=== PATIENT | male | born 1935 | race African-American/Black ===

== ENCOUNTER → 2018-12-08 | Outpatient (CLI) | payer MEDICARE ==
--- NOTE | 2018-12-08 15:31 | RAD ---
AP standing knees, single view, 12/08/2018: HISTORY: Knee pain, swelling There is severe narrowing of the medial compartments of both knee joints with moderate marginal spurring. There is a mild associated varus deformity, more so on the right. A nonspecific sclerotic focus is noted in the proximal left tibia medially. No fracture is identified on this limited exam. Electronically signed by: Darshan Fox MD (12/08/2018 3:28 PM) [facility]
== END | disposition home or self-care (01) ==
LOC: RAD 12:30
PROVIDERS: ATTEND Physical Medicine & Rehabilitation
DX: M17.0 Bilateral primary osteoarthritis of knee (principal); M76.892 Other specified enthesopathies of left lower limb, excluding foot; M76.891 Other specified enthesopathies of right lower limb, excluding foot
CPT/HCPCS: 73565

== ENCOUNTER 2019-07-27 14:34 | Inpatient (IN) | payer MEDICARE ==
[~2019-07-27] VITALS: Ht 167.6 cm; Wt 51.5 kg
[2019-07-27 16:10] VITALS: BP 119/81
--- NOTE | 2019-07-27 16:10 | PDOC1 ---
History and Physical Date of Admission Date of Admission DATE: 07/27/19 TIME: 16:09 Identification/Chief Complaint Chief Complaint Shortness of breath Source Source: Patient History of Present Illness History of Present Illness Mr Dow is an 84yo M w/ PMHx OA, smoker with almost 60 pack year history, ex drinker (stopped 20 years ago) who has not seen a physician in years who presented to [facility] ED feeling short of breath for the past 10 months but particularly so the past 2 days. It is worsened by exertion. No recent sick contacts. In ED at [facility] he was found hypoxic to 86% despite 2L NCO2. He underwent CXR showing diffuse bilateral infiltrates and apical emphysematous changes. Labs significant for K of 5.1, Cr 1.1ALT 173, AST 217, platelets 176, MCV 101. D dimer was 586, troponin 0.11. EKG showed sinus tachycardia, RVH criteria, biatrial enlargement and ST elevations in julia-lateral leads. He was given 40mg IV lasix in the ED and duonebs with only mild improvement. Still required O2. He lives at home in his . 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 Past Medical History Cardiovascular: No pertinent hx Pulmonary: No pertinent hx GI: No pertinent hx Heme/Onc: No pertinent hx Hepatobiliary: No pertinent hx Psych: No pertinent hx Infectious disease: No pertinent hx ENT: No pertinent hx Renal/: No pertinent hx Endocrine: No pertinent hx Dermatology: No pertinent hx Past Surgical History Past Surgical History: No pertinent history Family History Family History: Coronary Artery Disease, High Cholestrol, Hypertension Social History Smoke: 1 pack per day ALCOHOL: none Drugs: None ROS General: YES: Fatigue, Malaise; No: Chills, Night Sweats, Appetite, Other PSYCHOLOGICAL ROS: YES: Anxiety; No: Behavioral Disorder, Concentration difficultie, Decreased libido, Depression, Disorientation, Hallucinations, Hostility, Irritablity, Memory difficulties, Mood Swings, Obsessive thoughts, Physical abuse, Sexual abuse, Sleep disturbances, Suicidal ideation, Other Eyes: No Blurry vision, No Decreased vision, No Double vision, No Dry eyes, No Excessive tearing, No Eye Pain, No Itchy Eyes, No Loss of vision, No Photophobia, No Scotomata, No Uses contacts, No Uses glasses, No Other HEENT: No: Heacaches, Visual Changes, Hearing change, Nasal congestion, Nasal discharge, Oral lesions, Sinus pain, Sore Throat, Epistaxis, Sneezing, Snoring, Tinnitus, Vertigo, Vocal changes, Other ALLERGY AND IMMUNOLOGY: No: Hives, Insect Bite Sensitivity, Itchy/Watery Eyes, Nasal Congestion, Post Nasal Drip, Seasonal Allergies, Other Hematological and Lymphatic: No: Bleeding Problems, Blood Clots, Blood Trans fusions, Brusing, Night Sweats, Pallor, Swollen Lymph Nodes, Other ENDOCRINE: No: Breast Changes, Galactorrhea, Hair Pattern Changes, Hot Flashes, Malaise/lethargy, Mood Swings, Palpitations, Polydipsia/polyuria, Skin Changes, Temperature Intolerance, Unexpected Weight Changes, Other Breast: No New/Changing Breast Lumps, No Nipple changes, No Nipple discharge, No Other Respiratory: YES: Cough, Shortness of breath, SOB with excertion, Tachypnea, Wheezing; No: Hemoptysis, Orthopnea, Pleuritic Pain, Sputum Changes, Stridor, Other Cardiovascular: No Chest Pain, No Palpitations, No Orthopnea, No Paroxysmal Noc. Dyspnea, No Edema, No Lt Headedness, No Other Gastrointestinal: No Nausea, No Vomiting, No Abdominal Pain, No Diarrhea, No Constipation, No Melena, No Hematochezia, No Other Genitourinary: No Dysuria, No Frequency, No Incontinence, No Hematuria, No Retention, No Discharge, No Urgency, No Pain, No Flank Pain, No Other, No , No , No , No , No , No , No Musculoskeletal: No Gait Disturbance, No Joint Pain, No Joint Stiffness, No Joint Swelling, No Muscle Pain, No Muscular Weakness, No Pain In:, No Swelling In:, No Other Neurological: No Behavorial Changes, No Bowel/Bladder ControlChng, No Confusion, No Dizziness, No Gait Disturbance, No Headaches, No Impaired Coord/balance, No Memory Loss, No Numbness/Tingling, No Seizures, No Speech Problems, No Tremors, No Visual Changes, No Weakness, No Other Skin: No Dry Skin, No Eczema, No Hair Changes, No Lumps, No Mole Changes, No Mottling, No Nail Changes, No Pruritus, No Rash, No Skin Lesion Changes, No Other, No Acne Physical Exam General: Alert, Oriented X3, Cooperative, No acute distress HEENT: Atraumatic, PERRLA, EOMI, Mucous membr. moist/pink, Other (Right ocular strabismus) Lungs: Other (Diffuse wheezes) Heart: S1S2, other (Tachycardia) Abdomen: Normal bowel sounds, Soft, No tenderness, No hepatosplenomegaly, No masses Rectal Exam: not examined Extremities: No clubbing, No cyanosis, No edema, Normal pulses, No tenderness/swelling Skin: No rashes, No breakdown, No significant lesion Neuro: Normal gait, Normal speech, Strength at 5/5 X4 ext, Normal tone, Sensation intact, Cranial nerves 3-12 NL, Reflexes 2+ Psych/Mental Status: Mental status NL, Mood NL Images Images CXR - diffuse bilateral infiltrates and apical emphysematous changes. VTE Prophylaxis Ordered VTE Prophylaxis Devices: No VTE Pharmacological Prophylaxi: Yes Assessment/Plan Assessment/Plan A/P: Acute hypoxic respiratory failure - no formal diagnosis of COPD but has emphysematous changes on CXR Emphysema - by CXR. Will consult pulm. This is an acute COPD exacerbation, will give nebs, pulm consultation Smoker - counseled on cessation. Has smoked almost Elevated troponin - denies CP, likely this is demand ischemia, will trend troponins. Advise cardiology of admit and admit to CVC Transaminitis - he stopped drinking 20 years ago, concerning for underlying liver disease. Will trend Pulmonary infiltrates - likely this is interstitial fluid, given lasix in ED Thrombocytopenia - will monitor, uncertain etiology Macrocytosis - no anemia, does not drink. Will check B12 level Tachycardia - concerning with his obvious smoking history and emphysema. D dimer was not negative. Will get CTPA to check for acute pulmonary embolism FEN - Cardiac diet PPX - lovenox FULL CODE Dispo - inpatient for new hypoxia NUHA AMANDA MD Jul 27, 2019 16:10
[2019-07-27] MEDS ORDERED: ONDANSETRON PF 4 MG/2 ML VIAL. IV PRN (16:30)
[2019-07-27] MEDS ORDERED: DOCUSATE SODIUM 100 MG CAPSULE. PO PRN (16:30)
[2019-07-27] MEDS ORDERED: busPIRone 5 MG TABLET. PO PRN (16:30)
[2019-07-27] MEDS ORDERED: ACETAMINOPHEN 325 MG TABLET. PO PRN (16:30)
[2019-07-27] MEDS ORDERED: traZODone 50 MG TABLET. PO PRN (16:30)
[2019-07-27] MEDS ORDERED: ALBUTEROL SULFATE 2.5 MG/3 ML NEBU. NEB PRN (16:30)
[2019-07-27] MEDS: IPRATRPIUM/ALBUTEROL 0.5/2.5MG 3 ML NEBU. NEB SCH ×3 (16:39→23:28)
[2019-07-27 18:55] LABS: CREATININE 1.1 mg/dL (0.7-1.3); GFR 77.5
[2019-07-27] MEDS ORDERED: IOHEXOL 350 MG/ML 100 ML VIAL. IV ONE (19:15)
[2019-07-27 19:17] VITALS: BP 117/72
[2019-07-27] MEDS ORDERED: CONTRAST GIVEN. MC PRN (19:30)
[2019-07-27] MEDS: BUDESONIDE 0.5 MG/2 ML NEBU. NEB SCH (20:35)
[2019-07-27] MEDS: methylPREDNISolone SOD SUCC PF 40 MG/ML VIAL. IV SCH (21:32)
[2019-07-27 22:59] VITALS: BP 90/56
--- NOTE | 2019-07-27 23:50 | RAD ---
EXAM: CT ANGIOGRAPHY OF THE CHEST WITH AND WITHOUT CONTRAST. HISTORY: Tachycardia, elevated d-dimer. TECHNIQUE: Computed tomographic angiography of the chest was performed before and after the intravenous administration of 100 mL Omnipaque 350. 3-D maximum intensity projections were also performed. COMPARISON: None. FINDINGS: Images of the upper abdomen reveal no acute abnormality. Bone windows reveal no suspicious lesions. There is some motion artifact in the bases, limiting sensitivity for small peripheral emboli. No pulmonary emboli are identified. There is no aortic dissection or aneurysm. Bilateral hilar lymph nodes are prominent. One inferiorly on the left measures 2.0 x 1.2 cm. Another inferiorly on the right measures 1.6 x 1.0 cm. There is no pleural or pericardial effusion. The right ventricle is enlarged. There is some flattening of the interventricular septum. The main pulmonary artery measures 3.0 cm. There is moderate to severe centrilobular emphysema. There are mild nodular branching infiltrates in both lower lobes and scattered mild bronchiectasis. IMPRESSION: 1. No pulmonary embolism. 2. Moderate to severe centrilobular emphysema. Mild nodular infiltrates in the bases suggest an atypical infectious process which may be chronic. 3. And bilateral hilar lymph nodes are likely reactive in this setting. Follow-up could be performed if there is persistent concern. 4. Right ventricular enlargement suggests pulmonary arterial hypertension. *One or more of the following individualized dose reduction techniques were utilized for this examination: 1. Automated exposure control. 2. Adjustment of the mA and/or kV according to patient size. 3. Use of iterative reconstruction technique. Electronically signed by: Tomas Workman MD (07/27/2019 11:47 PM) [facility]
[2019-07-28] MEDS: IPRATRPIUM/ALBUTEROL 0.5/2.5MG 3 ML NEBU. NEB SCH ×6 (01:33→23:20)
[2019-07-28 03:21] LABS: BASO % 0 % (0-3); EOS % 0 % (0-3); HEMATOCRIT 50.1 % (39.0-53.0); HEMOGLOBIN 16.2 g/dL (13.0-17.5); LYMPH # 0.3 x10^3/uL (1.0-4.8); LYMPH % 11 % (24-48); MEAN CORPUSCULAR HEMOGLOBIN 33 pg (25-35); MEAN CORPUSCULAR HGB CONC 32 g/dL (31-37); MEAN CORPUSCULAR VOLUME 101 fL (79-100); MONO # 0.2 x10^3/uL (0.0-1.1); MONO % 9 % (0-9); NEUT # 2.3 x10^3/uL (1.8-7.7); NEUT % 80 % (31-73); PLATELET COUNT 159 x10^3/uL (140-400); RED BLOOD COUNT 4.98 x10^6/uL (4.30-5.70); WHITE BLOOD COUNT 2.9 x10^3/uL (4.0-11.0)
[2019-07-28 03:32] VITALS: BP 106/68
[2019-07-28 03:40] LABS: ALBUMIN 2.9 g/dL (3.4-5.0); ALBUMIN/GLOBULIN RATIO 0.7 (1.0-1.7); CALCIUM 8.6 mg/dL (8.5-10.1); CREATININE 0.8 mg/dL (0.7-1.3); POTASSIUM 4.9 mmol/L (3.5-5.1); TOTAL BILIRUBIN 0.3 mg/dL (0.2-1.0); TOTAL PROTEIN 7.2 g/dL (6.4-8.2)
[2019-07-28] MEDS: methylPREDNISolone SOD SUCC PF 40 MG/ML VIAL. IV SCH ×3 (06:13→22:00)
[2019-07-28 07:00] VITALS: BP 99/54
[2019-07-28] MEDS: BUDESONIDE 0.5 MG/2 ML NEBU. NEB SCH ×2 (08:08→20:00)
[2019-07-28 08:10] LABS: CHOLESTEROL/HDL RATIO 3.8
--- NOTE | 2019-07-28 08:15 | EKG ---
[facility] [address] [place] [id number] Test Date: 2019-07-28 Test Time: 09:10:04 Pat Name: RONAL ROMERO Department: Room: 210 1 Gender: M Academic Adviser: SJ : [id number] Requested By: MICHELE RIVERA Order Number: [id number] Reading MD: Barron Smith MD Measurements Intervals [place] Rate: 99 P: 86 [place]: 128 QRS: -146 QRSD: 88 T: -8 QT: 334 QTc: 434 Interpretive Statements SINUS RHYTHM NON-SPECIFIC ST/T CHANGES Electronically Signed On 08-10-2019 9:37:32 SECURITY AND COMPLIANCE ANALYST by Barron Smith MD
--- NOTE | 2019-07-28 08:17 | PDOC ---
PROGRESS NOTES Chief Complaint Chief Complaint A/P: Acute hypoxic respiratory failure - no formal diagnosis of COPD but has emphysematous changes on CXR and CT Emphysema - by CXR. Will consult pulm. This is an acute COPD exacerbation, will give tong, pulm consultation Smoker - counseled on cessation. Has smoked almost Elevated troponin - denies CP, likely this is demand ischemia, will trend troponins. Advise cardiology of admit and admit to CVC Transaminitis - he stopped drinking 20 years ago, concerning for underlying liver disease. Will trend Pulmonary infiltrates - likely this is interstitial fluid, given lasix in ED Thrombocytopenia - will monitor, uncertain etiology Macrocytosis - no anemia, does not drink. Will check B12 level Leukopenia - WBC 2.9 Tachycardia - concerning with his obvious smoking history and emphysema. D dimer was not negative. Will get CTPA to check for acute pulmonary embolism FEN - Cardiac diet PPX - lovenox FULL CODE Dispo - inpatient for new hypoxia History of Present Illness History of Present Illness Mr Dow is an 84yo M w/ PMHx OA, smoker with almost 60 pack year history, ex drinker (stopped 20 years ago) who has not seen a physician in years who pre sented to [facility] ED feeling short of breath for the past 10 months but particularly so the past 2 days. It is worsened by exertion. No recent sick contacts. In ED at [facility] he was found hypoxic to 86% despite 2L NCO2. He underwent CXR showing diffuse bilateral infiltrates and apical emphysematous changes. Labs significant for K of 5.1, Cr 1.1ALT 173, AST 217, platelets 176, MCV 101. D dimer was 586, troponin 0.11. EKG showed sinus tachycardia, RVH criteria, biatrial enlargement and ST martin vations in julia-lateral leads. He was given 40mg IV lasix in the ED and duonebs with only mild improvement. Still required O2. He lives at home in his . 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 CTPA negative for PE. Definitive emphysema. notes that he has been having trouble with word finding difficulty for a few weeks prior to admit. He feels a bit better today. Vitals Vitals Vital Signs Date Time Temp Pulse Resp B/P (MAP) Pulse Ox O2 Delivery O2 Flow Rate FiO2 10/29/19 03:32 98.2 98 18 106/68 (81) 94 Nasal Cannula 3.0 98.2 Physical Exam General: Alert, Oriented X3, Cooperative, No acute distress Abdomen: Normal bowel sounds, Soft, No tenderness, No hepatosplenomegaly, No masses Extremities: No clubbing, No cyanosis, No edema, Normal pulses, No tenderness/swelling Skin: No rashes, No breakdown, No significant lesion Labs LABS Laboratory Tests Test 07/27/19 18:05 07/28/19 00:40 07/28/19 03:05 Blood Urea Nitrogen 28 mg/dL (8-26) 25 mg/dL (8-26) Creatinine 1.1 mg/dL (0.7-1.3) 0.8 mg/dL (0.7-1.3) Estimated GFR (Cockcroft-Gault) 77.5 112.0 Troponin I Quantitative 0.062 ng/mL (0.000-0.055) 0.039 ng/mL (0.000-0.055) 0.054 ng/mL (0.000-0.055) White Blood Count 2.9 x10^3/uL (4.0-11.0) Red Blood Count 4.98 x10^6/uL (4.30-5.70) Hemoglobin 16.2 g/dL (13.0-17.5) Hematocrit 50.1 % (39.0-53.0) Mean Corpuscular Volume 101 fL (79-100) Mean Corpuscular Hemoglobin 33 pg (25-35) Mean Corpuscular Hemoglobin Concent 32 g/dL (31-37) Red Cell Distribution Width 14.0 % (11.5-14.5) Platelet Count 159 x10^3/uL (140-400) Neutrophils (%) (Auto) 80 % (31-73) Lymphocytes (%) (Auto) 11 % (24-48) Monocytes (%) (Auto) 9 % (0-9) Eosinophils (%) (Auto) 0 % (0-3) Basophils (%) (Auto) 0 % (0-3) Neutrophils # (Auto) 2.3 x10^3/uL (1.8-7.7) Lymphocytes # (Auto) 0.3 x10^3/uL (1.0-4.8) Monocytes # (Auto) 0.2 x10^3/uL (0.0-1.1) Eosinophils # (Auto) 0.0 x10^3/uL (0.0-0.7) Basophils # (Auto) 0.0 x10^3/uL (0.0-0.2) Sodium Level 144 mmol/L (136-145) Potassium Level 4.9 mmol/L (3.5-5.1) Chloride Level 100 mmol/L (98-107) Carbon Dioxide Level 41 mmol/L (21-32) Anion Gap 3 (6-14) BUN/Creatinine Ratio 31 (6-20) Glucose Level 170 mg/dL (70-99) Calcium Level 8.6 mg/dL (8.5-10.1) Total Bilirubin 0.3 mg/dL (0.2-1.0) Aspartate Amino Transf (AST/SGOT) 128 U/L (15-37) Alanine Aminotransferase (ALT/SGPT) 177 U/L (16-63) Alkaline Phosphatase 117 U/L (46-116) GB-Vmp-B-Type Natriuretic Peptide 6693 pg/mL (0-449) Total Protein 7.2 g/dL (6.4-8.2) Albumin 2.9 g/dL (3.4-5.0) Albumin/Globulin Ratio 0.7 (1.0-1.7) Triglycerides Level 75 mg/dL (0-150) Cholesterol Level 165 mg/dL (0-200) LDL Cholesterol, Calculated 107 mg/dL (0-100) VLDL Cholesterol, Calculated 15 mg/dL (0-40) Non-HDL Cholesterol Calculated 122 mg/dL (0-129) HDL Cholesterol 43 mg/dL (40-60) Cholesterol/HDL Ratio 3.8 Vitamin B12 Level 1469 pg/mL (247-911) Comment Review of Relevant I have reviewed the following items paris (where applicable) has been applied. Labs Laboratory Tests Test 07/27/19 18:05 07/28/19 00:40 07/28/19 03:05 Blood Urea Nitrogen 28 mg/dL (8-26) 25 mg/dL (8-26) Creatinine 1.1 mg/dL (0.7-1.3) 0.8 mg/dL (0.7-1.3) Estimated GFR (Cockcroft-Gault) 77.5 112.0 Troponin I Quantitative 0.062 ng/mL (0.000-0.055) 0.039 ng/mL (0.000-0.055) 0.054 ng/mL (0.000-0.055) White Blood Count 2.9 x10^3/uL (4.0-11.0) Red Blood Count 4.98 x10^6/uL (4.30-5.70) Hemoglobin 16.2 g/dL (13.0-17.5) Hematocrit 50.1 % (39.0-53.0) Mean Corpuscular Volume 101 fL (79-100) Mean Corpuscular Hemoglobin 33 pg (25-35) Mean Corpuscular Hemoglobin Concent 32 g/dL (31-37) Red Cell Distribution Width 14.0 % (11.5-14.5) Platelet Count 159 x10^3/uL (140-400) Neutrophils (%) (Auto) 80 % (31-73) Lymphocytes (%) (Auto) 11 % (24-48) Monocytes (%) (Auto) 9 % (0-9) Eosinophils (%) (Auto) 0 % (0-3) Basophils (%) (Auto) 0 % (0-3) Neutrophils # (Auto) 2.3 x10^3/uL (1.8-7.7) Lymphocytes # (Auto) 0.3 x10^3/uL (1.0-4.8) Monocytes # (Auto) 0.2 x10^3/uL (0.0-1.1) Eosinophils # (Auto) 0.0 x10^3/uL (0.0-0.7) Basophils # (Auto) 0.0 x10^3/uL (0.0-0.2) Sodium Level 144 mmol/L (136-145) Potassium Level 4.9 mmol/L (3.5-5.1) Chloride Level 100 mmol/L (98-107) Carbon Dioxide Level 41 mmol/L (21-32) Anion Gap 3 (6-14) BUN/Creatinine Ratio 31 (6-20) Glucose Level 170 mg/dL (70-99) Calcium Level 8.6 mg/dL (8.5-10.1) Total Bilirubin 0.3 mg/dL (0.2-1.0) Aspartate Amino Transf (AST/SGOT) 128 U/L (15-37) Alanine Aminotransferase (ALT/SGPT) 177 U/L (16-63) Alkaline Phosphatase 117 U/L (46-116) LT-Abn-K-Type Natriuretic Peptide 6693 pg/mL (0-449) Total Protein 7.2 g/dL (6.4-8.2) Albumin 2.9 g/dL (3.4-5.0) Albumin/Globulin Ratio 0.7 (1.0-1.7) Triglycerides Level 75 mg/dL (0-150) Cholesterol Level 165 mg/dL (0-200) LDL Cholesterol, Calculated 107 mg/dL (0-100) VLDL Cholesterol, Calculated 15 mg/dL (0-40) Non-HDL Cholesterol Calculated 122 mg/dL (0-129) HDL Cholesterol 43 mg/dL (40-60) Cholesterol/HDL Ratio 3.8 Vitamin B12 Level 1469 pg/mL (247-911) Laboratory Tests Test 07/27/19 18:05 07/28/19 00:40 07/28/19 03:05 Blood Urea Nitrogen 28 mg/dL (8-26) 25 mg/dL (8-26) Creatinine 1.1 mg/dL (0.7-1.3) 0.8 mg/dL (0.7-1.3) Estimated GFR (Cockcroft-Gault) 77.5 112.0 Troponin I Quantitative 0.062 ng/mL (0.000-0.055) 0.039 ng/mL (0.000-0.055) 0.054 ng/mL (0.000-0.055) White Blood Count 2.9 x10^3/uL (4.0-11.0) Red Blood Count 4.98 x10^6/uL (4.30-5.70) Hemoglobin 16.2 g/dL (13.0-17.5) Hematocrit 50.1 % (39.0-53.0) Mean Corpuscular Volume 101 fL (79-100) Mean Corpuscular Hemoglobin 33 pg (25-35) Mean Corpuscular Hemoglobin Concent 32 g/dL (31-37) Red Cell Distribution Width 14.0 % (11.5-14.5) Platelet Count 159 x10^3/uL (140-400) Neutrophils (%) (Auto) 80 % (31-73) Lymphocytes (%) (Auto) 11 % (24-48) Monocytes (%) (Auto) 9 % (0-9) Eosinophils (%) (Auto) 0 % (0-3) Basophils (%) (Auto) 0 % (0-3) Neutrophils # (Auto) 2.3 x10^3/uL (1.8-7.7) Lymphocytes # (Auto) 0.3 x10^3/uL (1.0-4.8) Monocytes # (Auto) 0.2 x10^3/uL (0.0-1.1) Eosinophils # (Auto) 0.0 x10^3/uL (0.0-0.7) Basophils # (Auto) 0.0 x10^3/uL (0.0-0.2) Sodium Level 144 mmol/L (136-145) Potassium Level 4.9 mmol/L (3.5-5.1) Chloride Level 100 mmol/L (98-107) Carbon Dioxide Level 41 mmol/L (21-32) Anion Gap 3 (6-14) BUN/Creatinine Ratio 31 (6-20) Glucose Level 170 mg/dL (70-99) Calcium Level 8.6 mg/dL (8.5-10.1) Total Bilirubin 0.3 mg/dL (0.2-1.0) Aspartate Amino Transf (AST/SGOT) 128 U/L (15-37) Alanine Aminotransferase (ALT/SGPT) 177 U/L (16-63) Alkaline Phosphatase 117 U/L (46-116) DR-Etq-W-Type Natriuretic Peptide 6693 pg/mL (0-449) Total Protein 7.2 g/dL (6.4-8.2) Albumin 2.9 g/dL (3.4-5.0) Albumin/Globulin Ratio 0.7 (1.0-1.7) Triglycerides Level 75 mg/dL (0-150) Cholesterol Level 165 mg/dL (0-200) LDL Cholesterol, Calculated 107 mg/dL (0-100) VLDL Cholesterol, Calculated 15 mg/dL (0-40) Non-HDL Cholesterol Calculated 122 mg/dL (0-129) HDL Cholesterol 43 mg/dL (40-60) Cholesterol/HDL Ratio 3.8 Vitamin B12 Level 1469 pg/mL (247-911) Medications Current Medications Ondansetron HCl (Zofran) 4 mg PRN Q4HRS PRN IV NAUSEA/VOMITING; Start 07/27/19 at 16:30 Acetaminophen (Tylenol) 650 mg PRN Q4HRS PRN PO TEMP OVER 100.4F OR MILD PAIN; Start 07/27/19 at 16:30 Docusate Sodium (Colace) 100 mg PRN BID PRN PO CONSTIPATION; Start 07/27/19 at 16:30 Albuterol Sulfate (Ventolin Neb Soln) 2.5 mg PRN Q4HRS PRN NEB SHORTNESS OF BREATH; Start 07/27/19 at 16:30 Albuterol/ Ipratropium (Duoneb) 3 ml Q4H NEB Last administered on 07/28/19at 08:08; Start 07/27/19 at 16:30 Enoxaparin Sodium (Lovenox 40mg Syringe) 40 mg DAILY SQ ; Start 07/28/19 at 09:00 Methylprednisolone Sodium Succinate (SOLU-Medrol 40MG VIAL) 40 mg Q8HRS IV Last administered on 07/28/19at 06:13; Start 07/27/19 at 22:00 Buspirone HCl (Buspar) 5 mg PRN TID PRN PO anxiety; Start 07/27/19 at 16:30 Trazodone HCl (Desyrel) 50 mg PRN QHS PRN PO INSOMNIA; Start 07/27/19 at 16:30 Budesonide (Pulmicort) 0.5 mg RTBID NEB Last administered on 07/28/19at 08:08; Start 07/27/19 at 20:00 Iohexol (Omnipaque 350 Mg/ml) 100 ml 1X ONCE IV Last administered on 07/27/19at 20:50; Start 07/27/19 at 19:15; Stop 07/27/19 at 19:16; Status DC Info (CONTRAST GIVEN -- Rx MONITORING) 1 each PRN DAILY PRN MC SEE COMMENTS; Start 07/27/19 at 19:30; Stop 07/29/19 at 19:29 Furosemide (Lasix) 40 mg BID92 IVP ; Start 07/28/19 at 09:00 Vitals/I & O Vital Sign - Last 24 Hours 07/27/19 07/27/19 07/27/19 07/27/19 16:00 16:10 16:41 19:17 Temp 98.4 98.1 98.4 98.1 Pulse 119 99 Resp 24 18 B/P (MAP) 119/81 (94) 117/72 (87) Pulse Ox 96 93 96 O2 Delivery Nasal Cannula Nasal Cannula Nasal Cannula Nasal Cannula O2 Flow Rate 3.0 3.0 3.0 3.0 07/27/19 07/27/19 07/27/19 07/28/19 20:00 20:36 22:59 01:33 Temp 97.8 97.8 Pulse 102 Resp 18 B/P (MAP) 90/56 (67) Pulse Ox 95 94 96 O2 Delivery Nasal Cannula Nasal Cannula Nasal Cannula Nasal Cannula O2 Flow Rate 3.0 3.0 3.0 3.0 07/28/19 03:32 Temp 98.2 98.2 Pulse 98 Resp 18 B/P (MAP) 106/68 (81) Pulse Ox 94 O2 Delivery Nasal Cannula O2 Flow Rate 3.0 Intake and Output 07/27/19 07/27/19 07/28/19 15:00 23:00 07:00 Intake Total 0 ml 0 ml Output Total 500 ml 200 ml Balance -500 ml -200 ml Images CTPA - 1. No pulmonary embolism. 2. Moderate to severe centrilobular emphysema. Mild nodular infiltrates in the bases suggest an atypical infectious process which may be chronic. 3. And bilateral hilar lymph nodes are likely reactive in this setting. Follow- up could be performed if there is persistent concern. 4. Right ventricular enlargement suggests pulmonary arterial hypertension. NUHA AMANDA MD Jul 28, 2019 08:17
[2019-07-28 08:45] LABS: PROTHROMBIN TIME PATIENT 14.1 SEC (11.7-14.0)
[2019-07-28 09:08] LABS: % ATYL 2 % (0-0); % BANDS 17 % (0-9); % EOS 1 % (0-5); % LYMPHS 14 % (24-48); % MONOS 17 % (0-10); % SEGS 49 % (35-66); PLT ESTIMATE ADEQUATE (ADEQUATE)
[2019-07-28 09:09] LABS: TARGET CELLS PRESENT
--- NOTE | 2019-07-28 09:18 | PDOC2 ---
MICHELE RIVERA TRAFFIC DIVISION COMMANDING OFFICER 07/28/19 0918: CARDIAC CONSULT DATE OF CONSULT Date of Consult DATE: 07/28/19 TIME: 09:00 REASON FOR CONSULT Reason for Consult: SOB, elevated troponin REFERRING PHYSICIAN Referring Physician: Missael SOURCE Source: Chart review, Patient HISTORY OF PRESENT ILLNESS HISTORY OF PRESENT ILLNESS This is an 84 yo male admitted for complains of shortness of breath. Initially he was at [facility] urgent care and transferred here for further evaluation and treatment. He was noted with COPD symptoms. He is a poor historian but told me that he has not been to a doctor for many years and does not take any medications. He is slow to response to my questions and appears to be finding words and appears to be looking to the right many times as I was talking to him. 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 His SOA and currently not in pain. No fever or chills. Family is not available for further details. I asked him if he had surgery in the past and told me initially none then maybe one then I dont know while looking to the right side. No other obvious focal deficits noted. I tried to contact his but no answer. PAST SURGICAL HISTORY Past Surgical History: No pertinent history FAMILY HISTORY Family History: Family History Unknown SOCIAL HISTORY Smoke: <1 pack per day ALCOHOL: other (quit many years ago) Drugs: None Lives: with Family CURRENT MEDICATIONS CURRENT MEDICATIONS Current Medications Medications (Trade) Dose Ordered Sig/Delores Route PRN Reason Start Time Stop Time Status Last Admin Dose Admin Albuterol/ Ipratropium (Duoneb) 3 ml Q4H [facility] 07/27/19 16:30 07/28/19 08:08 Methylprednisolone Sodium Succinate (SOLU-Medrol 40MG VIAL) 40 mg Q8HRS IV 07/27/19 22:00 07/28/19 06:13 Budesonide (Pulmicort) 0.5 mg RTBID [facility] 07/27/19 20:00 07/28/19 08:08 Iohexol (Omnipaque 350 Mg/ml) 100 ml 1X ONCE IV 07/27/19 19:15 07/27/19 19:16 DC 07/27/19 20:50 ALLERGIES ALLERGIES: Coded Allergies: No Known Drug Allergies (Unverified , 07/27/19) ROS Review of System limited, poor historian PHYSICAL EXAM General: Alert, Oriented X3, Cooperative, No acute distress HEENT: Atraumatic, Mucous membr. moist/pink Lungs: Other (dimnished with diffuse wheeze) Heart: Regular rate (SR/ST), Other (distant heart sounds) Abdomen: Soft Extremities: No cyanosis, No edema Skin: No breakdown, No significant lesion Neuro: Sensation intact, Other (word finding; slow response) Psych/Mental Status: Other (flat affect) MUSCULOSKELETAL: Osteoarthritic changes both hands, Other (generalized weakness ) VITALS/I&O VITALS/I&O: Vital Signs Date Time Temp Pulse Resp B/P (MAP) Pulse Ox O2 Delivery O2 Flow Rate FiO2 07/28/19 08:08 95 Nasal Cannula 3.0 07/28/19 07:00 96.9 95 18 99/54 (69) 96.9 I & O 07/27/19 07/27/19 07/28/19 15:00 23:00 07:00 Intake Total 0 ml 0 ml Output Total 500 ml 200 ml Balance -500 ml -200 ml LABS Lab: Laboratory Tests Test 07/27/19 18:05 07/28/19 00:40 07/28/19 03:05 07/28/19 08:05 Blood Urea Nitrogen 28 mg/dL (8-26) H 25 mg/dL (8-26) Creatinine 1.1 mg/dL (0.7-1.3) 0.8 mg/dL (0.7-1.3) Estimated GFR (Cockcroft-Gault) 77.5 112.0 Troponin I Quantitative 0.062 ng/mL (0.000-0.055) 0.039 ng/mL (0.000-0.055) 0.054 ng/mL (0.000-0.055) White Blood Count 2.9 x10^3/uL (4.0-11.0) L Red Blood Count 4.98 x10^6/uL (4.30-5.70) Hemoglobin 16.2 g/dL (13.0-17.5) Hematocrit 50.1 % (39.0-53.0) Mean Corpuscular Volume 101 fL (79-100) H Mean Corpuscular Hemoglobin 33 pg (25-35) Mean Corpuscular Hemoglobin Concent 32 g/dL (31-37) Red Cell Distribution Width 14.0 % (11.5-14.5) Platelet Count 159 x10^3/uL (140-400) Neutrophils (%) (Auto) 80 % (31-73) H Lymphocytes (%) (Auto) 11 % (24-48) L Monocytes (%) (Auto) 9 % (0-9) Eosinophils (%) (Auto) 0 % (0-3) Basophils (%) (Auto) 0 % (0-3) Neutrophils # (Auto) 2.3 x10^3/uL (1.8-7.7) Lymphocytes # (Auto) 0.3 x10^3/uL (1.0-4.8) L Monocytes # (Auto) 0.2 x10^3/uL (0.0-1.1) Eosinophils # (Auto) 0.0 x10^3/uL (0.0-0.7) Basophils # (Auto) 0.0 x10^3/uL (0.0-0.2) Platelet Estimate Pending Sodium Level 144 mmol/L (136-145) Potassium Level 4.9 mmol/L (3.5-5.1) Chloride Level 100 mmol/L (98-107) Carbon Dioxide Level 41 mmol/L (21-32) H Anion Gap 3 (6-14) L BUN/Creatinine Ratio 31 (6-20) H Glucose Level 170 mg/dL (70-99) H Calcium Level 8.6 mg/dL (8.5-10.1) Total Bilirubin 0.3 mg/dL (0.2-1.0) Aspartate Amino Transferase (AST) 128 U/L (15-37) H Alanine Aminotransferase (ALT) 177 U/L (16-63) H Alkaline Phosphatase 117 U/L (46-116) H JQ-Cui-T-Type Natriuretic Peptide 6693 pg/mL (0-449) H Total Protein 7.2 g/dL (6.4-8.2) Albumin 2.9 g/dL (3.4-5.0) L Albumin/Globulin Ratio 0.7 (1.0-1.7) L Triglycerides Level 75 mg/dL (0-150) Cholesterol Level 165 mg/dL (0-200) LDL Cholesterol, Calculated 107 mg/dL (0-100) H VLDL Cholesterol, Calculated 15 mg/dL (0-40) Non-HDL Cholesterol Calculated 122 mg/dL (0-129) HDL Cholesterol 43 mg/dL (40-60) Cholesterol/HDL Ratio 3.8 Vitamin B12 Level 1469 pg/mL (247-911) H Thyroid Stimulating Hormone (TSH) 0.553 uIU/mL (0.358-3.74) Prothrombin Time 14.1 SEC (11.7-14.0) H Prothrombin Time INR 1.1 (0.8-1.1) Laboratory Tests 07/28/19 03:05 Laboratory Tests 07/27/19 18:05 07/28/19 03:05 ASSESSMENT/PLAN ASSESSMENT/PLAN 1, Encephalopathy vs CVA syndrome 2. AECOPD 3. Acute on chronic diastolic CHF 4. Suspect Cor pulmonale 5. Mild Elevated troponin: peaked at 0.06, demand mediated 6. Transaminitis: hepatic congestion vs liver disease 7. Tobaccoism 8. Hyperglycemia: possibly from steroids 9. Arrhythmia: PSVT/PAT Recommendation 1. Stat CT head no contrast..NH3 2. TTE, INR, A1C, lipids 3. Monitor rhythm. Further workup pending tests. 4. ASA. I tried to contact spouse but no answer. No known medications or PMHx so far. 5. Continue with lasix therapy. Check Mg. 6. Consult pulmonary. Steroids in place AGNES DE LA CURZ MD 07/28/19 1718: CARDIAC CONSULT ASSESSMENT/PLAN ASSESSMENT/PLAN Patient seen and examined. Agree with NURSES EDUCATOR's assessment and plan. Continue neurology workup for aphasia Acute respiratory failure is probably secondary to combination of acute COPD exacerbation and mild acute on chronic diastolic heart failure Continue gentle diuresis Continue treatment for COPD exacerbation per pulmonary team 2-D echo showed normal LV systolic function with moderate pulmonary hypertension Thank you for your consultation MICHELE RIVERA APRN Jul 28, 2019 09:18 AGNES DE LA CRUZ MD Jul 28, 2019 17:18
--- NOTE | 2019-07-28 09:46 | RAD ---
CT HEAD WO CONTRAST History: Weakness, word finding difficulty Comparison: None. Technique: Noncontrast CT imaging was performed of the head. Exposure: One or more of the following individualized dose reduction techniques were utilized for this examination: 1. Automated exposure control 2. Adjustment of the mA and/or kV according to patient size 3. Use of iterative reconstruction technique. Findings: There is some motion degradation. Mild hyperdensity of the basal ganglia greater on the left is likely due to mineralization, no convincing acute intracranial hemorrhage identified. There is scattered at least mild ill-defined low-density of the supratentorial parenchyma bilaterally. Focus of lower density of the right basal ganglia and cardona radiata is likely due to older lacunar infarct. There is no midline shift. Ventricular size is within normal limits. There is some deviation of the nasal septum to the right. There is left arjun bullosa. Mastoid air cells are aerated. Paranasal sinuses are overall aerated. Impression: 1. No convincing acute intracranial hemorrhage is identified, exam degraded by motion. 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 Other ill-defined low-density of the supratentorial parenchyma bilaterally is nonspecific, more commonly due to chronic microvascular ischemic disease. MRI would more accurately evaluate for acute infarct. Electronically signed by: David Polo MD (07/28/2019 9:43 AM) [id number]
[2019-07-28] MEDS: FUROSEMIDE 40 MG/4 ML VIAL. IVP SCH ×2 (10:30→15:06)
--- NOTE | 2019-07-28 10:38 | NUR ---
SS following for discharge planning. SS reviewed pt chart. Pt is from home with spouse and is currently requiring oxygen. PT/OT ordered. SS will continue to follow for discharge planning.
[2019-07-28 12:10] LABS: BILIRUBIN,URINE NEGATIVE (NEG); CLARITY,URINE CLOUDY; COLOR,URINE YELLOW; NITRITE,URINE NEGATIVE (NEG); PH,URINE 5.5; PROTEIN,URINE NEGATIVE (NEG-TRACE); UROBILINOGEN,URINE 0.2 mg/dL (0.2 mg/dL)
[2019-07-28 12:20] LABS: BACTERIA,URINE FEW /HPF (0-FEW); RBC,URINE OCC /HPF (0-2); SQUAMOUS EPITHELIAL CELL,UR FEW /LPF; WBC,URINE OCC /HPF (0-4)
[2019-07-28] MEDS: ENOXAPARIN 40 MG/0.4 ML SYRINGE. SQ SCH (13:13)
--- NOTE | 2019-07-28 13:58 | PDOC ---
PULMONARY PROGRESS NOTES Vitals Vital Signs Date Time Temp Pulse Resp B/P (MAP) Pulse Ox O2 Delivery O2 Flow Rate FiO2 07/28/19 08:08 95 Nasal Cannula 3.0 07/28/19 07:00 96.9 95 18 99/54 (69) 96.9 Labs Laboratory Tests Test 07/27/19 18:05 07/28/19 00:40 07/28/19 03:05 07/28/19 08:05 Blood Urea Nitrogen 28 mg/dL (8-26) 25 mg/dL (8-26) Creatinine 1.1 mg/dL (0.7-1.3) 0.8 mg/dL (0.7-1.3) Estimated GFR (Cockcroft-Gault) 77.5 112.0 Troponin I Quantitative 0.062 ng/mL (0.000-0.055) 0.039 ng/mL (0.000-0.055) 0.054 ng/mL (0.000-0.055) White Blood Count 2.9 x10^3/uL (4.0-11.0) Red Blood Count 4.98 x10^6/uL (4.30-5.70) Hemoglobin 16.2 g/dL (13.0-17.5) Hematocrit 50.1 % (39.0-53.0) Mean Corpuscular Volume 101 fL (79-100) Mean Corpuscular Hemoglobin 33 pg (25-35) Mean Corpuscular Hemoglobin Concent 32 g/dL (31-37) Red Cell Distribution Width 14.0 % (11.5-14.5) Platelet Count 159 x10^3/uL (140-400) Neutrophils (%) (Auto) 80 % (31-73) Lymphocytes (%) (Auto) 11 % (24-48) Monocytes (%) (Auto) 9 % (0-9) Eosinophils (%) (Auto) 0 % (0-3) Basophils (%) (Auto) 0 % (0-3) Neutrophils # (Auto) 2.3 x10^3/uL (1.8-7.7) Lymphocytes # (Auto) 0.3 x10^3/uL (1.0-4.8) Monocytes # (Auto) 0.2 x10^3/uL (0.0-1.1) Eosinophils # (Auto) 0.0 x10^3/uL (0.0-0.7) Basophils # (Auto) 0.0 x10^3/uL (0.0-0.2) Segmented Neutrophils % 49 % (35-66) Band Neutrophils % 17 % (0-9) Lymphocytes % 14 % (24-48) Atypical Lymphocytes % (Manual) 2 % (0-0) Monocytes % 17 % (0-10) Eosinophils % 1 % (0-5) Platelet Estimate Adequate (ADEQUATE) Large Platelets Few Giant Platelets Present Target Cells Present Sodium Level 144 mmol/L (136-145) Potassium Level 4.9 mmol/L (3.5-5.1) Chloride Level 100 mmol/L (98-107) Carbon Dioxide Level 41 mmol/L (21-32) Anion Gap 3 (6-14) BUN/Creatinine Ratio 31 (6-20) Glucose Level 170 mg/dL (70-99) Calcium Level 8.6 mg/dL (8.5-10.1) Magnesium Level 2.1 mg/dL (1.8-2.4) Total Bilirubin 0.3 mg/dL (0.2-1.0) Aspartate Amino Transf (AST/SGOT) 128 U/L (15-37) Alanine Aminotransferase (ALT/SGPT) 177 U/L (16-63) Alkaline Phosphatase 117 U/L (46-116) XM-Vmd-D-Type Natriuretic Peptide 6693 pg/mL (0-449) Total Protein 7.2 g/dL (6.4-8.2) Albumin 2.9 g/dL (3.4-5.0) Albumin/Globulin Ratio 0.7 (1.0-1.7) Triglycerides Level 75 mg/dL (0-150) Cholesterol Level 165 mg/dL (0-200) LDL Cholesterol, Calculated 107 mg/dL (0-100) VLDL Cholesterol, Calculated 15 mg/dL (0-40) Non-HDL Cholesterol Calculated 122 mg/dL (0-129) HDL Cholesterol 43 mg/dL (40-60) Cholesterol/HDL Ratio 3.8 Vitamin B12 Level 1469 pg/mL (247-911) Thyroid Stimulating Hormone (TSH) 0.553 uIU/mL (0.358-3.74) Prothrombin Time 14.1 SEC (11.7-14.0) Prothromb Time International Ratio 1.1 (0.8-1.1) Test 07/28/19 10:30 07/28/19 11:51 Ammonia < 10 mcmol/L (11-34) Procalcitonin 0.23 ng/mL (0.00-0.10) Urine Collection Type Unknown Urine Color Yellow Urine Clarity Cloudy Urine pH 5.5 Urine Specific [place] 1.010 Urine Protein Negative mg/dL (NEG-TRACE) Urine Glucose (UA) Negative mg/dL (NEG) Urine Ketones (Stick) Negative mg/dL (NEG) Urine Blood Small (NEG) Urine Nitrite Negative (NEG) Urine Bilirubin Negative (NEG) Urine Urobilinogen Dipstick 0.2 mg/dL (0.2 mg/dL) Urine Leukocyte Esterase Negative (NEG) Urine RBC Occ /HPF (0-2) Urine WBC Occ /HPF (0-4) Urine Squamous Epithelial Cells Few /LPF Urine Bacteria Few /HPF (0-FEW) Laboratory Tests Test 07/27/19 18:05 07/28/19 00:40 07/28/19 03:05 07/28/19 08:05 Blood Urea Nitrogen 28 mg/dL (8-26) 25 mg/dL (8-26) Creatinine 1.1 mg/dL (0.7-1.3) 0.8 mg/dL (0.7-1.3) Estimated GFR (Cockcroft-Gault) 77.5 112.0 Troponin I Quantitative 0.062 ng/mL (0.000-0.055) 0.039 ng/mL (0.000-0.055) 0.054 ng/mL (0.000-0.055) White Blood Count 2.9 x10^3/uL (4.0-11.0) Red Blood Count 4.98 x10^6/uL (4.30-5.70) Hemoglobin 16.2 g/dL (13.0-17.5) Hematocrit 50.1 % (39.0-53.0) Mean Corpuscular Volume 101 fL (79-100) Mean Corpuscular Hemoglobin 33 pg (25-35) Mean Corpuscular Hemoglobin Concent 32 g/dL (31-37) Red Cell Distribution Width 14.0 % (11.5-14.5) Platelet Count 159 x10^3/uL (140-400) Neutrophils (%) (Auto) 80 % (31-73) Lymphocytes (%) (Auto) 11 % (24-48) Monocytes (%) (Auto) 9 % (0-9) Eosinophils (%) (Auto) 0 % (0-3) Basophils (%) (Auto) 0 % (0-3) Neutrophils # (Auto) 2.3 x10^3/uL (1.8-7.7) Lymphocytes # (Auto) 0.3 x10^3/uL (1.0-4.8) Monocytes # (Auto) 0.2 x10^3/uL (0.0-1.1) Eosinophils # (Auto) 0.0 x10^3/uL (0.0-0.7) Basophils # (Auto) 0.0 x10^3/uL (0.0-0.2) Segmented Neutrophils % 49 % (35-66) Band Neutrophils % 17 % (0-9) Lymphocytes % 14 % (24-48) Atypical Lymphocytes % (Manual) 2 % (0-0) Monocytes % 17 % (0-10) Eosinophils % 1 % (0-5) Platelet Estimate Adequate (ADEQUATE) Large Platelets Few Giant Platelets Present Target Cells Present Sodium Level 144 mmol/L (136-145) Potassium Level 4.9 mmol/L (3.5-5.1) Chloride Level 100 mmol/L (98-107) Carbon Dioxide Level 41 mmol/L (21-32) Anion Gap 3 (6-14) BUN/Creatinine Ratio 31 (6-20) Glucose Level 170 mg/dL (70-99) Calcium Level 8.6 mg/dL (8.5-10.1) Magnesium Level 2.1 mg/dL (1.8-2.4) Total Bilirubin 0.3 mg/dL (0.2-1.0) Aspartate Amino Transf (AST/SGOT) 128 U/L (15-37) Alanine Aminotransferase (ALT/SGPT) 177 U/L (16-63) Alkaline Phosphatase 117 U/L (46-116) EA-Jig-E-Type Natriuretic Peptide 6693 pg/mL (0-449) Total Protein 7.2 g/dL (6.4-8.2) Albumin 2.9 g/dL (3.4-5.0) Albumin/Globulin Ratio 0.7 (1.0-1.7) Triglycerides Level 75 mg/dL (0-150) Cholesterol Level 165 mg/dL (0-200) LDL Cholesterol, Calculated 107 mg/dL (0-100) VLDL Cholesterol, Calculated 15 mg/dL (0-40) Non-HDL Cholesterol Calculated 122 mg/dL (0-129) HDL Cholesterol 43 mg/dL (40-60) Cholesterol/HDL Ratio 3.8 Vitamin B12 Level 1469 pg/mL (247-911) Thyroid Stimulating Hormone (TSH) 0.553 uIU/mL (0.358-3.74) Prothrombin Time 14.1 SEC (11.7-14.0) Prothromb Time International Ratio 1.1 (0.8-1.1) Test 07/28/19 10:30 07/28/19 11:51 Ammonia < 10 mcmol/L (11-34) Procalcitonin 0.23 ng/mL (0.00-0.10) Urine Collection Type Unknown Urine Color Yellow Urine Clarity Cloudy Urine pH 5.5 Urine Specific [place] 1.010 Urine Protein Negative mg/dL (NEG-TRACE) Urine Glucose (UA) Negative mg/dL (NEG) Urine Ketones (Stick) Negative mg/dL (NEG) Urine Blood Small (NEG) Urine Nitrite Negative (NEG) Urine Bilirubin Negative (NEG) Urine Urobilinogen Dipstick 0.2 mg/dL (0.2 mg/dL) Urine Leukocyte Esterase Negative (NEG) Urine RBC Occ /HPF (0-2) Urine WBC Occ /HPF (0-4) Urine Squamous Epithelial Cells Few /LPF Urine Bacteria Few /HPF (0-FEW) Impression . FULL NOTED DICTATED AECOPD POSSIBLE ATYPICAL INFECTION TOBACCO USE SEE ORDER 6 MIN WALK COLBY MOSELEY MD Jul 28, 2019 13:58
[2019-07-28 15:00] VITALS: BP 98/53
--- NOTE | 2019-07-28 15:31 | NUR ---
SS following up with discharge planning. PT/OT recommended usp unit. SS met with pt and family in room to discuss discharge planning and usp unit. Pt and pt's family requested to complete Healthcare POA. SS completed Healthcare POA with family. Pt and family agreeable to usp unit and asked SS for brochures and information regarding all usp units in [place], [place]. SS provided brochures and information for usp units. Pt and pt's family reported that they would contact SS with a decision. SS will continue to follow for discharge planning.
--- NOTE | 2019-07-28 15:43 | PDOC2 ---
NEUROLOGY CONSULT Date of Admission Date of Admission DATE: 07/28/19 TIME: 15:33 Reason for Consult Reason for Consult: Word finding problems Referring Physician Referring Physician: Dr. Canas Source Source: Chart review, Patient History of Present Illness History of Present Illness The patient is an 84-year-old right-handed male who presents with respiratory insufficiency and elevated troponins. I'm asked to see him regarding word finding problems. He has noticed this for several weeks. There is no history of stroke, seizure, or head injury. Baseline he gets around with a cane or holding on to things, and his does all the cooking, cleaning, and finances. He does drive and does not get lost. He has not seen a doctor in several years. Past Medical History Cardiovascular: No pertinent hx Pulmonary: No pertinent hx GI: No pertinent hx Hepatobiliary: No pertinent hx Musculoskeletal: Osteoarthritis Past Surgical History Past Surgical History: No pertinent history Family History Family History: CAD, Hypertension Social History Social History , smoked at least a pack of cigarettes a day until about 3 weeks ago, no alcohol, [employer] Current Medications Current Medications Current Medications Ondansetron HCl (Zofran) 4 mg PRN Q4HRS PRN IV NAUSEA/VOMITING; Start 07/27/19 at 16:30 Acetaminophen (Tylenol) 650 mg PRN Q4HRS PRN PO TEMP OVER 100.4F OR MILD PAIN; Start 07/27/19 at 16:30 Docusate Sodium (Colace) 100 mg PRN BID PRN PO CONSTIPATION; Start 07/27/19 at 16:30 Albuterol Sulfate (Ventolin Neb Soln) 2.5 mg PRN Q4HRS PRN NEB SHORTNESS OF B REATH; Start 07/27/19 at 16:30 Albuterol/ Ipratropium (Duoneb) 3 ml Q4H NEB Last administered on 07/28/19at 13:30; Start 07/27/19 at 16:30 Enoxaparin Sodium (Lovenox 40mg Syringe) 40 mg DAILY SQ Last administered on 07/28/19at 13:13; Start 07/28/19 at 09:00 Methylprednisolone Sodium Succinate (SOLU-Medrol 40MG VIAL) 40 mg Q8HRS IV Last administered on 07/28/19at 15:06; Start 07/27/19 at 22:00 Buspirone HCl (Buspar) 5 mg PRN TID PRN PO anxiety; Start 07/27/19 at 16:30 Trazodone HCl (Desyrel) 50 mg PRN QHS PRN PO INSOMNIA; Start 07/27/19 at 16:30 Budesonide (Pulmicort) 0.5 mg RTBID NEB Last administered on 07/28/19at 08:08; Start 07/27/19 at 20:00 Iohexol (Omnipaque 350 Mg/ml) 100 ml 1X ONCE IV Last administered on 07/27/19at 20:50; Start 07/27/19 at 19:15; Stop 07/27/19 at 19:16; Status DC Info (CONTRAST GIVEN -- Rx MONITORING) 1 each PRN DAILY PRN MC SEE COMMENTS; Start 07/27/19 at 19:30; Stop 07/29/19 at 19:29 Furosemide (Lasix) 40 mg BID92 IVP Last administered on 07/28/19at 15:06; St art 07/28/19 at 09:00 Allergies Allergies: Coded Allergies: No Known Drug Allergies (Unverified , 07/27/19) ROS Review of System Negative for fever, chills, weight loss, chest pain, indigestion, hematochezia, melena, and dysuria. Positive for dyspnea. Full 14-point review of systems is negative. Physical Exam Physical Examination General: Well-developed, well-nourished black male, in no acute distress, somewhat disheveled HEENT: Normocephalic andatraumatic.Temporal arteriespulsatile and nontender. Neck: Supple without bruit, no meningismus Musculoskeletal: Stability:see neurologic. Gait exam:see neurologic. Tone:see neurologic.Strength:see neurologic. Neurological: Mental Status:orientation, memory, attention span/concentration, language, fund of knowledge: He knows the name of the hospital and not the date, has some trouble with naming and complex oral commands, speech is fluent. Cranial N erves:Pupils equal and reactive to light, extraocular movements areintact, visual wylie are full to confrontation. Facial sensation is normal. There is no facial asymmetry. Vestibulo-ocular reflex is intact. Palate elevates and tongue protrudes in midline. All other cranial related problems are negative except as mentioned before.Reflexes:2+ and symmetric with flexor plantar responses. Motor:5/5 strength with normal tone and bulk. Coordination:Finger-nose finger and rxlt-um-jzsa testing are normal. Rapid alternating movements and fine finger movements are intact. Gait:Apraxic. Sensory:Normal pinprick, vibration, light touch, proprioception. Vitals VITALS Vital Signs Date Time Temp Pulse Resp B/P (MAP) Pulse Ox O2 Delivery O2 Flow Rate FiO2 07/28/19 13:30 93 Nasal Cannula 3.0 07/28/19 07:00 96.9 95 18 99/54 (69) 96.9 Labs Labs Laboratory Tests Test 07/27/19 18:05 07/28/19 00:40 07/28/19 03:05 07/28/19 08:05 Blood Urea Nitrogen 28 mg/dL (8-26) 25 mg/dL (8-26) Creatinine 1.1 mg/dL (0.7-1.3) 0.8 mg/dL (0.7-1.3) Estimated GFR (Cockcroft-Gault) 77.5 112.0 Troponin I Quantitative 0.062 ng/mL (0.000-0.055) 0.039 ng/mL (0.000-0.055) 0.054 ng/mL (0.000-0.055) White Blood Count 2.9 x10^3/uL (4.0-11.0) Red Blood Count 4.98 x10^6/uL (4.30-5.70) Hemoglobin 16.2 g/dL (13.0-17.5) Hematocrit 50.1 % (39.0-53.0) Mean Corpuscular Volume 101 fL (79-100) Mean Corpuscular Hemoglobin 33 pg (25-35) Mean Corpuscular Hemoglobin Concent 32 g/dL (31-37) Red Cell Distribution Width 14.0 % (11.5-14.5) Platelet Count 159 x10^3/uL (140-400) Neutrophils (%) (Auto) 80 % (31-73) Lymphocytes (%) (Auto) 11 % (24-48) Monocytes (%) (Auto) 9 % (0-9) Eosinophils (%) (Auto) 0 % (0-3) Basophils (%) (Auto) 0 % (0-3) Neutrophils # (Auto) 2.3 x10^3/uL (1.8-7.7) Lymphocytes # (Auto) 0.3 x10^3/uL (1.0-4.8) Monocytes # (Auto) 0.2 x10^3/uL (0.0-1.1) Eosinophils # (Auto) 0.0 x10^3/uL (0.0-0.7) Basophils # (Auto) 0.0 x10^3/uL (0.0-0.2) Segmented Neutrophils % 49 % (35-66) Band Neutrophils % 17 % (0-9) Lymphocytes % 14 % (24-48) Atypical Lymphocytes % (Manual) 2 % (0-0) Monocytes % 17 % (0-10) Eosinophils % 1 % (0-5) Platelet Estimate Adequate (ADEQUATE) Large Platelets Few Giant Platelets Present Target Cells Present Sodium Level 144 mmol/L (136-145) Potassium Level 4.9 mmol/L (3.5-5.1) Chloride Level 100 mmol/L (98-107) Carbon Dioxide Level 41 mmol/L (21-32) Anion Gap 3 (6-14) BUN/Creatinine Ratio 31 (6-20) Glucose Level 170 mg/dL (70-99) Calcium Level 8.6 mg/dL (8.5-10.1) Magnesium Level 2.1 mg/dL (1.8-2.4) Total Bilirubin 0.3 mg/dL (0.2-1.0) Aspartate Amino Transf (AST/SGOT) 128 U/L (15-37) Alanine Aminotransferase (ALT/SGPT) 177 U/L (16-63) Alkaline Phosphatase 117 U/L (46-116) YZ-Fcu-V-Type Natriuretic Peptide 6693 pg/mL (0-449) Total Protein 7.2 g/dL (6.4-8.2) Albumin 2.9 g/dL (3.4-5.0) Albumin/Globulin Ratio 0.7 (1.0-1.7) Triglycerides Level 75 mg/dL (0-150) Cholesterol Level 165 mg/dL (0-200) LDL Cholesterol, Calculated 107 mg/dL (0-100) VLDL Cholesterol, Calculated 15 mg/dL (0-40) Non-HDL Cholesterol Calculated 122 mg/dL (0-129) HDL Cholesterol 43 mg/dL (40-60) Cholesterol/HDL Ratio 3.8 Vitamin B12 Level 1469 pg/mL (247-911) Thyroid Stimulating Hormone (TSH) 0.553 uIU/mL (0.358-3.74) Prothrombin Time 14.1 SEC (11.7-14.0) Prothromb Time International Ratio 1.1 (0.8-1.1) Test 07/28/19 10:30 07/28/19 11:51 Ammonia < 10 mcmol/L (11-34) Procalcitonin 0.23 ng/mL (0.00-0.10) Urine Collection Type Unknown Urine Color Yellow Urine Clarity Cloudy Urine pH 5.5 Urine Specific [place] 1.010 Urine Protein Negative mg/dL (NEG-TRACE) Urine Glucose (UA) Negative mg/dL (NEG) Urine Ketones (Stick) Negative mg/dL (NEG) Urine Blood Small (NEG) Urine Nitrite Negative (NEG) Urine Bilirubin Negative (NEG) Urine Urobilinogen Dipstick 0.2 mg/dL (0.2 mg/dL) Urine Leukocyte Esterase Negative (NEG) Urine RBC Occ /HPF (0-2) Urine WBC Occ /HPF (0-4) Urine Squamous Epithelial Cells Few /LPF Urine Bacteria Few /HPF (0-FEW) Laboratory Tests Test 07/27/19 18:05 07/28/19 00:40 07/28/19 03:05 07/28/19 08:05 Blood Urea Nitrogen 28 mg/dL (8-26) 25 mg/dL (8-26) Creatinine 1.1 mg/dL (0.7-1.3) 0.8 mg/dL (0.7-1.3) Estimated GFR (Cockcroft-Gault) 77.5 112.0 Troponin I Quantitative 0.062 ng/mL (0.000-0.055) 0.039 ng/mL (0.000-0.055) 0.054 ng/mL (0.000-0.055) White Blood Count 2.9 x10^3/uL (4.0-11.0) Red Blood Count 4.98 x10^6/uL (4.30-5.70) Hemoglobin 16.2 g/dL (13.0-17.5) Hematocrit 50.1 % (39.0-53.0) Mean Corpuscular Volume 101 fL (79-100) Mean Corpuscular Hemoglobin 33 pg (25-35) Mean Corpuscular Hemoglobin Concent 32 g/dL (31-37) Red Cell Distribution Width 14.0 % (11.5-14.5) Platelet Count 159 x10^3/uL (140-400) Neutrophils (%) (Auto) 80 % (31-73) Lymphocytes (%) (Auto) 11 % (24-48) Monocytes (%) (Auto) 9 % (0-9) Eosinophils (%) (Auto) 0 % (0-3) Basophils (%) (Auto) 0 % (0-3) Neutrophils # (Auto) 2.3 x10^3/uL (1.8-7.7) Lymphocytes # (Auto) 0.3 x10^3/uL (1.0-4.8) Monocytes # (Auto) 0.2 x10^3/uL (0.0-1.1) Eosinophils # (Auto) 0.0 x10^3/uL (0.0-0.7) Basophils # (Auto) 0.0 x10^3/uL (0.0-0.2) Segmented Neutrophils % 49 % (35-66) Band Neutrophils % 17 % (0-9) Lymphocytes % 14 % (24-48) Atypical Lymphocytes % (Manual) 2 % (0-0) Monocytes % 17 % (0-10) Eosinophils % 1 % (0-5) Platelet Estimate Adequate (ADEQUATE) Large Platelets Few Giant Platelets Present Target Cells Present Sodium Level 144 mmol/L (136-145) Potassium Level 4.9 mmol/L (3.5-5.1) Chloride Level 100 mmol/L (98-107) Carbon Dioxide Level 41 mmol/L (21-32) Anion Gap 3 (6-14) BUN/Creatinine Ratio 31 (6-20) Glucose Level 170 mg/dL (70-99) Calcium Level 8.6 mg/dL (8.5-10.1) Magnesium Level 2.1 mg/dL (1.8-2.4) Total Bilirubin 0.3 mg/dL (0.2-1.0) Aspartate Amino Transf (AST/SGOT) 128 U/L (15-37) Alanine Aminotransferase (ALT/SGPT) 177 U/L (16-63) Alkaline Phosphatase 117 U/L (46-116) AB-Hjs-K-Type Natriuretic Peptide 6693 pg/mL (0-449) Total Protein 7.2 g/dL (6.4-8.2) Albumin 2.9 g/dL (3.4-5.0) Albumin/Globulin Ratio 0.7 (1.0-1.7) Triglycerides Level 75 mg/dL (0-150) Cholesterol Level 165 mg/dL (0-200) LDL Cholesterol, Calculated 107 mg/dL (0-100) VLDL Cholesterol, Calculated 15 mg/dL (0-40) Non-HDL Cholesterol Calculated 122 mg/dL (0-129) HDL Cholesterol 43 mg/dL (40-60) Cholesterol/HDL Ratio 3.8 Vitamin B12 Level 1469 pg/mL (247-911) Thyroid Stimulating Hormone (TSH) 0.553 uIU/mL (0.358-3.74) Prothrombin Time 14.1 SEC (11.7-14.0) Prothromb Time International Ratio 1.1 (0.8-1.1) Test 07/28/19 10:30 07/28/19 11:51 Ammonia < 10 mcmol/L (11-34) Procalcitonin 0.23 ng/mL (0.00-0.10) Urine Collection Type Unknown Urine Color Yellow Urine Clarity Cloudy Urine pH 5.5 Urine Specific [place] 1.010 Urine Protein Negative mg/dL (NEG-TRACE) Urine Glucose (UA) Negative mg/dL (NEG) Urine Ketones (Stick) Negative mg/dL (NEG) Urine Blood Small (NEG) Urine Nitrite Negative (NEG) Urine Bilirubin Negative (NEG) Urine Urobilinogen Dipstick 0.2 mg/dL (0.2 mg/dL) Urine Leukocyte Esterase Negative (NEG) Urine RBC Occ /HPF (0-2) Urine WBC Occ /HPF (0-4) Urine Squamous Epithelial Cells Few /LPF Urine Bacteria Few /HPF (0-FEW) Images Images CT HEAD WO CONTRAST History: Weakness, word finding difficulty Comparison: None. Technique: Noncontrast CT imaging was performed of the head. Exposure: One or more of the following individualized dose reduction techniques were utilized for this examination: 1. Automated exposure control 2. Adjustment of the mA and/or kV according to patient size 3. Use of iterative reconstruction technique. Findings: There is some motion degradation. Mild hyperdensity of the basal ganglia greater on the left is likely due to mineralization, no convincing acute intracranial hemorrhage identified. There is scattered at least mild ill-defined low-density of the supratentorial parenchyma bilaterally. Focus of lower density of the right basal ganglia and cardona radiata is likely due to older lacunar infarct. There is no midline shift. Ventricular size is within normal limits. There is some deviation of the nasal septum to the right. There is left arjun bullosa. Mastoid air cells are aerated. Paranasal sinuses are overall aerated. Impression: 1. No convincing acute intracranial hemorrhage is identified, exam degraded by motion. 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 Other ill-defined low-density of the supratentorial parenchyma bilaterally is nonspecific, more commonly due to chronic microvascular ischemic disease. MRI would more accurately evaluate for acute infarct. Assessment/Plan Assessment/Plan Impression: I agree, he does have some aphasia. CT of the head was negative and examination is nonfocal. I wonder about frontal temporal dementia, semantic type, or a v ariation of Alzheimer's disease. Of course this could all be due to metabolic issues including his respiratory insufficiency. Recommendations: Brain MRI Speech therapy consult Physical and occupational therapy, already consulted [facility] had usual laboratory studies for reversible causes of dementia, I will add on a sedimentation rate. I will consider a trial of donepezil, and, later, memantine. Thank you for letting me help with the patient's care. BARBIE ELISE MD Jul 28, 2019 15:42
--- NOTE | 2019-07-28 15:59 | CARD ---
MR#: [id number] Date of Study: 07/28/2019 Ordering Physician: MICHELE RIVERA, Referring Physician: MICHELE RIVERA, Tech: Madisyn Stephenson APPROVED REPORT EXAM: Two-dimensional and M-mode echocardiogram with Doppler and color Doppler. Other Information Quality : AverageHR: 102bpm Technically limited study due to Patient coughing INDICATION Congestive Heart Failure 2D DIMENSIONS RVDd4.0 (2.9-3.5cm)Left Atrium(2D)2.7 (1.6-4.0cm) IVSd0.9 (0.7-1.1cm)Aortic Root(2D)3.7 (2.0-3.7cm) LVDd3.4 (3.9-5.9cm)LVOT Diameter1.9 (1.8-2.4cm) PWd0.8 (0.7-1.1cm)LVDs2.0 (2.5-4.0cm) FS (%) 40.4 %SV34.9 ml LVEF(%)72.3 (>50%) Aortic Valve AoV Peak Davonte.108.2cm/sAoV VTI19.1cm AO Peak GR.4.7mmHgLVOT Peak Davonte.75.3cm/s LVOT VTI 15.22cmAO Mean GR.3mmHg OWEN (VMAX)1.35al9BKL (VTI)2.33cm2 Mitral Valve MV E Lmdgrspb10.7cm/sMV E Peak Gr.45mmHg MV DECEL [id number] A Qwrouobf65.2cm/s MV E Mean Gr.2mmHgMV [id number] E/A Ratio0.7MVA (PHT)3.95cm2 TDI E/Lateral E'6.8E/Medial E'9.6 Pulmonary Valve PV Peak Ciyqcqls80.1cm/sPV Peak Grad.1mmHg Tricuspid Valve TR P. [id number]/sRAP [id number] TR Peak Gr.88doTrCXZO31ypDj Pulmonary Vein S1 Emhwgzkq34.0cm/sD2 Ixdpbipx58.5cm/s PVa [id number] LEFT VENTRICLE The left ventricle is normal size. There is normal left ventricular wall thickness. The left ventricu lar systolic function is normal and the ejection fraction is within normal range. The Ejection Fracti on is 55-60%. There is normal LV segmental wall motion. Transmitral Doppler flow pattern is Grade I-a bnormal relaxation pattern. RIGHT VENTRICLE The right ventricle is moderately to severely dilated. There is normal right ventricular wall thickne ss. RV Systolic function is mildly to moderately reduced. ATRIA The left atrium size is normal. The right atrium is mildly to moderately dilated. The interatrial sep isaac is intact with no evidence for an atrial septal defect or patent foramen ovale as noted on 2-D or Doppler imaging. AORTIC VALVE The aortic valve is normal in structure and function. Doppler and Color Flow revealed no significant aortic regurgitation. There is no significant aortic valvular stenosis. MITRAL VALVE The mitral valve is thickened but opens well. There is no evidence of mitral valve prolapse. There is no mitral valve stenosis. Doppler and Color-flow revealed trace mitral regurgitation. TRICUSPID VALVE The tricuspid valve is normal in structure and function. Doppler and Color Flow revealed trace tricus pid regurgitation with an estimated PAP orf 57 mmHg. There is moderate pulmonary hypertension. There is no tricuspid valve prolapse or vegetation. There is no tricuspid valve stenosis. PULMONIC VALVE The pulmonic valve is not well visualized. Doppler and Color Flow revealed trace pulmonic valvular re gurgitation. There is no pulmonic valvular stenosis. GREAT VESSELS The aortic root is normal in size. The IVC is normal in size and collapses >50% with inspiration. PERICARDIAL EFFUSION There is no evidence of significant pericardial effusion. Critical Notification Critical Value: No <Conclusion> The left ventricular systolic function is normal and the ejection fraction is within normal range. Th e Ejection Fraction is 55-60%. There is normal LV segmental wall motion. The right ventricle is moderately to severely dilated. RV Systolic function is mildly to moderately reduced. Doppler and Color Flow revealed trace tricuspid regurgitation with an estimated PAP orf 57 mmHg. Ther e is moderate pulmonary hypertension. Signed by : Barron Smith, Electronically Approved : 07/28/2019 15:59:00
--- NOTE | 2019-07-28 17:36 | CONS ---
DATE OF CONSULTATION: 07/28/2019 ATTENDING PHYSICIAN: Brenden Canas MD REASON FOR CONSULTATION: The patient seen in pulmonary consultation at the request of Dr. Canas for increasing shortness of air. HISTORY OF PRESENT ILLNESS: The patient is an 84-year-old that does not have a primary care doctor, has not been seen by a physician for a very long time. 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 increasing shortness of air for the past 2 months, worsening over the last 2 days. The patient was found to be hypoxic at 86% despite 3 liters of oxygen supplementation. He underwent a chest x-ray revealing bilateral pulmonary infiltrates and some apical emphysematous changes. The patient was transferred to our hospital for further evaluation and management. He underwent a CT angiogram, which I personally reviewed. There was no evidence of pulmonary emboli. There was severe centrilobular emphysema with mild nodular infiltrate in the bases suggestive of possibility of an atypical infection versus chronic changes. He also had bilateral hilar lymphadenopathy and right ventricular enlargement, suggestive of pulmonary hypertension. He had a head CT, which revealed no acute intracranial hemorrhage. PAST MEDICAL HISTORY: Otherwise unremarkable. The patient was taking no medications at home. He continues to smoke. PAST SURGICAL HISTORY: No recent surgeries. ALLERGIES: No known drug allergies. REVIEW OF SYSTEMS: CONSTITUTIONAL: No fever or chills. EYES: No change in visual acuity. HEENT: No nasal congestion or sore throat. PULMONARY: As indicated above. CARDIOVASCULAR: No chest pain. No pressure. GASTROINTESTINAL: No nausea, vomiting, diarrhea. GENITOURINARY: No dysuria or frequency. MUSCULOSKELETAL: No localized muscle aches or joint pains. SKIN: No new skin rashes. NEUROLOGIC: No headaches, diplopia or blurred vision. CURRENT MEDICATIONS: List was reviewed. PHYSICAL EXAMINATION: GENERAL: An 84-year-old appearing individual in no respiratory distress. HEENT: Eyes, the sclerae were nonicteric. NECK: Jugular venous distention was not elevated. No lymphadenopathy. CHEST: Full expansion. LUNGS: Crackles in the bases. No wheezes. CARDIOVASCULAR: Regular rate and rhythm with S1, S2, no S3. ABDOMEN: Soft, nontender, nondistended. EXTREMITIES: No clubbing, cyanosis or edema. NEUROLOGICAL: The patient was awake, alert, following commands. A detailed neuro exam was not performed. LABORATORY DATA: White count was 2.9, hemoglobin and hematocrit were noted. Electrolytes were noted. BUN and creatinine were normal. Liver chemistries were elevated. BNP was elevated. Albumin was low. CT chest as indicated above. IMPRESSION: 1. Progressive dyspnea secondary to acute exacerbation of chronic obstructive pulmonary disease. 2. Abnormal CT chest revealing centrilobular emphysema and mild nodular infiltrates in the bases. 3. Secondary pulmonary hypertension. 4. Tobacco dependent. 5. Bilateral hilar adenopathy, suspect reactive. PLAN: 1. We will continue support with steroids. 2. Add doxycycline for atypical infection. 3. Repeat CT chest in 8 weeks. 4. The patient instructed on the importance of discontinuing tobacco use. 5. A 6-minute walk prior to discharge. 6. Outpatient pulmonary function testing. 7. Continue bronchodilators. I do appreciate the privilege in sharing in the patient's care. COLBY MOSELEY MD DR: KIM/kelton JOB#: [id number] / [id number]
[2019-07-28 19:58] VITALS: BP 104/60
[2019-07-28 23:22] VITALS: BP 109/63
[2019-07-29 00:08] LABS: HEMOGLOBIN A1C 6.4 % (4.8-5.6)
[2019-07-29 03:42] VITALS: BP 113/65
[2019-07-29] MEDS: IPRATRPIUM/ALBUTEROL 0.5/2.5MG 3 ML NEBU. NEB SCH ×6 (04:05→23:30)
[2019-07-29] MEDS: methylPREDNISolone SOD SUCC PF 40 MG/ML VIAL. IV SCH ×3 (06:28→22:03)
[2019-07-29 07:00] VITALS: BP 115/64
[2019-07-29] MEDS: BUDESONIDE 0.5 MG/2 ML NEBU. NEB SCH ×2 (07:30→19:48)
[2019-07-29 08:13] LABS: HEMATOCRIT 48.4 % (39.0-53.0); HEMOGLOBIN 15.6 g/dL (13.0-17.5); RED BLOOD COUNT 4.75 x10^6/uL (4.30-5.70); RED CELL DISTRIBUTION WIDTH 13.7 % (11.5-14.5); WHITE BLOOD COUNT 3.1 x10^3/uL (4.0-11.0)
[2019-07-29 08:21] LABS: ALBUMIN 2.9 g/dL (3.4-5.0); ALBUMIN/GLOBULIN RATIO 0.6 (1.0-1.7); ALK PHOS 103 U/L (46-116); ALT (SGPT) 169 U/L (16-63); AST (SGOT) 86 U/L (15-37); BLOOD UREA NITROGEN 34 mg/dL (8-26); BUN/CREATININE RATIO 38 (6-20); CALCIUM 8.9 mg/dL (8.5-10.1); CARBON DIOXIDE > 45 mmol/L (21-32); CHLORIDE 98 mmol/L (98-107); CREATININE 0.9 mg/dL (0.7-1.3); GFR 97.8; GLUCOSE 146 mg/dL (70-99); POTASSIUM 4.9 mmol/L (3.5-5.1); SODIUM 142 mmol/L (136-145); TOTAL BILIRUBIN 0.3 mg/dL (0.2-1.0); TOTAL PROTEIN 7.7 g/dL (6.4-8.2)
[2019-07-29] MEDS ORDERED: FUROSEMIDE 40 MG/4 ML VIAL. IVP SCH (09:00)
--- NOTE | 2019-07-29 09:15 | PDOC ---
PULMONARY PROGRESS NOTES Subjective PT FEELS BETTER LESS SOA AND COUGH Vitals Vital Signs Date Time Temp Pulse Resp B/P (MAP) Pulse Ox O2 Delivery O2 Flow Rate FiO2 07/29/19 07:30 94 Nasal Cannula 3.0 07/29/19 07:00 97.6 105 20 115/64 (81) 97.6 ROS: No Nausea, No Chest Pain, No Abdominal Pain, No Increase Cough General: Alert Lungs: Wheezing, Crackles Cardiovascular: S1, S2 Abdomen: Soft Neuro Exam: Alert Extremities: No Edema Skin: Warm Labs Laboratory Tests Test 07/27/19 18:05 07/28/19 00:40 07/28/19 03:05 07/28/19 08:05 Blood Urea Nitrogen 28 mg/dL (8-26) 25 mg/dL (8-26) Creatinine 1.1 mg/dL (0.7-1.3) 0.8 mg/dL (0.7-1.3) Estimated GFR (Cockcroft-Gault) 77.5 112.0 Troponin I Quantitative 0.062 ng/mL (0.000-0.055) 0.039 ng/mL (0.000-0.055) 0.054 ng/mL (0.000-0.055) White Blood Count 2.9 x10^3/uL (4.0-11.0) Red Blood Count 4.98 x10^6/uL (4.30-5.70) Hemoglobin 16.2 g/dL (13.0-17.5) Hematocrit 50.1 % (39.0-53.0) Mean Corpuscular Volume 101 fL (79-100) Mean Corpuscular Hemoglobin 33 pg (25-35) Mean Corpuscular Hemoglobin Concent 32 g/dL (31-37) Red Cell Distribution Width 14.0 % (11.5-14.5) Platelet Count 159 x10^3/uL (140-400) Neutrophils (%) (Auto) 80 % (31-73) Lymphocytes (%) (Auto) 11 % (24-48) Monocytes (%) (Auto) 9 % (0-9) Eosinophils (%) (Auto) 0 % (0-3) Basophils (%) (Auto) 0 % (0-3) Neutrophils # (Auto) 2.3 x10^3/uL (1.8-7.7) Lymphocytes # (Auto) 0.3 x10^3/uL (1.0-4.8) Monocytes # (Auto) 0.2 x10^3/uL (0.0-1.1) Eosinophils # (Auto) 0.0 x10^3/uL (0.0-0.7) Basophils # (Auto) 0.0 x10^3/uL (0.0-0.2) Segmented Neutrophils % 49 % (35-66) Band Neutrophils % 17 % (0-9) Lymphocytes % 14 % (24-48) Atypical Lymphocytes % (Manual) 2 % (0-0) Monocytes % 17 % (0-10) Eosinophils % 1 % (0-5) Platelet Estimate Adequate (ADEQUATE) Large Platelets Few Giant Platelets Present Target Cells Present Sodium Level 144 mmol/L (136-145) Potassium Level 4.9 mmol/L (3.5-5.1) Chloride Level 100 mmol/L (98-107) Carbon Dioxide Level 41 mmol/L (21-32) Anion Gap 3 (6-14) BUN/Creatinine Ratio 31 (6-20) Glucose Level 170 mg/dL (70-99) Hemoglobin A1c 6.4 % (4.8-5.6) Calcium Level 8.6 mg/dL (8.5-10.1) Magnesium Level 2.1 mg/dL (1.8-2.4) Total Bilirubin 0.3 mg/dL (0.2-1.0) Aspartate Amino Transf (AST/SGOT) 128 U/L (15-37) Alanine Aminotransferase (ALT/SGPT) 177 U/L (16-63) Alkaline Phosphatase 117 U/L (46-116) RH-Uyz-H-Type Natriuretic Peptide 6693 pg/mL (0-449) Total Protein 7.2 g/dL (6.4-8.2) Albumin 2.9 g/dL (3.4-5.0) Albumin/Globulin Ratio 0.7 (1.0-1.7) Triglycerides Level 75 mg/dL (0-150) Cholesterol Level 165 mg/dL (0-200) LDL Cholesterol, Calculated 107 mg/dL (0-100) VLDL Cholesterol, Calculated 15 mg/dL (0-40) Non-HDL Cholesterol Calculated 122 mg/dL (0-129) HDL Cholesterol 43 mg/dL (40-60) Cholesterol/HDL Ratio 3.8 Vitamin B12 Level 1469 pg/mL (247-911) Thyroid Stimulating Hormone (TSH) 0.553 uIU/mL (0.358-3.74) Prothrombin Time 14.1 SEC (11.7-14.0) Prothromb Time International Ratio 1.1 (0.8-1.1) Test 07/28/19 10:30 07/28/19 11:51 07/29/19 03:40 Ammonia < 10 mcmol/L (11-34) Procalcitonin 0.23 ng/mL (0.00-0.10) Urine Collection Type Unknown Urine Color Yellow Urine Clarity Cloudy Urine pH 5.5 Urine Specific [place] 1.010 Urine Protein Negative mg/dL (NEG-TRACE) Urine Glucose (UA) Negative mg/dL (NEG) Urine Ketones (Stick) Negative mg/dL (NEG) Urine Blood Small (NEG) Urine Nitrite Negative (NEG) Urine Bilirubin Negative (NEG) Urine Urobilinogen Dipstick 0.2 mg/dL (0.2 mg/dL) Urine Leukocyte Esterase Negative (NEG) Urine RBC Occ /HPF (0-2) Urine WBC Occ /HPF (0-4) Urine Squamous Epithelial Cells Few /LPF Urine Bacteria Few /HPF (0-FEW) White Blood Count 3.1 x10^3/uL (4.0-11.0) Red Blood Count 4.75 x10^6/uL (4.30-5.70) Hemoglobin 15.6 g/dL (13.0-17.5) Hematocrit 48.4 % (39.0-53.0) Mean Corpuscular Volume 102 fL (79-100) Mean Corpuscular Hemoglobin 33 pg (25-35) Mean Corpuscular Hemoglobin Concent 32 g/dL (31-37) Red Cell Distribution Width 13.7 % (11.5-14.5) Platelet Count 164 x10^3/uL (140-400) Erythrocyte Sedimentation Rate 20 (0-15) Sodium Level 142 mmol/L (136-145) Potassium Level 4.9 mmol/L (3.5-5.1) Chloride Level 98 mmol/L (98-107) Carbon Dioxide Level > 45 mmol/L (21-32) Anion Gap (6-14) Blood Urea Nitrogen 34 mg/dL (8-26) Creatinine 0.9 mg/dL (0.7-1.3) Estimated GFR (Cockcroft-Gault) 97.8 BUN/Creatinine Ratio 38 (6-20) Glucose Level 146 mg/dL (70-99) Calcium Level 8.9 mg/dL (8.5-10.1) Total Bilirubin 0.3 mg/dL (0.2-1.0) Aspartate Amino Transf (AST/SGOT) 86 U/L (15-37) Alanine Aminotransferase (ALT/SGPT) 169 U/L (16-63) Alkaline Phosphatase 103 U/L (46-116) Total Protein 7.7 g/dL (6.4-8.2) Albumin 2.9 g/dL (3.4-5.0) Albumin/Globulin Ratio 0.6 (1.0-1.7) Laboratory Tests Test 07/28/19 10:30 07/28/19 11:51 07/29/19 03:40 Ammonia < 10 mcmol/L (11-34) Procalcitonin 0.23 ng/mL (0.00-0.10) Urine Collection Type Unknown Urine Color Yellow Urine Clarity Cloudy Urine pH 5.5 Urine Specific [place] 1.010 Urine Protein Negative mg/dL (NEG-TRACE) Urine Glucose (UA) Negative mg/dL (NEG) Urine Ketones (Stick) Negative mg/dL (NEG) Urine Blood Small (NEG) Urine Nitrite Negative (NEG) Urine Bilirubin Negative (NEG) Urine Urobilinogen Dipstick 0.2 mg/dL (0.2 mg/dL) Urine Leukocyte Esterase Negative (NEG) Urine RBC Occ /HPF (0-2) Urine WBC Occ /HPF (0-4) Urine Squamous Epithelial Cells Few /LPF Urine Bacteria Few /HPF (0-FEW) White Blood Count 3.1 x10^3/uL (4.0-11.0) Red Blood Count 4.75 x10^6/uL (4.30-5.70) Hemoglobin 15.6 g/dL (13.0-17.5) Hematocrit 48.4 % (39.0-53.0) Mean Corpuscular Volume 102 fL (79-100) Mean Corpuscular Hemoglobin 33 pg (25-35) Mean Corpuscular Hemoglobin Concent 32 g/dL (31-37) Red Cell Distribution Width 13.7 % (11.5-14.5) Platelet Count 164 x10^3/uL (140-400) Erythrocyte Sedimentation Rate 20 (0-15) Sodium Level 142 mmol/L (136-145) Potassium Level 4.9 mmol/L (3.5-5.1) Chloride Level 98 mmol/L (98-107) Carbon Dioxide Level > 45 mmol/L (21-32) Anion Gap (6-14) Blood Urea Nitrogen 34 mg/dL (8-26) Creatinine 0.9 mg/dL (0.7-1.3) Estimated GFR (Cockcroft-Gault) 97.8 BUN/Creatinine Ratio 38 (6-20) Glucose Level 146 mg/dL (70-99) Calcium Level 8.9 mg/dL (8.5-10.1) Total Bilirubin 0.3 mg/dL (0.2-1.0) Aspartate Amino Transf (AST/SGOT) 86 U/L (15-37) Alanine Aminotransferase (ALT/SGPT) 169 U/L (16-63) Alkaline Phosphatase 103 U/L (46-116) Total Protein 7.7 g/dL (6.4-8.2) Albumin 2.9 g/dL (3.4-5.0) Albumin/Globulin Ratio 0.6 (1.0-1.7) Impression . IMPRESSION: 1. Progressive dyspnea secondary to acute exacerbation of chronic obstructive pulmonary disease. 2. Abnormal CT chest revealing centrilobular emphysema and mild nodular infiltrates in the bases. 3. Secondary pulmonary hypertension. 4. Tobacco dependent. 5. Bilateral hilar adenopathy, suspect reactive. Plan . SPOKE WITH WILL CONTINUE SUPPORT SEE BELOW 1. We will continue support with steroids. 2. Add doxycycline for atypical infection. 3. Repeat CT chest in 8 weeks. 4. The patient instructed on the importance of discontinuing tobacco use. 5. A 6-minute walk prior to discharge. 6. Outpatient pulmonary function testing. 7. Continue bronchodilators. COLBY MOSELEY MD Jul 29, 2019 09:15
[2019-07-29] MEDS: ENOXAPARIN 40 MG/0.4 ML SYRINGE. SQ SCH (09:37)
--- NOTE | 2019-07-29 10:50 | PDOC ---
PROGRESS NOTES Assessment Possible dementia, he is better today, this may all be metabolic. Consider frontal temporal dementia, semantic type, or a variation of Alzheimer's disease. Slightly elevated sedimentation rate, not clinically relevant Plan Await brain MRI Speech therapy consult Physical and occupational therapy, already consulted Follow-up in my office in 6-8 weeks, I will consider a trial of donepezil, and, later, memantine. I discussed with patient's . Subjective no complaints Objective Vital Signs Date Time Temp Pulse Resp B/P (MAP) Pulse Ox O2 Delivery O2 Flow Rate FiO2 07/29/19 08:00 Nasal Cannula 3.0 07/29/19 07:30 94 07/29/19 07:00 97.6 105 20 115/64 (81) 97.6 Intake and Output 07/29/19 07:00 Intake Total 450 ml Output Total 975 ml Balance -525 ml Intake Oral 450 ml Output Urine Total 975 ml # Voids 2 PHYSICAL EXAM Alert. Oriented to place and person, one day off on the date, less word finding problems today. PERRL. EOMI. CN: no focal findings. Muscle tone: normal. Muscle strength: 5/5 DTR: 2+ Plantar reflex: flexor Gait: not examined in bed. Sensory exam: no abnormal findings. No cerebellar signs elicited. Review of Relevant I have reviewed the following items paris (where applicable) has been applied. Labs Laboratory Tests Test 07/27/19 18:05 07/28/19 00:40 07/28/19 03:05 07/28/19 08:05 Blood Urea Nitrogen 28 mg/dL (8-26) 25 mg/dL (8-26) Creatinine 1.1 mg/dL (0.7-1.3) 0.8 mg/dL (0.7-1.3) Estimated GFR (Cockcroft-Gault) 77.5 112.0 Troponin I Quantitative 0.062 ng/mL (0.000-0.055) 0.039 ng/mL (0.000-0.055) 0.054 ng/mL (0.000-0.055) White Blood Count 2.9 x10^3/uL (4.0-11.0) Red Blood Count 4.98 x10^6/uL (4.30-5.70) Hemoglobin 16.2 g/dL (13.0-17.5) Hematocrit 50.1 % (39.0-53.0) Mean Corpuscular Volume 101 fL (79-100) Mean Corpuscular Hemoglobin 33 pg (25-35) Mean Corpuscular Hemoglobin Concent 32 g/dL (31-37) Red Cell Distribution Width 14.0 % (11.5-14.5) Platelet Count 159 x10^3/uL (140-400) Neutrophils (%) (Auto) 80 % (31-73) Lymphocytes (%) (Auto) 11 % (24-48) Monocytes (%) (Auto) 9 % (0-9) Eosinophils (%) (Auto) 0 % (0-3) Basophils (%) (Auto) 0 % (0-3) Neutrophils # (Auto) 2.3 x10^3/uL (1.8-7.7) Lymphocytes # (Auto) 0.3 x10^3/uL (1.0-4.8) Monocytes # (Auto) 0.2 x10^3/uL (0.0-1.1) Eosinophils # (Auto) 0.0 x10^3/uL (0.0-0.7) Basophils # (Auto) 0.0 x10^3/uL (0.0-0.2) Segmented Neutrophils % 49 % (35-66) Band Neutrophils % 17 % (0-9) Lymphocytes % 14 % (24-48) Atypical Lymphocytes % (Manual) 2 % (0-0) Monocytes % 17 % (0-10) Eosinophils % 1 % (0-5) Platelet Estimate Adequate (ADEQUATE) Large Platelets Few Giant Platelets Present Target Cells Present Sodium Level 144 mmol/L (136-145) Potassium Level 4.9 mmol/L (3.5-5.1) Chloride Level 100 mmol/L (98-107) Carbon Dioxide Level 41 mmol/L (21-32) Anion Gap 3 (6-14) BUN/Creatinine Ratio 31 (6-20) Glucose Level 170 mg/dL (70-99) Hemoglobin A1c 6.4 % (4.8-5.6) Calcium Level 8.6 mg/dL (8.5-10.1) Magnesium Level 2.1 mg/dL (1.8-2.4) Total Bilirubin 0.3 mg/dL (0.2-1.0) Aspartate Amino Transf (AST/SGOT) 128 U/L (15-37) Alanine Aminotransferase (ALT/SGPT) 177 U/L (16-63) Alkaline Phosphatase 117 U/L (46-116) HO-Qga-X-Type Natriuretic Peptide 6693 pg/mL (0-449) Total Protein 7.2 g/dL (6.4-8.2) Albumin 2.9 g/dL (3.4-5.0) Albumin/Globulin Ratio 0.7 (1.0-1.7) Triglycerides Level 75 mg/dL (0-150) Cholesterol Level 165 mg/dL (0-200) LDL Cholesterol, Calculated 107 mg/dL (0-100) VLDL Cholesterol, Calculated 15 mg/dL (0-40) Non-HDL Cholesterol Calculated 122 mg/dL (0-129) HDL Cholesterol 43 mg/dL (40-60) Cholesterol/HDL Ratio 3.8 Vitamin B12 Level 1469 pg/mL (247-911) Thyroid Stimulating Hormone (TSH) 0.553 uIU/mL (0.358-3.74) Prothrombin Time 14.1 SEC (11.7-14.0) Prothromb Time International Ratio 1.1 (0.8-1.1) Test 07/28/19 10:30 07/28/19 11:51 07/29/19 03:40 Ammonia < 10 mcmol/L (11-34) Procalcitonin 0.23 ng/mL (0.00-0.10) Urine Collection Type Unknown Urine Color Yellow Urine Clarity Cloudy Urine pH 5.5 Urine Specific [place] 1.010 Urine Protein Negative mg/dL (NEG-TRACE) Urine Glucose (UA) Negative mg/dL (NEG) Urine Ketones (Stick) Negative mg/dL (NEG) Urine Blood Small (NEG) Urine Nitrite Negative (NEG) Urine Bilirubin Negative (NEG) Urine Urobilinogen Dipstick 0.2 mg/dL (0.2 mg/dL) Urine Leukocyte Esterase Negative (NEG) Urine RBC Occ /HPF (0-2) Urine WBC Occ /HPF (0-4) Urine Squamous Epithelial Cells Few /LPF Urine Bacteria Few /HPF (0-FEW) White Blood Count 3.1 x10^3/uL (4.0-11.0) Red Blood Count 4.75 x10^6/uL (4.30-5.70) Hemoglobin 15.6 g/dL (13.0-17.5) Hematocrit 48.4 % (39.0-53.0) Mean Corpuscular Volume 102 fL (79-100) Mean Corpuscular Hemoglobin 33 pg (25-35) Mean Corpuscular Hemoglobin Concent 32 g/dL (31-37) Red Cell Distribution Width 13.7 % (11.5-14.5) Platelet Count 164 x10^3/uL (140-400) Erythrocyte Sedimentation Rate 20 (0-15) Sodium Level 142 mmol/L (136-145) Potassium Level 4.9 mmol/L (3.5-5.1) Chloride Level 98 mmol/L (98-107) Carbon Dioxide Level > 45 mmol/L (21-32) Anion Gap (6-14) Blood Urea Nitrogen 34 mg/dL (8-26) Creatinine 0.9 mg/dL (0.7-1.3) Estimated GFR (Cockcroft-Gault) 97.8 BUN/Creatinine Ratio 38 (6-20) Glucose Level 146 mg/dL (70-99) Calcium Level 8.9 mg/dL (8.5-10.1) Total Bilirubin 0.3 mg/dL (0.2-1.0) Aspartate Amino Transf (AST/SGOT) 86 U/L (15-37) Alanine Aminotransferase (ALT/SGPT) 169 U/L (16-63) Alkaline Phosphatase 103 U/L (46-116) Total Protein 7.7 g/dL (6.4-8.2) Albumin 2.9 g/dL (3.4-5.0) Albumin/Globulin Ratio 0.6 (1.0-1.7) Laboratory Tests Test 07/28/19 11:51 07/29/19 03:40 Urine Collection Type Unknown Urine Color Yellow Urine Clarity Cloudy Urine pH 5.5 Urine Specific [place] 1.010 Urine Protein Negative mg/dL (NEG-TRACE) Urine Glucose (UA) Negative mg/dL (NEG) Urine Ketones (Stick) Negative mg/dL (NEG) Urine Blood Small (NEG) Urine Nitrite Negative (NEG) Urine Bilirubin Negative (NEG) Urine Urobilinogen Dipstick 0.2 mg/dL (0.2 mg/dL) Urine Leukocyte Esterase Negative (NEG) Urine RBC Occ /HPF (0-2) Urine WBC Occ /HPF (0-4) Urine Squamous Epithelial Cells Few /LPF Urine Bacteria Few /HPF (0-FEW) White Blood Count 3.1 x10^3/uL (4.0-11.0) Red Blood Count 4.75 x10^6/uL (4.30-5.70) Hemoglobin 15.6 g/dL (13.0-17.5) Hematocrit 48.4 % (39.0-53.0) Mean Corpuscular Volume 102 fL (79-100) Mean Corpuscular Hemoglobin 33 pg (25-35) Mean Corpuscular Hemoglobin Concent 32 g/dL (31-37) Red Cell Distribution Width 13.7 % (11.5-14.5) Platelet Count 164 x10^3/uL (140-400) Erythrocyte Sedimentation Rate 20 (0-15) Sodium Level 142 mmol/L (136-145) Potassium Level 4.9 mmol/L (3.5-5.1) Chloride Level 98 mmol/L (98-107) Carbon Dioxide Level > 45 mmol/L (21-32) Anion Gap (6-14) Blood Urea Nitrogen 34 mg/dL (8-26) Creatinine 0.9 mg/dL (0.7-1.3) Estimated GFR (Cockcroft-Gault) 97.8 BUN/Creatinine Ratio 38 (6-20) Glucose Level 146 mg/dL (70-99) Calcium Level 8.9 mg/dL (8.5-10.1) Total Bilirubin 0.3 mg/dL (0.2-1.0) Aspartate Amino Transf (AST/SGOT) 86 U/L (15-37) Alanine Aminotransferase (ALT/SGPT) 169 U/L (16-63) Alkaline Phosphatase 103 U/L (46-116) Total Protein 7.7 g/dL (6.4-8.2) Albumin 2.9 g/dL (3.4-5.0) Albumin/Globulin Ratio 0.6 (1.0-1.7) Medications Current Medications Ondansetron HCl (Zofran) 4 mg PRN Q4HRS PRN IV NAUSEA/VOMITING; Start 07/27/19 at 16:30 Acetaminophen (Tylenol) 650 mg PRN Q4HRS PRN PO TEMP OVER 100.4F OR MILD PAIN; Start 07/27/19 at 16:30 Docusate Sodium (Colace) 100 mg PRN BID PRN PO CONSTIPATION; Start 07/27/19 at 16:30 Albuterol Sulfate (Ventolin Neb Soln) 2.5 mg PRN Q4HRS PRN NEB SHORTNESS OF BREATH; Start 07/27/19 at 16:30 Albuterol/ Ipratropium (Duoneb) 3 ml Q4H NEB Last administered on 07/29/19at 07:30; Start 07/27/19 at 16:30 Enoxaparin Sodium (Lovenox 40mg Syringe) 40 mg DAILY SQ Last administered on 07/29/19at 09:37; Start 07/28/19 at 09:00 Methylprednisolone Sodium Succinate (SOLU-Medrol 40MG VIAL) 40 mg Q8HRS IV Last administered on 07/29/19at 06:28; Start 07/27/19 at 22:00 Buspirone HCl (Buspar) 5 mg PRN TID PRN PO anxiety; Start 07/27/19 at 16:30 Trazodone HCl (Desyrel) 50 mg PRN QHS PRN PO INSOMNIA; Start 07/27/19 at 16:30 Budesonide (Pulmicort) 0.5 mg RTBID NEB Last administered on 07/29/19at 07:30; Start 07/27/19 at 20:00 Iohexol (Omnipaque 350 Mg/ml) 100 ml 1X ONCE IV Last administered on 9at 20:50; Start 07/27/19 at 19:15; Stop 07/27/19 at 19:16; Status DC Info (CONTRAST GIVEN -- Rx MONITORING) 1 each PRN DAILY PRN MC SEE COMMENTS; Start 07/27/19 at 19:30; Stop 07/29/19 at 19:29 Furosemide (Lasix) 40 mg BID92 IVP Last administered on 07/28/19at 15:06; Start 07/28/19 at 09:00; Stop 07/28/19 at 16:16; Status DC Furosemide (Lasix) 40 mg DAILY IVP Last administered on 07/29/19at 09:37; Start 07/29/19 at 09:00 Vitals/I & O Vital Sign - Last 24 Hours 10/07/28/19 07/28/19 07/28/19 13:30 15:00 16:30 19:58 Temp 98.1 98.4 98.1 98.4 Pulse 108 111 Resp 18 24 B/P (MAP) 98/53 (68) 104/60 (75) Pulse Ox 93 94 93 O2 Delivery Nasal Cannula Nasal Cannula Nasal Cannula Nasal Cannula O2 Flow Rate 3.0 3.0 3.0 3.5 07/28/19 07/28/19 07/28/19 07/28/19 20:00 20:00 23:20 23:22 Temp 98.3 98.3 Pulse 111 Resp 24 B/P (MAP) 109/63 (78) Pulse Ox 94 92 94 O2 Delivery Nasal Cannula Nasal Cannula Nasal Cannula RT Treatment O2 Flow Rate 3.0 3.0 3.0 3.0 07/29/19 07/29/19 07/29/19 07/29/19 03:42 04:05 07:00 07:30 Temp 97.5 97.6 97.5 97.6 Pulse 96 105 Resp 16 20 B/P (MAP) 113/65 (81) 115/64 (81) Pulse Ox 97 92 94 O2 Delivery Nasal Cannula Nasal Cannula Nasal Cannula Nasal Cannula O2 Flow Rate 4.0 3.0 3.5 3.0 07/29/19 08:00 O2 Delivery Nasal Cannula O2 Flow Rate 3.0 Intake and Output 07/28/19 07/28/19 07/29/19 15:00 23:00 07:00 Intake Total 200 ml 200 ml 50 ml Output Total 400 ml 475 ml 100 ml Balance -200 ml -275 ml -50 ml BARBIE ELISE MD Jul 29, 2019 10:50
[2019-07-29 11:00] VITALS: BP 111/69
--- NOTE | 2019-07-29 11:22 | NUR ---
SS following up with discharge planning. Pt and pt's family requesting referral be phoned and faxed to [facility], ; fax [phone]. SS phoned and faxed referral. SS will await acceptance decision and insurance determination and will proceed accordingly with discharge planning.
--- NOTE | 2019-07-29 11:58 | PDOC ---
MICHELE RIVERA SHOWCASE TRIMMER 07/29/19 1158: CARDIO Progress Notes Date and Time Date of Service 07/29/2019 Time of Evaluation 1130 Subjective Subjective: No Chest Pain, No shortness of breath, No Palpitations Vitals Vitals Vital Signs Date Time Temp Pulse Resp B/P (MAP) Pulse Ox O2 Delivery O2 Flow Rate FiO2 07/29/19 08:00 Nasal Cannula 3.0 07/29/19 07:30 94 07/29/19 07:00 97.6 105 20 115/64 (81) 97.6 Weight Weight [ ] Input and Output Intake and Output Intake and Output 07/29/19 07:00 Intake Total 450 ml Output Total 975 ml Balance -525 ml Intake Oral 450 ml Output Urine Total 975 ml # Voids 2 Laboratory Labs Laboratory Tests Test 07/28/19 11:51 07/29/19 03:40 Urine Collection Type Unknown Urine Color Yellow Urine Clarity Cloudy Urine pH 5.5 Urine Specific [place] 1.010 Urine Protein Negative mg/dL (NEG-TRACE) Urine Glucose (UA) Negative mg/dL (NEG) Urine Ketones (Stick) Negative mg/dL (NEG) Urine Blood Small (NEG) Urine Nitrite Negative (NEG) Urine Bilirubin Negative (NEG) Urine Urobilinogen Dipstick 0.2 mg/dL (0.2 mg/dL) Urine Leukocyte Esterase Negative (NEG) Urine RBC Occ /HPF (0-2) Urine WBC Occ /HPF (0-4) Urine Squamous Epithelial Cells Few /LPF Urine Bacteria Few /HPF (0-FEW) White Blood Count 3.1 x10^3/uL (4.0-11.0) Red Blood Count 4.75 x10^6/uL (4.30-5.70) Hemoglobin 15.6 g/dL (13.0-17.5) Hematocrit 48.4 % (39.0-53.0) Mean Corpuscular Volume 102 fL (79-100) Mean Corpuscular Hemoglobin 33 pg (25-35) Mean Corpuscular Hemoglobin Concent 32 g/dL (31-37) Red Cell Distribution Width 13.7 % (11.5-14.5) Platelet Count 164 x10^3/uL (140-400) Erythrocyte Sedimentation Rate 20 (0-15) Sodium Level 142 mmol/L (136-145) Potassium Level 4.9 mmol/L (3.5-5.1) Chloride Level 98 mmol/L (98-107) Carbon Dioxide Level > 45 mmol/L (21-32) Anion Gap (6-14) Blood Urea Nitrogen 34 mg/dL (8-26) Creatinine 0.9 mg/dL (0.7-1.3) Estimated GFR (Cockcroft-Gault) 97.8 BUN/Creatinine Ratio 38 (6-20) Glucose Level 146 mg/dL (70-99) Calcium Level 8.9 mg/dL (8.5-10.1) Total Bilirubin 0.3 mg/dL (0.2-1.0) Aspartate Amino Transf (AST/SGOT) 86 U/L (15-37) Alanine Aminotransferase (ALT/SGPT) 169 U/L (16-63) Alkaline Phosphatase 103 U/L (46-116) Total Protein 7.7 g/dL (6.4-8.2) Albumin 2.9 g/dL (3.4-5.0) Albumin/Globulin Ratio 0.6 (1.0-1.7) Physical Exam HEENT: Neck Supple W Full Motion Chest: Symmetric LUNGS: Clear to Auscultation Heart: S1S2, RRR (SR) Abdomen: Soft N/T Extremities: No Calf Tenderness Neurology: alert, oriented, follow commands Assessment Assessment 1, Encephalopathy vs CVA syndrome: Neuro following. MRI pending 2. AECOPD 3. 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 Cor Pulmonale 5. Mild Elevated troponin: peaked at 0.06, demand mediated 6. Transaminitis: suspect from hepatic congestion 7. Tobaccoism 8. Metabolic syndrome: A1C 6.4 9. DLP 10. Arrhythmia: PSVT/PAT. occasional WAP Recommendation 1. BP currently controlled. Will need low dose BB once wheezing is better 2. Start on ASA and low dose statin. Change to PO lasix. 3. Follow up in office, will consider for outpt stress test given his significant cardiac risk factors. 4. smoking cessation 5. Follow up with Dr. De La Cruz, SatSep 16 at 1:30 PM AGNES DE LA CRUZ MD 07/29/19 1630: CARDIO Progress Notes Assessment Assessment Patient seen and examined. Agree with [employer]'s assessment and plan. Acute on chronic diastolic heart failure better compensated Slight troponin elevation probably demand ischemia 2-D echo showed normal LV function Continue current treatment for acute COPD exacerbation Follow-up in 1 month MICHELE RIVERA APRN Jul 29, 2019 11:58 AGNES DE LA CRUZ MD Jul 29, 2019 16:30
--- NOTE | 2019-07-29 13:48 | PDOC ---
PROGRESS NOTES Chief Complaint Chief Complaint A/P: Acute hypoxic respiratory failure - no formal diagnosis of COPD but has emphysematous changes on CXR and CT Emphysema - by CXR. Will consult pulm. This is an acute COPD exacerbation, will give tong pulm consultation Smoker - counseled on cessation. Has smoked almost Elevated troponin - denies CP, likely this is demand ischemia, will trend troponins. Advise cardiology of admit and admit to [facility]VC Transaminitis - he stopped drinking 20 years ago, concerning for underlying liver disease. Will trend Pulmonary infiltrates - likely this is interstitial fluid, given lasix in ED Thrombocytopenia - will monitor, uncertain etiology Macrocytosis - no anemia, does not drink. Will check B12 level Leukopenia - WBC 2.9 Tachycardia - concerning with his obvious smoking history and emphysema. D dimer was not negative. Will get CTPA to check for acute pulmonary embolism FEN - Cardiac diet PPX - lovenox FULL CODE Dispo - inpatient for new hypoxia History of Present Illness History of Present Illness Mr Dow is an 84yo M w/ PMHx OA, smoker with almost 60 pack year history, ex drinker (stopped 20 years ago) who has not seen a physician in years who pre sented to [facility] ED feeling short of breath for the past 10 months but particularly so the past 2 days. It is worsened by exertion. No recent sick contacts. In ED at [facility] he was found hypoxic to 86% despite 2L NCO2. He underwent CXR showing diffuse bilateral infiltrates and apical emphysematous changes. Labs significant for K of 5.1, Cr 1.1ALT 173, AST 217, platelets 176, MCV 101. D dimer was 586, troponin 0.11. EKG showed sinus tachycardia, RVH criteria, biatrial enlargement and ST martin vations in julia-lateral leads. He was given 40mg IV lasix in the ED and duonebs with only mild improvement. Still required O2. He lives at home in his . 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 He is retired [employer]. 07/28: CTPA negative for PE. Definitive emphysema. notes that he has been having trouble with word finding difficulty for a few weeks prior to admit. He feels a bit better today. Seen by Neurology, Cardiology, and Pulmonology Word finding improved. Seen by ARCHITECTURAL MODELER today. PT/OT due to weakness, recommending SNF. Diuresed, changed to PO lasix now. Awaiting MRI per neurology as CT shows concern for prior infarcts. Vitals Vitals Vital Signs Date Time Temp Pulse Resp B/P (MAP) Pulse Ox O2 Delivery O2 Flow Rate FiO2 07/29/19 12:48 93 Nasal Cannula 3.0 07/29/19 11:00 97.2 102 20 111/69 (83) 97.2 Physical Exam General: Alert, Oriented X3, Cooperative, No acute distress Heart: Regular rate (SR/ST), Other (distant heart sounds) Abdomen: Soft Extremities: No cyanosis, No edema Skin: No breakdown, No significant lesion Labs LABS Laboratory Tests Test 07/29/19 03:40 White Blood Count 3.1 x10^3/uL (4.0-11.0) Red Blood Count 4.75 x10^6/uL (4.30-5.70) Hemoglobin 15.6 g/dL (13.0-17.5) Hematocrit 48.4 % (39.0-53.0) Mean Corpuscular Volume 102 fL (79-100) Mean Corpuscular Hemoglobin 33 pg (25-35) Mean Corpuscular Hemoglobin Concent 32 g/dL (31-37) Red Cell Distribution Width 13.7 % (11.5-14.5) Platelet Count 164 x10^3/uL (140-400) Erythrocyte Sedimentation Rate 20 (0-15) Sodium Level 142 mmol/L (136-145) Potassium Level 4.9 mmol/L (3.5-5.1) Chloride Level 98 mmol/L (98-107) Carbon Dioxide Level > 45 mmol/L (21-32) Anion Gap (6-14) Blood Urea Nitrogen 34 mg/dL (8-26) Creatinine 0.9 mg/dL (0.7-1.3) Estimated GFR (Cockcroft-Gault) 97.8 BUN/Creatinine Ratio 38 (6-20) Glucose Level 146 mg/dL (70-99) Calcium Level 8.9 mg/dL (8.5-10.1) Total Bilirubin 0.3 mg/dL (0.2-1.0) Aspartate Amino Transf (AST/SGOT) 86 U/L (15-37) Alanine Aminotransferase (ALT/SGPT) 169 U/L (16-63) Alkaline Phosphatase 103 U/L (46-116) Total Protein 7.7 g/dL (6.4-8.2) Albumin 2.9 g/dL (3.4-5.0) Albumin/Globulin Ratio 0.6 (1.0-1.7) Comment Review of Relevant I have reviewed the following items paris (where applicable) has been applied. Labs Laboratory Tests Test 07/27/19 18:05 07/28/19 00:40 07/28/19 03:05 07/28/19 08:05 Blood Urea Nitrogen 28 mg/dL (8-26) 25 mg/dL (8-26) Creatinine 1.1 mg/dL (0.7-1.3) 0.8 mg/dL (0.7-1.3) Estimated GFR (Cockcroft-Gault) 77.5 112.0 Troponin I Quantitative 0.062 ng/mL (0.000-0.055) 0.039 ng/mL (0.000-0.055) 0.054 ng/mL (0.000-0.055) White Blood Count 2.9 x10^3/uL (4.0-11.0) Red Blood Count 4.98 x10^6/uL (4.30-5.70) Hemoglobin 16.2 g/dL (13.0-17.5) Hematocrit 50.1 % (39.0-53.0) Mean Corpuscular Volume 101 fL (79-100) Mean Corpuscular Hemoglobin 33 pg (25-35) Mean Corpuscular Hemoglobin Concent 32 g/dL (31-37) Red Cell Distribution Width 14.0 % (11.5-14.5) Platelet Count 159 x10^3/uL (140-400) Neutrophils (%) (Auto) 80 % (31-73) Lymphocytes (%) (Auto) 11 % (24-48) Monocytes (%) (Auto) 9 % (0-9) Eosinophils (%) (Auto) 0 % (0-3) Basophils (%) (Auto) 0 % (0-3) Neutrophils # (Auto) 2.3 x10^3/uL (1.8-7.7) Lymphocytes # (Auto) 0.3 x10^3/uL (1.0-4.8) Monocytes # (Auto) 0.2 x10^3/uL (0.0-1.1) Eosinophils # (Auto) 0.0 x10^3/uL (0.0-0.7) Basophils # (Auto) 0.0 x10^3/uL (0.0-0.2) Segmented Neutrophils % 49 % (35-66) Band Neutrophils % 17 % (0-9) Lymphocytes % 14 % (24-48) Atypical Lymphocytes % (Manual) 2 % (0-0) Monocytes % 17 % (0-10) Eosinophils % 1 % (0-5) Platelet Estimate Adequate (ADEQUATE) Large Platelets Few Giant Platelets Present Target Cells Present Sodium Level 144 mmol/L (136-145) Potassium Level 4.9 mmol/L (3.5-5.1) Chloride Level 100 mmol/L (98-107) Carbon Dioxide Level 41 mmol/L (21-32) Anion Gap 3 (6-14) BUN/Creatinine Ratio 31 (6-20) Glucose Level 170 mg/dL (70-99) Hemoglobin A1c 6.4 % (4.8-5.6) Calcium Level 8.6 mg/dL (8.5-10.1) Magnesium Level 2.1 mg/dL (1.8-2.4) Total Bilirubin 0.3 mg/dL (0.2-1.0) Aspartate Amino Transf (AST/SGOT) 128 U/L (15-37) Alanine Aminotransferase (ALT/SGPT) 177 U/L (16-63) Alkaline Phosphatase 117 U/L (46-116) QB-Agy-W-Type Natriuretic Peptide 6693 pg/mL (0-449) Total Protein 7.2 g/dL (6.4-8.2) Albumin 2.9 g/dL (3.4-5.0) Albumin/Globulin Ratio 0.7 (1.0-1.7) Triglycerides Level 75 mg/dL (0-150) Cholesterol Level 165 mg/dL (0-200) LDL Cholesterol, Calculated 107 mg/dL (0-100) VLDL Cholesterol, Calculated 15 mg/dL (0-40) Non-HDL Cholesterol Calculated 122 mg/dL (0-129) HDL Cholesterol 43 mg/dL (40-60) Cholesterol/HDL Ratio 3.8 Vitamin B12 Level 1469 pg/mL (247-911) Thyroid Stimulating Hormone (TSH) 0.553 uIU/mL (0.358-3.74) Prothrombin Time 14.1 SEC (11.7-14.0) Prothromb Time International Ratio 1.1 (0.8-1.1) Test 07/28/19 10:30 07/28/19 11:51 07/29/19 03:40 Ammonia < 10 mcmol/L (11-34) Procalcitonin 0.23 ng/mL (0.00-0.10) Urine Collection Type Unknown Urine Color Yellow Urine Clarity Cloudy Urine pH 5.5 Urine Specific [place] 1.010 Urine Protein Negative mg/dL (NEG-TRACE) Urine Glucose (UA) Negative mg/dL (NEG) Urine Ketones (Stick) Negative mg/dL (NEG) Urine Blood Small (NEG) Urine Nitrite Negative (NEG) Urine Bilirubin Negative (NEG) Urine Urobilinogen Dipstick 0.2 mg/dL (0.2 mg/dL) Urine Leukocyte Esterase Negative (NEG) Urine RBC Occ /HPF (0-2) Urine WBC Occ /HPF (0-4) Urine Squamous Epithelial Cells Few /LPF Urine Bacteria Few /HPF (0-FEW) White Blood Count 3.1 x10^3/uL (4.0-11.0) Red Blood Count 4.75 x10^6/uL (4.30-5.70) Hemoglobin 15.6 g/dL (13.0-17.5) Hematocrit 48.4 % (39.0-53.0) Mean Corpuscular Volume 102 fL (79-100) Mean Corpuscular Hemoglobin 33 pg (25-35) Mean Corpuscular Hemoglobin Concent 32 g/dL (31-37) Red Cell Distribution Width 13.7 % (11.5-14.5) Platelet Count 164 x10^3/uL (140-400) Erythrocyte Sedimentation Rate 20 (0-15) Sodium Level 142 mmol/L (136-145) Potassium Level 4.9 mmol/L (3.5-5.1) Chloride Level 98 mmol/L (98-107) Carbon Dioxide Level > 45 mmol/L (21-32) Anion Gap (6-14) Blood Urea Nitrogen 34 mg/dL (8-26) Creatinine 0.9 mg/dL (0.7-1.3) Estimated GFR (Cockcroft-Gault) 97.8 BUN/Creatinine Ratio 38 (6-20) Glucose Level 146 mg/dL (70-99) Calcium Level 8.9 mg/dL (8.5-10.1) Total Bilirubin 0.3 mg/dL (0.2-1.0) Aspartate Amino Transf (AST/SGOT) 86 U/L (15-37) Alanine Aminotransferase (ALT/SGPT) 169 U/L (16-63) Alkaline Phosphatase 103 U/L (46-116) Total Protein 7.7 g/dL (6.4-8.2) Albumin 2.9 g/dL (3.4-5.0) Albumin/Globulin Ratio 0.6 (1.0-1.7) Laboratory Tests Test 07/29/19 03:40 White Blood Count 3.1 x10^3/uL (4.0-11.0) Red Blood Count 4.75 x10^6/uL (4.30-5.70) Hemoglobin 15.6 g/dL (13.0-17.5) Hematocrit 48.4 % (39.0-53.0) Mean Corpuscular Volume 102 fL (79-100) Mean Corpuscular Hemoglobin 33 pg (25-35) Mean Corpuscular Hemoglobin Concent 32 g/dL (31-37) Red Cell Distribution Width 13.7 % (11.5-14.5) Platelet Count 164 x10^3/uL (140-400) Erythrocyte Sedimentation Rate 20 (0-15) Sodium Level 142 mmol/L (136-145) Potassium Level 4.9 mmol/L (3.5-5.1) Chloride Level 98 mmol/L (98-107) Carbon Dioxide Level > 45 mmol/L (21-32) Anion Gap (6-14) Blood Urea Nitrogen 34 mg/dL (8-26) Creatinine 0.9 mg/dL (0.7-1.3) Estimated GFR (Cockcroft-Gault) 97.8 BUN/Creatinine Ratio 38 (6-20) Glucose Level 146 mg/dL (70-99) Calcium Level 8.9 mg/dL (8.5-10.1) Total Bilirubin 0.3 mg/dL (0.2-1.0) Aspartate Amino Transf (AST/SGOT) 86 U/L (15-37) Alanine Aminotransferase (ALT/SGPT) 169 U/L (16-63) Alkaline Phosphatase 103 U/L (46-116) Total Protein 7.7 g/dL (6.4-8.2) Albumin 2.9 g/dL (3.4-5.0) Albumin/Globulin Ratio 0.6 (1.0-1.7) Medications Current Medications Ondansetron HCl (Zofran) 4 mg PRN Q4HRS PRN IV NAUSEA/VOMITING; Start 07/27/19 at 16:30 Acetaminophen (Tylenol) 650 mg PRN Q4HRS PRN PO TEMP OVER 100.4F OR MILD PAIN; Start 07/27/19 at 16:30 Docusate Sodium (Colace) 100 mg PRN BID PRN PO CONSTIPATION; Start 07/27/19 at 16:30 Albuterol Sulfate (Ventolin Neb Soln) 2.5 mg PRN Q4HRS PRN NEB SHORTNESS OF BREATH; Start 07/27/19 at 16:30 Albuterol/ Ipratropium (Duoneb) 3 ml Q4H NEB Last administered on 07/29/19at 12:48; Start 07/27/19 at 16:30 Enoxaparin Sodium (Lovenox 40mg Syringe) 40 mg DAILY SQ Last administered on 07/29/19at 09:37; Start 07/28/19 at 09:00 Methylprednisolone Sodium Succinate (SOLU-Medrol 40MG VIAL) 40 mg Q8HRS IV Last administered on 07/29/19at 06:28; Start 07/27/19 at 22:00 Buspirone HCl (Buspar) 5 mg PRN TID PRN PO anxiety; Start 07/27/19 at 16:30 Trazodone HCl (Desyrel) 50 mg PRN QHS PRN PO INSOMNIA; Start 07/27/19 at 16:30 Budesonide (Pulmicort) 0.5 mg RTBID NEB Last administered on 07/29/19at 07:30; Start 07/27/19 at 20:00 Iohexol (Omnipaque 350 Mg/ml) 100 ml 1X ONCE IV Last administered on 07/27/19at 20:50; Start 07/27/19 at 19:15; Stop 07/27/19 at 19:16; Status DC Info (CONTRAST GIVEN -- Rx MONITORING) 1 each PRN DAILY PRN MC SEE COMMENTS; Start 07/27/19 at 19:30; Stop 07/29/19 at 19:29 Furosemide (Lasix) 40 mg [id number] IVP Last administered on 07/28/19at 15:06; Start 07/28/19 at 09:00; Stop 07/28/19 at 16:16; Status DC Furosemide (Lasix) 40 mg DAILY IVP Last administered on 07/29/19at 09:37; Star t 07/29/19 at 09:00; Stop 07/29/19 at 11:58; Status DC Furosemide (Lasix) 20 mg DAILY PO ; Start 07/30/19 at 09:00 Atorvastatin Calcium (Lipitor) 10 mg QHS PO ; Start 07/29/19 at 21:00 Aspirin (Ecotrin) 81 mg [id number] PO ; Start 07/30/19 at 08:00 Vitals/I & O Vital Sign - Last 24 Hours 07/28/19 07/28/19 07/28/19 07/28/19 15:00 16:30 19:58 20:00 Temp 98.1 98.4 98.1 98.4 Pulse 108 111 Resp 18 24 B/P (MAP) 98/53 (68) 104/60 (75) Pulse Ox 94 93 O2 Delivery Nasal Cannula Nasal Cannula Nasal Cannula Nasal Cannula O2 Flow Rate 3.0 3.0 3.5 3.0 07/28/19 07/28/19 07/28/19 07/29/19 20:00 23:20 23:22 03:42 Temp 98.3 97.5 98.3 97.5 Pulse 111 96 Resp 24 16 B/P (MAP) 109/63 (78) 113/65 (81) Pulse Ox 94 92 94 97 O2 Delivery Nasal Cannula Nasal Cannula RT Treatment Nasal Cannula O2 Flow Rate 3.0 3.0 3.0 4.0 07/29/19 07/29/19 07/29/19 07/29/19 04:05 07:00 07:30 08:00 Temp 97.6 97.6 Pulse 105 Resp 20 B/P (MAP) 115/64 (81) Pulse Ox 92 94 O2 Delivery Nasal Cannula Nasal Cannula Nasal Cannula Nasal Cannula O2 Flow Rate 3.0 3.5 3.0 3.0 07/29/19 07/29/19 11:00 12:48 Temp 97.2 97.2 Pulse 102 Resp 20 B/P (MAP) 111/69 (83) Pulse Ox 92 93 O2 Delivery Nasal Cannula Nasal Cannula O2 Flow Rate 3.5 3.0 Intake and Output 07/28/19 07/28/19 07/29/19 15:00 23:00 07:00 Intake Total 200 ml 200 ml 50 ml Output Total 400 ml 475 ml 100 ml Balance -200 ml -275 ml -50 ml Nutrition Consultation Dietary Evaluation: Recommendations by RD: Increase Calorie Intake, Protein supplementation Comments: Continue w/regular diet as ordered, honor food preferences, and provide snacks as requested REC Ensure pudding (vanilla) w/dinner Expected Outcomes/Goals: PO intake to meet >75% est needs Malnutrition Findings: Food and Nutrition Intake (Mod: <75% est energy req 7days Body Fat Depletion (Non Severe: Mild Depletion Weight Status: Appropriate NUHA AMANDA MD Jul 29, 2019 13:48
[2019-07-29 15:00] VITALS: BP 96/52
[2019-07-29] MEDS ORDERED: DOXYCYCLINE HYCLATE 100 MG in IV DEXTROSE 5% 100ML 100 ML IV ONE (15:00)
--- NOTE | 2019-07-29 15:47 | RAD ---
MRI Brain without contrast History: New onset aphasia Technique: Multiplanar, multisequential noncontrast MR imaging was performed of the brain. Comparison: 07/28/[address] exam Findings: There is motion degradation. There is no evidence of recent infarct or cytotoxic edema. The ventricles, sulci, and cisterns are within normal limits in size and configuration. There is no significant midline shift, intraaxial mass effect, or focal abnormal extra-axial fluid collection. There is multifocal scattered mild/moderate T2 and FLAIR hyperintense signal of the supratentorial parenchyma bilaterally. There is old lacunar infarct right basal ganglia also likely small old lacunar infarct along the left external capsule. Gradient echo sequence is not diagnostic due to motion. Right intradural vertebral artery flow-void is not well-visualized, may be aplastic. There is deviation medially of fat from the left orbit likely due to sequela of previous lamina papyracea fracture. The mastoid air cells are aerated. The cerebellar tonsils are normal in location. There is no significant abnormality of the pineal gland or pituitary gland. Paranasal sinuses are overall aerated. There is preserved marrow signal of the clivus. Impression: 1. There is no evidence of recent infarct. Exam is degraded by motion. Scattered T2 and FLAIR hyperintense signal of the supratentorial parenchyma is nonspecific although probably due to chronic microvascular ischemic disease in a patient this age, also old lacunar infarcts of the bilateral basal ganglia. Electronically signed by: David Polo MD (07/29/2019 3:44 PM) [email or web address]
[2019-07-29 19:22] VITALS: BP 127/72
[2019-07-29 20:47] LABS: BASE EXCESS ABG 20 mmol/L (-3-3); HCO3 ABG 56 mmol/L (21-28); PO2 ABG 81 mmHg (65-108); SAT O2 ABG 93 % (92-99)
[2019-07-29 20:52] LABS: FIO2 ABG 36; PCO2 ABG 142 mmHg (35-46)
[2019-07-29] MEDS: ATORVASTATIN CALCIUM 10 MG TABLET. PO SCH (21:00)
[2019-07-29] MEDS ORDERED: DOXYCYCLINE HYCLATE 100 MG TABLET PO SCH (21:00)
[2019-07-29] MEDS: DOXYCYCLINE HYCLATE 100 MG in IV DEXTROSE 5% 100ML 100 ML IV SCH (22:01)
[2019-07-29 22:31] VITALS: BP 111/71
[2019-07-29 23:00] LABS: BASE EXCESS ABG 19 mmol/L (-3-3); HCO3 ABG 53 mmol/L (21-28); PO2 ABG 68 mmHg (65-108); SAT O2 ABG 92 % (92-99)
[2019-07-29 23:04] LABS: FIO2 ABG 40; PCO2 ABG 105 mmHg (35-46)
[2019-07-30 02:43] VITALS: BP 107/68
[2019-07-30] MEDS: IPRATRPIUM/ALBUTEROL 0.5/2.5MG 3 ML NEBU. NEB SCH ×5 (03:05→20:27)
[2019-07-30] MEDS: methylPREDNISolone SOD SUCC PF 40 MG/ML VIAL. IV SCH ×3 (06:04→21:18)
[2019-07-30 07:00] VITALS: BP 119/75
--- NOTE | 2019-07-30 08:21 | PDOC ---
PROGRESS NOTES Chief Complaint Chief Complaint A/P: Acute hypoxic respiratory failure - no formal diagnosis of COPD but has emphysematous changes on CXR and CT Emphysema - by CXR. Will consult pulm. This is an acute COPD exacerbation, will give tong, pulm consultation Smoker - counseled on cessation. Has smoked almost Elevated troponin - denies CP, likely this is demand ischemia, will trend troponins. Advise cardiology of admit and admit to CVC Transaminitis - he stopped drinking 20 years ago, concerning for underlying liver disease. Will trend Pulmonary infiltrates - likely this is interstitial fluid, given lasix in ED Thrombocytopenia - will monitor, uncertain etiology Macrocytosis - no anemia, does not drink. Will check B12 level SEPSIS - present on admission, secondary to acute COPD exacerbation, has Leukopenia - WBC 2.9, tachycardia, tachypnea Tachycardia - concerning with his obvious smoking history and emphysema. D dimer was elevated, had CTPA to check for acute pulmonary embolism, negative FEN - Cardiac diet PPX - lovenox FULL CODE Dispo - inpatient for new hypoxia, likely to SNF in next day History of Present Illness History of Present Illness Mr Dow is an 84yo M w/ PMHx OA, smoker with almost 60 pack year history, ex drinker (stopped 20 years ago) who has not seen a physician in years who presen natanael to [facility] at [facility] ED feeling short of breath for the past 10 months but particularly so the past 2 days. It is worsened by exertion. No recent sick contacts. In ED at [facility] he was found hypoxic to 86% despite 2L NCO2. He underwent CXR showing diffuse bilateral infiltrates and apical emphysematous changes. Labs significant for K of 5.1, Cr 1.1ALT 173, AST 217, platelets 176, MCV 101. D dimer was 586, troponin 0.11. EKG showed sinus tachycardia, RVH criteria, biatrial enlargement and ST elevat ions in julia-lateral leads. He was given 40mg IV lasix in the ED and duonebs with only mild improvement. Still required O2. He lives at home in his . 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 He is retired [employer]. 07/28: CTPA negative for PE. Definitive emphysema. notes that he has been having trouble with word finding difficulty for a few weeks prior to admit. He feels a bit better today. Seen by Neurology, Cardiology, and Pulmonology 07/29: Word finding improved. Seen by MAP EDITOR today. PT/OT due to weakness, recommending SNF. Diuresed, changed to PO lasix now. MRI per neurology as CT shows concern for prior infarcts - confirmed old lacunar infarcts, no new infarcts. Last night was confused, ABG 7.22/142/81 --> 7.32/105/68 with BIPAP, then overnight improved to remove it, but he was removing his NCO2, so was placed on venti-mask. He is in good spirits, voice is more clear. He is still clearly somewhat confused. Accepted for placement but his respiratory status is still too tenuous, likely can d/c tomorrow. Will monitor ABG, likely he chronically retains a significant amount of CO2 Vitals Vitals Vital Signs Date Time Temp Pulse Resp B/P (MAP) Pulse Ox O2 Delivery O2 Flow Rate FiO2 07/30/19 05:25 94 BiPAP/CPAP 07/30/19 02:43 97.8 95 26 107/68 (81) 97.8 07/29/19 20:00 5.0 Physical Exam General: Alert, Oriented X3, Cooperative, No acute distress Heart: Regular rate (SR/ST), Other (distant heart sounds) Lungs: Wheezing, Crackles Abdomen: Soft Extremities: No cyanosis, No edema Skin: No breakdown, No significant lesion Labs LABS Laboratory Tests Test 07/29/19 20:30 07/29/19 22:36 O2 Saturation 93 % (92-99) 92 % (92-99) Arterial Blood pH 7.22 (7.35-7.45) 7.32 (7.35-7.45) Arterial Blood pCO2 at Patient Temp 142 mmHg (35-46) 105 mmHg (35-46) Arterial Blood pO2 at Patient Temp 81 mmHg (65-108) 68 mmHg (65-108) Arterial Blood HCO3 56 mmol/L (21-28) 53 mmol/L (21-28) Arterial Blood Base Excess 20 mmol/L (-3-3) 19 mmol/L (-3-3) FiO2 36 40 Comment Review of Relevant I have reviewed the following items paris (where applicable) has been applied. Labs Laboratory Tests Test 07/28/19 10:30 07/28/19 11:51 07/29/19 03:40 07/29/19 20:30 Ammonia < 10 mcmol/L (11-34) Procalcitonin 0.23 ng/mL (0.00-0.10) Urine Collection Type Unknown Urine Color Yellow Urine Clarity Cloudy Urine pH 5.5 Urine Specific [place] 1.010 Urine Protein Negative mg/dL (NEG-TRACE) Urine Glucose (UA) Negative mg/dL (NEG) Urine Ketones (Stick) Negative mg/dL (NEG) Urine Blood Small (NEG) Urine Nitrite Negative (NEG) Urine Bilirubin Negative (NEG) Urine Urobilinogen Dipstick 0.2 mg/dL (0.2 mg/dL) Urine Leukocyte Esterase Negative (NEG) Urine RBC Occ /HPF (0-2) Urine WBC Occ /HPF (0-4) Urine Squamous Epithelial Cells Few /LPF Urine Bacteria Few /HPF (0-FEW) White Blood Count 3.1 x10^3/uL (4.0-11.0) Red Blood Count 4.75 x10^6/uL (4.30-5.70) Hemoglobin 15.6 g/dL (13.0-17.5) Hematocrit 48.4 % (39.0-53.0) Mean Corpuscular Volume 102 fL (79-100) Mean Corpuscular Hemoglobin 33 pg (25-35) Mean Corpuscular Hemoglobin Concent 32 g/dL (31-37) Red Cell Distribution Width 13.7 % (11.5-14.5) Platelet Count 164 x10^3/uL (140-400) Erythrocyte Sedimentation Rate 20 (0-15) Sodium Level 142 mmol/L (136-145) Potassium Level 4.9 mmol/L (3.5-5.1) Chloride Level 98 mmol/L (98-107) Carbon Dioxide Level > 45 mmol/L (21-32) Anion Gap (6-14) Blood Urea Nitrogen 34 mg/dL (8-26) Creatinine 0.9 mg/dL (0.7-1.3) Estimated GFR (Cockcroft-Gault) 97.8 BUN/Creatinine Ratio 38 (6-20) Glucose Level 146 mg/dL (70-99) Calcium Level 8.9 mg/dL (8.5-10.1) Total Bilirubin 0.3 mg/dL (0.2-1.0) Aspartate Amino Transf (AST/SGOT) 86 U/L (15-37) Alanine Aminotransferase (ALT/SGPT) 169 U/L (16-63) Alkaline Phosphatase 103 U/L (46-116) Total Protein 7.7 g/dL (6.4-8.2) Albumin 2.9 g/dL (3.4-5.0) Albumin/Globulin Ratio 0.6 (1.0-1.7) O2 Saturation 93 % (92-99) Arterial Blood pH 7.22 (7.35-7.45) Arterial Blood pCO2 at Patient Temp 142 mmHg (35-46) Arterial Blood pO2 at Patient Temp 81 mmHg (65-108) Arterial Blood HCO3 56 mmol/L (21-28) Arterial Blood Base Excess 20 mmol/L (-3-3) FiO2 36 Test 07/29/19 22:36 O2 Saturation 92 % (92-99) Arterial Blood pH 7.32 (7.35-7.45) Arterial Blood pCO2 at Patient Temp 105 mmHg (35-46) Arterial Blood pO2 at Patient Temp 68 mmHg (65-108) Arterial Blood HCO3 53 mmol/L (21-28) Arterial Blood Base Excess 19 mmol/L (-3-3) FiO2 40 Laboratory Tests Test 07/29/19 20:30 07/29/19 22:36 O2 Saturation 93 % (92-99) 92 % (92-99) Arterial Blood pH 7.22 (7.35-7.45) 7.32 (7.35-7.45) Arterial Blood pCO2 at Patient Temp 142 mmHg (35-46) 105 mmHg (35-46) Arterial Blood pO2 at Patient Temp 81 mmHg (65-108) 68 mmHg (65-108) Arterial Blood HCO3 56 mmol/L (21-28) 53 mmol/L (21-28) Arterial Blood Base Excess 20 mmol/L (-3-3) 19 mmol/L (-3-3) FiO2 36 40 Medications Current Medications Ondansetron HCl (Zofran) 4 mg PRN Q4HRS PRN IV NAUSEA/VOMITING; Start 07/27/19 at 16:30 Acetaminophen (Tylenol) 650 mg PRN Q4HRS PRN PO TEMP OVER 100.4F OR MILD PAIN; Start 07/27/19 at 16:30 Docusate Sodium (Colace) 100 mg PRN BID PRN PO CONSTIPATION; Start 07/27/19 at 16:30 Albuterol Sulfate (Ventolin Neb Soln) 2.5 mg PRN Q4HRS PRN NEB SHORTNESS OF BREATH; Start 07/27/19 at 16:30 Albuterol/ Ipratropium (Duoneb) 3 ml Q4H NEB Last administered on 07/30/19at 03:05; Start 07/27/19 at 16:30 Enoxaparin Sodium (Lovenox 40mg Syringe) 40 mg DAILY SQ Last administered on 07/29/19at 09:37; Start 07/28/19 at 09:00 Methylprednisolone Sodium Succinate (SOLU-Medrol 40MG VIAL) 40 mg Q8HRS IV Last administered on 07/30/19at 06:04; Start 07/27/19 at 22:00 Buspirone HCl (Buspar) 5 mg PRN TID PRN PO anxiety; Start 07/27/19 at 16:30 Trazodone HCl (Desyrel) 50 mg PRN QHS PRN PO INSOMNIA; Start 07/27/19 at 16:30 Budesonide (Pulmicort) 0.5 mg RTBID NEB Last administered on 07/29/19at 19:48; Start 07/27/19 at 20:00 Iohexol (Omnipaque 350 Mg/ml) 100 ml 1X ONCE IV Last administered on 07/27/19at 20:50; Start 07/27/19 at 19:15; Stop 07/27/19 at 19:16; Status DC Info (CONTRAST GIVEN -- Rx MONITORING) 1 each PRN DAILY PRN MC SEE COMMENTS; Start 07/27/19 at 19:30; Stop 07/29/19 at 19:29; Status DC Furosemide (Lasix) 40 mg BID92 IVP Last administered on 07/28/19at 15:06; Start 07/28/19 at 09:00; Stop 07/28/19 at 16:16; Status DC Furosemide (Lasix) 40 mg DAILY IVP Last administered on 07/29/19at 09:37; Start 07/29/19 at 09:00; Stop 07/29/19 at 11:58; Status DC Furosemide (Lasix) 20 mg DAILY PO ; Start 07/30/19 at 09:00 Atorvastatin Calcium (Lipitor) 10 mg QHS PO ; Start 07/29/19 at 21:00 Aspirin (Ecotrin) 81 mg DAILYWBKFT PO ; Start 07/30/19 at 08:00 Doxycycline Hyclate 100 mg/ Dextrose 100 ml @ 50 mls/hr 1X ONCE IV Last administered on 07/29/19at 15:18; Start 07/29/19 at 15:00; Stop 07/29/19 at 16:59; Status DC Doxycycline Hyclate (Vibra-Tab) 100 mg BID PO ; Start 07/29/19 at 21:00; Stop 07/29/19 at 21:48; Status DC Lorazepam (Ativan Inj) 0.25 mg PRN Q6HRS PRN IVP ANXIETY / AGITATION Last administered on 07/29/19at 20:16; Start 07/29/19 at 20:15 Lorazepam (Ativan Inj) 0.5 mg PRN Q6HRS PRN IVP ANXIETY / AGITATION; Start 07/29/19 at 20:15 Doxycycline Hyclate 100 mg/ Dextrose 100 ml @ 50 mls/hr Q12HR IV Last administered on 07/29/19at 22:01; Start 07/29/19 at 22:00 Vitals/I & O Vital Sign - Last 24 Hours 07/29/19 07/29/19 07/29/19 07/29/19 11:00 12:48 15:00 15:55 Temp 97.2 98.5 97.2 98.5 Pulse 102 92 Resp 20 20 B/P (MAP) 111/69 (83) 96/52 (67) Pulse Ox 92 93 90 94 O2 Delivery Nasal Cannula Nasal Cannula Nasal Cannula Nasal Cannula O2 Flow Rate 3.5 3.0 3.5 3.0 07/29/19 07/29/19 07/29/19 07/29/19 19:22 19:54 19:55 20:00 Temp 99.2 99.2 Pulse 108 Resp 28 B/P (MAP) 127/72 (90) Pulse Ox 100 90 90 O2 Delivery Nasal Cannula Nasal Cannula Nasal Cannula Nasal Cannula O2 Flow Rate 4.0 3.0 3.0 5.0 07/29/19 07/29/19 07/29/19 07/29/19 20:45 21:36 22:31 23:30 Temp 97.9 97.9 Pulse 91 Resp 26 B/P (MAP) 111/71 (84) Pulse Ox 94 92 96 97 O2 Delivery BiPAP/CPAP BiPAP/CPAP BiPAP/CPAP BiPAP/CPAP 07/30/19 07/30/19 07/30/19 07/30/19 00:51 02:43 03:05 05:25 Temp 97.8 97.8 Pulse 95 Resp 26 B/P (MAP) 107/68 (81) Pulse Ox 92 94 94 94 O2 Delivery BiPAP/CPAP BiPAP/CPAP BiPAP/CPAP BiPAP/CPAP Intake and Output 0 07/29/19 07/29/19 07/30/19 15:00 23:00 07:00 Intake Total 400 ml 350 ml Output Total 400 ml 300 ml 200 ml Balance 0 ml -300 ml 150 ml Nutrition Consultation Dietary Evaluation: Recommendations by RD: Increase Calorie Intake, Protein supplementation Comments: Continue w/regular diet as ordered, honor food preferences, and provide snacks as requested REC Ensure pudding (vanilla) w/dinner Expected Outcomes/Goals: PO intake to meet >75% est needs Malnutrition Findings: Food and Nutrition Intake (Mod: <75% est energy req 7days Body Fat Depletion (Non Severe: Mild Depletion Weight Status: Appropriate NUHA AMANDA MD Jul 30, 2019 08:21
[2019-07-30] MEDS: BUDESONIDE 0.5 MG/2 ML NEBU. NEB SCH ×2 (08:44→20:26)
[2019-07-30] MEDS: DOXYCYCLINE HYCLATE 100 MG in IV DEXTROSE 5% 100ML 100 ML IV SCH ×2 (08:45→21:19)
[2019-07-30] MEDS: ENOXAPARIN 40 MG/0.4 ML SYRINGE. SQ SCH (08:46)
[2019-07-30] MEDS: FUROSEMIDE 20 MG TABLET PO SCH (08:46)
[2019-07-30] MEDS: ASPIRIN ENTERIC COATED 81 MG TABLET.DR. PO SCH (08:46)
[2019-07-30 09:01] LABS: BASE EXCESS ABG 19 mmol/L (-3-3); HCO3 ABG 48 mmol/L (21-28); PO2 ABG 66 mmHg (65-108); SAT O2 ABG 92 % (92-99)
[2019-07-30 09:05] LABS: PCO2 ABG 73 mmHg (35-46)
[2019-07-30 09:06] LABS: FIO2 ABG 35%
--- NOTE | 2019-07-30 10:01 | NUR ---
Patient triggered positive sepsis, sent Dr. Canas a message through you call , notified Farida garcia RN in ICU.
--- NOTE | 2019-07-30 10:26 | PDOC ---
PROGRESS NOTES Assessment Possible dementia, but he keeps improving, this may all be metabolic. Consider frontal temporal dementia, semantic type, or a variation of Alzheimer's disease. Slightly elevated sedimentation rate, not clinically relevant Plan Speech therapy consult appreciated Physical and occupational therapy Follow-up in my office in 6-8 weeks Subjective Does not like the BiPAP mask Objective Vital Signs Date Time Temp Pulse Resp B/P (MAP) Pulse Ox O2 Delivery O2 Flow Rate FiO2 07/30/19 08:47 94 Nasal Cannula 3.0 07/30/19 07:00 98.0 63 22 119/75 (90) 98.0 Intake and Output 07/30/19 07:00 Intake Total 750 ml Output Total 900 ml Balance -150 ml Intake Oral 750 ml Output Urine Total 900 ml # Voids 1 PHYSICAL EXAM Alert. Oriented to place and person, one day off on the date, word finding problems improving PERRL. EOMI. CN: no focal findings. Muscle tone: normal. Muscle strength: 5/5 DTR: 2+ Plantar reflex: flexor Gait: not examined in bed. Sensory exam: no abnormal findings. No cerebellar signs elicited. Review of Relevant I have reviewed the following items paris (where applicable) has been applied. Labs Laboratory Tests Test 07/28/19 10:30 07/28/19 11:51 07/29/19 03:40 07/29/19 20:30 Ammonia < 10 mcmol/L (11-34) Procalcitonin 0.23 ng/mL (0.00-0.10) Urine Collection Type Unknown Urine Color Yellow Urine Clarity Cloudy Urine pH 5.5 Urine Specific [place] 1.010 Urine Protein Negative mg/dL (NEG-TRACE) Urine Glucose (UA) Negative mg/dL (NEG) Urine Ketones (Stick) Negative mg/dL (NEG) Urine Blood Small (NEG) Urine Nitrite Negative (NEG) Urine Bilirubin Negative (NEG) Urine Urobilinogen Dipstick 0.2 mg/dL (0.2 mg/dL) Urine Leukocyte Esterase Negative (NEG) Urine RBC Occ /HPF (0-2) Urine WBC Occ /HPF (0-4) Urine Squamous Epithelial Cells Few /LPF Urine Bacteria Few /HPF (0-FEW) White Blood Count 3.1 x10^3/uL (4.0-11.0) Red Blood Count 4.75 x10^6/uL (4.30-5.70) Hemoglobin 15.6 g/dL (13.0-17.5) Hematocrit 48.4 % (39.0-53.0) Mean Corpuscular Volume 102 fL (79-100) Mean Corpuscular Hemoglobin 33 pg (25-35) Mean Corpuscular Hemoglobin Concent 32 g/dL (31-37) Red Cell Distribution Width 13.7 % (11.5-14.5) Platelet Count 164 x10^3/uL (140-400) Erythrocyte Sedimentation Rate 20 (0-15) Sodium Level 142 mmol/L (136-145) Potassium Level 4.9 mmol/L (3.5-5.1) Chloride Level 98 mmol/L (98-107) Carbon Dioxide Level > 45 mmol/L (21-32) Anion Gap (6-14) Blood Urea Nitrogen 34 mg/dL (8-26) Creatinine 0.9 mg/dL (0.7-1.3) Estimated GFR (Cockcroft-Gault) 97.8 BUN/Creatinine Ratio 38 (6-20) Glucose Level 146 mg/dL (70-99) Calcium Level 8.9 mg/dL (8.5-10.1) Total Bilirubin 0.3 mg/dL (0.2-1.0) Aspartate Amino Transf (AST/SGOT) 86 U/L (15-37) Alanine Aminotransferase (ALT/SGPT) 169 U/L (16-63) Alkaline Phosphatase 103 U/L (46-116) Total Protein 7.7 g/dL (6.4-8.2) Albumin 2.9 g/dL (3.4-5.0) Albumin/Globulin Ratio 0.6 (1.0-1.7) O2 Saturation 93 % (92-99) Arterial Blood pH 7.22 (7.35-7.45) Arterial Blood pCO2 at Patient Temp 142 mmHg (35-46) Arterial Blood pO2 at Patient Temp 81 mmHg (65-108) Arterial Blood HCO3 56 mmol/L (21-28) Arterial Blood Base Excess 20 mmol/L (-3-3) FiO2 36 Test 07/29/19 22:36 07/30/19 09:00 O2 Saturation 92 % (92-99) 92 % (92-99) Arterial Blood pH 7.32 (7.35-7.45) 7.44 (7.35-7.45) Arterial Blood pCO2 at Patient Temp 105 mmHg (35-46) 73 mmHg (35-46) Arterial Blood pO2 at Patient Temp 68 mmHg (65-108) 66 mmHg (65-108) Arterial Blood HCO3 53 mmol/L (21-28) 48 mmol/L (21-28) Arterial Blood Base Excess 19 mmol/L (-3-3) 19 mmol/L (-3-3) FiO2 40 35% Laboratory Tests Test 07/29/19 20:30 07/29/19 22:36 07/30/19 09:00 O2 Saturation 93 % (92-99) 92 % (92-99) 92 % (92-99) Arterial Blood pH 7.22 (7.35-7.45) 7.32 (7.35-7.45) 7.44 (7.35-7.45) Arterial Blood pCO2 at Patient Temp 142 mmHg (35-46) 105 mmHg (35-46) 73 mmHg (35-46) Arterial Blood pO2 at Patient Temp 81 mmHg (65-108) 68 mmHg (65-108) 66 mmHg (65-108) Arterial Blood HCO3 56 mmol/L (21-28) 53 mmol/L (21-28) 48 mmol/L (21-28) Arterial Blood Base Excess 20 mmol/L (-3-3) 19 mmol/L (-3-3) 19 mmol/L (-3-3) FiO2 36 40 35% Medications Current Medications Ondansetron HCl (Zofran) 4 mg PRN Q4HRS PRN IV NAUSEA/VOMITING; Start 07/27/19 at 16:30 Acetaminophen (Tylenol) 650 mg PRN Q4HRS PRN PO TEMP OVER 100.4F OR MILD PAIN; Start 07/27/19 at 16:30 Docusate Sodium (Colace) 100 mg PRN BID PRN PO CONSTIPATION; Start 07/27/19 at 16:30 Albuterol Sulfate (Ventolin Neb Soln) 2.5 mg PRN Q4HRS PRN NEB SHORTNESS OF BREATH; Start 07/27/19 at 16:30 Albuterol/ Ipratropium (Duoneb) 3 ml Q4H NEB Last administered on 07/30/19at 08:44; Start 07/27/19 at 16:30 Enoxaparin Sodium (Lovenox 40mg Syringe) 40 mg DAILY SQ Last administered on 07/30/19 08:46; Start 07/28/19 at 09:00 Methylprednisolone Sodium Succinate (SOLU-Medrol 40MG VIAL) 40 mg Q8HRS IV Last administered on 07/30/19at 06:04; Start 07/27/19 at 22:00 Buspirone HCl (Buspar) 5 mg PRN TID PRN PO anxiety; Start 07/27/19 at 16:30 Trazodone HCl (Desyrel) 50 mg PRN QHS PRN PO INSOMNIA; Start 07/27/19 at 16:30 Budesonide (Pulmicort) 0.5 mg RTBID NEB Last administered on 07/30/19 08:44; Start 07/27/19 at 20:00 Iohexol (Omnipaque 350 Mg/ml) 100 ml 1X ONCE IV Last administered on 07/27/19at 20:50; Start 07/27/19 at 19:15; Stop 07/27/19 at 19:16; Status DC Info (CONTRAST GIVEN -- Rx MONITORING) 1 each PRN DAILY PRN MC SEE COMMENTS; Start 07/27/19 at 19:30; Stop 07/29/19 at 19:29; Status DC Furosemide (Lasix) 40 mg BID92 IVP Last administered on 07/28/19at 15:06; Start 07/28/19 at 09:00; Stop 07/28/19 at 16:16; Status DC Furosemide (Lasix) 40 mg DAILY IVP Last administered on 07/29/19at 09:37; Start 07/29/19 at 09:00; Stop 07/29/19 at 11:58; Status DC Furosemide (Lasix) 20 mg DAILY PO Last administered on 07/30/19 08:46; Start 07/30/19 at 09:00 Atorvastatin Calcium (Lipitor) 10 mg QHS PO ; Start 07/29/19 at 21:00 Aspirin (Ecotrin) 81 mg DAILYWBKFT PO Last administered on 07/30/19 08:46; Start 07/30/19 at 08:00 Doxycycline Hyclate 100 mg/ Dextrose 100 ml @ 50 mls/hr 1X ONCE IV Last administered on 07/29/19at 15:18; Start 07/29/19 at 15:00; Stop 07/29/19 at 16:59; Status DC Doxycycline Hyclate (Vibra-Tab) 100 mg BID PO ; Start 07/29/19 at 21:00; Stop 07/29/19 at 21:48; Status DC Lorazepam (Ativan Inj) 0.25 mg PRN Q6HRS PRN IVP ANXIETY / AGITATION Last administered on 07/29/19at 20:16; Start 07/29/19 at 20:15 Lorazepam (Ativan Inj) 0.5 mg PRN Q6HRS PRN IVP ANXIETY / AGITATION; Start 07/29/19 at 20:15 Doxycycline Hyclate 100 mg/ Dextrose 100 ml @ 50 mls/hr Q12HR IV Last administered on 07/30/19at 08:45; Start 07/29/19 at 22:00 Vitals/I & O Vital Sign - Last 24 Hours 07/29/19 07/29/19 07/29/19 07/29/19 11:00 12:48 15:00 15:55 Temp 97.2 98.5 97.2 98.5 Pulse 102 92 Resp 20 20 B/P (MAP) 111/69 (83) 96/52 (67) Pulse Ox 92 93 90 94 O2 Delivery Nasal Cannula Nasal Cannula Nasal Cannula Nasal Cannula O2 Flow Rate 3.5 3.0 3.5 3.0 07/29/19 07/29/19 07/29/19 07/29/19 19:22 19:54 19:55 20:00 Temp 99.2 99.2 Pulse 108 Resp 28 B/P (MAP) 127/72 (90) Pulse Ox 100 90 90 O2 Delivery Nasal Cannula Nasal Cannula Nasal Cannula Nasal Cannula O2 Flow Rate 4.0 3.0 3.0 5.0 07/29/19 07/29/19 07/29/19 07/29/19 20:45 21:36 22:31 23:30 Temp 97.9 97.9 Pulse 91 Resp 26 B/P (MAP) 111/71 (84) Pulse Ox 94 92 96 97 O2 Delivery BiPAP/CPAP BiPAP/CPAP BiPAP/CPAP BiPAP/CPAP 07/30/19 07/30/19 07/30/19 07/30/19 00:51 02:43 03:05 05:25 Temp 97.8 97.8 Pulse 95 Resp 26 B/P (MAP) 107/68 (81) Pulse Ox 92 94 94 94 O2 Delivery BiPAP/CPAP BiPAP/CPAP BiPAP/CPAP BiPAP/CPAP 07/30/19 07/30/19 07/30/19 07/30/19 07:00 08:00 08:46 08:47 Temp 98.0 98.0 Pulse 63 Resp 22 B/P (MAP) 119/75 (90) Pulse Ox 96 94 94 O2 Delivery BiPAP/CPAP Bi-pap Nasal Cannula Nasal Cannula O2 Flow Rate 3.0 3.0 Intake and Output 07/29/19 07/29/19 07/30/19 15:00 23:00 07:00 Intake Total 400 ml 350 ml Output Total 400 ml 300 ml 200 ml Balance 0 ml -300 ml 150 ml Images MRI Brain without contrast History: New onset aphasia Technique: Multiplanar, multisequential noncontrast MR imaging was performed of the brain. Comparison: 07/28/[address] exam Findings: There is motion degradation. There is no evidence of recent infarct or cytotoxic edema. The ventricles, sulci, and cisterns are within normal limits in size and configuration. There is no significant midline shift, intraaxial mass effect, or focal abnormal extra-axial fluid collection. There is multifocal scattered mild/moderate T2 and FLAIR hyperintense signal of the supratentorial parenchyma bilaterally. There is old lacunar infarct right basal ganglia also likely small old lacunar infarct along the left external capsule. Gradient echo sequence is not diagnostic due to motion. Right intradural vertebral artery flow-void is not well-visualized, may be aplastic. There is deviation medially of fat from the left orbit likely due to sequela of previous lamina papyracea fracture. The mastoid air cells are aerated. The cerebellar tonsils are normal in location. There is no significant abnormality of the pineal gland or pituitary gland. Paranasal sinuses are overall aerated. There is preserved marrow signal of the clivus. Impression: 1. There is no evidence of recent infarct. Exam is degraded by motion. Scattered T2 and FLAIR hyperintense signal of the supratentorial parenchyma is nonspecific although probably due to chronic microvascular ischemic disease in a patient this age, also old lacunar infarcts of the bilateral basal ganglia. BARBIE ELISE MD Jul 30, 2019 10:26
--- NOTE | 2019-07-30 10:50 | PDOC ---
PULMONARY PROGRESS NOTES Subjective PT LAST BASIL MORE SOA ABG NOTED PLACED ON BIPAP Vitals Vital Signs Date Time Temp Pulse Resp B/P (MAP) Pulse Ox O2 Delivery O2 Flow Rate FiO2 07/30/19 08:47 94 Nasal Cannula 3.0 07/30/19 07:00 98.0 63 22 119/75 (90) 98.0 ROS: No Nausea, No Chest Pain, No Abdominal Pain, No Increase Cough General: Alert Lungs: Wheezing, Crackles Cardiovascular: S1, S2 Abdomen: Soft Neuro Exam: Alert Extremities: No Edema Skin: Warm Labs Laboratory Tests Test 07/28/19 11:51 07/29/19 03:40 07/29/19 20:30 07/29/19 22:36 Urine Collection Type Unknown Urine Color Yellow Urine Clarity Cloudy Urine pH 5.5 Urine Specific [place] 1.010 Urine Protein Negative mg/dL (NEG-TRACE) Urine Glucose (UA) Negative mg/dL (NEG) Urine Ketones (Stick) Negative mg/dL (NEG) Urine Blood Small (NEG) Urine Nitrite Negative (NEG) Urine Bilirubin Negative (NEG) Urine Urobilinogen Dipstick 0.2 mg/dL (0.2 mg/dL) Urine Leukocyte Esterase Negative (NEG) Urine RBC Occ /HPF (0-2) Urine WBC Occ /HPF (0-4) Urine Squamous Epithelial Cells Few /LPF Urine Bacteria Few /HPF (0-FEW) White Blood Count 3.1 x10^3/uL (4.0-11.0) Red Blood Count 4.75 x10^6/uL (4.30-5.70) Hemoglobin 15.6 g/dL (13.0-17.5) Hematocrit 48.4 % (39.0-53.0) Mean Corpuscular Volume 102 fL (79-100) Mean Corpuscular Hemoglobin 33 pg (25-35) Mean Corpuscular Hemoglobin Concent 32 g/dL (31-37) Red Cell Distribution Width 13.7 % (11.5-14.5) Platelet Count 164 x10^3/uL (140-400) Erythrocyte Sedimentation Rate 20 (0-15) Sodium Level 142 mmol/L (136-145) Potassium Level 4.9 mmol/L (3.5-5.1) Chloride Level 98 mmol/L (98-107) Carbon Dioxide Level > 45 mmol/L (21-32) Anion Gap (6-14) Blood Urea Nitrogen 34 mg/dL (8-26) Creatinine 0.9 mg/dL (0.7-1.3) Estimated GFR (Cockcroft-Gault) 97.8 BUN/Creatinine Ratio 38 (6-20) Glucose Level 146 mg/dL (70-99) Calcium Level 8.9 mg/dL (8.5-10.1) Total Bilirubin 0.3 mg/dL (0.2-1.0) Aspartate Amino Transf (AST/SGOT) 86 U/L (15-37) Alanine Aminotransferase (ALT/SGPT) 169 U/L (16-63) Alkaline Phosphatase 103 U/L (46-116) Total Protein 7.7 g/dL (6.4-8.2) Albumin 2.9 g/dL (3.4-5.0) Albumin/Globulin Ratio 0.6 (1.0-1.7) O2 Saturation 93 % (92-99) 92 % (92-99) Arterial Blood pH 7.22 (7.35-7.45) 7.32 (7.35-7.45) Arterial Blood pCO2 at Patient Temp 142 mmHg (35-46) 105 mmHg (35-46) Arterial Blood pO2 at Patient Temp 81 mmHg (65-108) 68 mmHg (65-108) Arterial Blood HCO3 56 mmol/L (21-28) 53 mmol/L (21-28) Arterial Blood Base Excess 20 mmol/L (-3-3) 19 mmol/L (-3-3) FiO2 36 40 Test 07/30/19 09:00 O2 Saturation 92 % (92-99) Arterial Blood pH 7.44 (7.35-7.45) Arterial Blood pCO2 at Patient Temp 73 mmHg (35-46) Arterial Blood pO2 at Patient Temp 66 mmHg (65-108) Arterial Blood HCO3 48 mmol/L (21-28) Arterial Blood Base Excess 19 mmol/L (-3-3) FiO2 35% Laboratory Tests Test 07/29/19 20:30 07/29/19 22:36 07/30/19 09:00 O2 Saturation 93 % (92-99) 92 % (92-99) 92 % (92-99) Arterial Blood pH 7.22 (7.35-7.45) 7.32 (7.35-7.45) 7.44 (7.35-7.45) Arterial Blood pCO2 at Patient Temp 142 mmHg (35-46) 105 mmHg (35-46) 73 mmHg (35-46) Arterial Blood pO2 at Patient Temp 81 mmHg (65-108) 68 mmHg (65-108) 66 mmHg (65-108) Arterial Blood HCO3 56 mmol/L (21-28) 53 mmol/L (21-28) 48 mmol/L (21-28) Arterial Blood Base Excess 20 mmol/L (-3-3) 19 mmol/L (-3-3) 19 mmol/L (-3-3) FiO2 36 40 35% Impression . IMPRESSION: 1. Progressive dyspnea secondary to acute exacerbation of chronic obstructive pulmonary disease. ACUTE/CHRONIC HYPERCAPNEA RESP FAILURE 2. Abnormal CT chest revealing centrilobular emphysema and mild nodular infiltrates in the bases. 3. Secondary pulmonary hypertension. 4. Tobacco dependent. 5. Bilateral hilar adenopathy, suspect reactive. Plan . AVOID INCREASE FIO2 DELIVERY WILL NEED 02 A HOME PRN BIPAP REPEAT CT IN 8 WEEKS ANTIBX DB COLBY MOSELEY MD Jul 30, 2019 10:50
[2019-07-30 11:02] VITALS: BP 117/85
--- NOTE | 2019-07-30 11:51 | NUR ---
SS following up with discharge planning. Pt accepted at [facility], ; fax [phone], pending insurance determination but unable to go today due to medical decline. SS will continue to follow for discharge planning.
[2019-07-30 15:00] VITALS: BP 116/67
[2019-07-30 19:00] VITALS: BP 120/64
[2019-07-30] MEDS: LACTOBACILLUS RHAMNOSUS GG 1 CAPSULE. PO SCH (21:18)
[2019-07-30] MEDS: ATORVASTATIN CALCIUM 10 MG TABLET. PO SCH (21:18)
[2019-07-30 23:00] VITALS: BP 98/83
[2019-07-31] MEDS: IPRATRPIUM/ALBUTEROL 0.5/2.5MG 3 ML NEBU. NEB SCH ×6 (00:01→20:01)
[2019-07-31 03:00] VITALS: BP 127/78
[2019-07-31] MEDS: methylPREDNISolone SOD SUCC PF 40 MG/ML VIAL. IV SCH ×3 (06:01→21:03)
[2019-07-31] MEDS: BUDESONIDE 0.5 MG/2 ML NEBU. NEB SCH ×2 (07:20→20:01)
[2019-07-31 07:26] VITALS: BP 128/82
--- NOTE | 2019-07-31 08:34 | PDOC ---
PROGRESS NOTES Chief Complaint Chief Complaint A/P: Acute hypoxic respiratory failure - no formal diagnosis of COPD but has emphysematous changes on CXR and CT Emphysema - by CXR. Will consult pulm. This is an acute COPD exacerbation, will give tong, pulm consultation Smoker - counseled on cessation. Has smoked almost Elevated troponin - denies CP, likely this is demand ischemia, will trend troponins. Advise cardiology of admit and admit to CVC Transaminitis - he stopped drinking 20 years ago, concerning for underlying liver disease. Will trend Pulmonary infiltrates - likely this is interstitial fluid, given lasix in ED Thrombocytopenia - will monitor, uncertain etiology Macrocytosis - no anemia, does not drink. Will check B12 level SEPSIS - present on admission, secondary to acute COPD exacerbation, has Leukopenia - WBC 2.9, tachycardia, tachypnea Tachycardia - concerning with his obvious smoking history and emphysema. D dimer was elevated, had CTPA to check for acute pulmonary embolism, negative FEN - Cardiac diet PPX - lovenox FULL CODE Dispo - inpatient for new hypoxia, likely to SNF in next day History of Present Illness History of Present Illness Mr Dow is an 84yo M w/ PMHx OA, smoker with almost 60 pack year history, ex drinker (stopped 20 years ago) who has not seen a physician in years who presen natanael to [facility] at [facility] ED feeling short of breath for the past 10 months but particularly so the past 2 days. It is worsened by exertion. No recent sick contacts. In ED at [facility] he was found hypoxic to 86% despite 2L NCO2. He underwent CXR showing diffuse bilateral infiltrates and apical emphysematous changes. Labs significant for K of 5.1, Cr 1.1ALT 173, AST 217, platelets 176, MCV 101. D dimer was 586, troponin 0.11. EKG showed sinus tachycardia, RVH criteria, biatrial enlargement and ST elevat ions in julia-lateral leads. He was given 40mg IV lasix in the ED and duonebs with only mild improvement. Still required O2. He lives at home in his . 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 He is retired [employer]. 07/28: CTPA negative for PE. Definitive emphysema. notes that he has been having trouble with word finding difficulty for a few weeks prior to admit. He feels a bit better today. Seen by Neurology, Cardiology, and Pulmonology 07/29: Word finding improved. Seen by RECLAMATION WORKER today. PT/OT due to weakness, recommending SNF. Diuresed, changed to PO lasix now. MRI per neurology as CT shows concern for prior infarcts - confirmed old lacunar infarcts, no new infarcts. 07/30: Last night was confused, ABG 7.22/142/81 --> 7.32/105/68 with BIPAP, then overnight improved to remove it, but he was removing his NCO2, so was placed on venti-mask. He is in good spirits, voice is more clear. He is still clearly somewhat confused. Accepted for placement but his respiratory status is still too tenuous, likely can d/c tomorrow. Will monitor ABG, likely he chronically retains a significant amount of CO2. Speech is much more clear today. ABG has improved to 7.44/73/66. Therapy recommending skilled placement and given his deconditioning from being on BIPAP the past 2 days this is appropriate with all his new diagnoses and need for recovery from COPD exacerbation with new diagnosis of severe COPD. Vitals Vitals Vital Signs Date Time Temp Pulse Resp B/P (MAP) Pulse Ox O2 Delivery O2 Flow Rate FiO2 07/31/19 07:26 97.9 72 20 128/82 (97) 95 Nasal Cannula 3.0 97.9 Physical Exam General: Alert, Oriented X3, Cooperative, No acute distress Heart: Regular rate (SR/ST), Other (distant heart sounds) Lungs: Wheezing, Crackles Abdomen: Soft Extremities: No cyanosis, No edema Skin: No breakdown, No significant lesion Labs LABS Laboratory Tests Test 07/30/19 09:00 07/30/19 11:27 07/30/19 15:35 O2 Saturation 92 % (92-99) Arterial Blood pH 7.44 (7.35-7.45) Arterial Blood pCO2 at Patient Temp 73 mmHg (35-46) Arterial Blood pO2 at Patient Temp 66 mmHg (65-108) Arterial Blood HCO3 48 mmol/L (21-28) Arterial Blood Base Excess 19 mmol/L (-3-3) FiO2 35% Lactic Acid Level 2.1 mmol/L (0.4-2.0) 2.6 mmol/L (0.4-2.0) Comment Review of Relevant I have reviewed the following items paris (where applicable) has been applied. Labs Laboratory Tests Test 07/29/19 20:30 07/29/19 22:36 07/30/19 09:00 07/30/19 11:27 O2 Saturation 93 % (92-99) 92 % (92-99) 92 % (92-99) Arterial Blood pH 7.22 (7.35-7.45) 7.32 (7.35-7.45) 7.44 (7.35-7.45) Arterial Blood pCO2 at Patient Temp 142 mmHg (35-46) 105 mmHg (35-46) 73 mmHg (35-46) Arterial Blood pO2 at Patient Temp 81 mmHg (65-108) 68 mmHg (65-108) 66 mmHg (65-108) Arterial Blood HCO3 56 mmol/L (21-28) 53 mmol/L (21-28) 48 mmol/L (21-28) Arterial Blood Base Excess 20 mmol/L (-3-3) 19 mmol/L (-3-3) 19 mmol/L (-3-3) FiO2 36 40 35% Lactic Acid Level 2.1 mmol/L (0.4-2.0) Test 07/30/19 15:35 Lactic Acid Level 2.6 mmol/L (0.4-2.0) Laboratory Tests Test 07/30/19 09:00 07/30/19 11:27 07/30/19 15:35 O2 Saturation 92 % (92-99) Arterial Blood pH 7.44 (7.35-7.45) Arterial Blood pCO2 at Patient Temp 73 mmHg (35-46) Arterial Blood pO2 at Patient Temp 66 mmHg (65-108) Arterial Blood HCO3 48 mmol/L (21-28) Arterial Blood Base Excess 19 mmol/L (-3-3) FiO2 35% Lactic Acid Level 2.1 mmol/L (0.4-2.0) 2.6 mmol/L (0.4-2.0) Medications Current Medications Ondansetron HCl (Zofran) 4 mg PRN Q4HRS PRN IV NAUSEA/VOMITING; Start 07/27/19 at 16:30 Acetaminophen (Tylenol) 650 mg PRN Q4HRS PRN PO TEMP OVER 100.4F OR MILD PAIN; Start 07/27/19 at 16:30 Docusate Sodium (Colace) 100 mg PRN BID PRN PO CONSTIPATION; Start 07/27/19 at 16:30 Albuterol Sulfate (Ventolin Neb Soln) 2.5 mg PRN Q4HRS PRN NEB SHORTNESS OF BREATH; Start 07/27/19 at 16:30 Albuterol/ Ipratropium (Duoneb) 3 ml Q4H NEB Last administered on 07/31/19at 07:20; Start 07/27/19 at 16:30 Enoxaparin Sodium (Lovenox 40mg Syringe) 40 mg DAILY SQ Last administered on 07/30/19at 08:46; Start 07/28/19 at 09:00 Methylprednisolone Sodium Succinate (SOLU-Medrol 40MG VIAL) 40 mg Q8HRS IV Last administered on 07/31/19at 06:01; Start 07/27/19 at 22:00 Buspirone HCl (Buspar) 5 mg PRN TID PRN PO anxiety; Start 07/27/19 at 16:30 Trazodone HCl (Desyrel) 50 mg PRN QHS PRN PO INSOMNIA; Start 07/27/19 at 16:30 Budesonide (Pulmicort) 0.5 mg RTBID NEB Last administered on 07/31/19at 07:20; Start 07/27/19 at 20:00 Iohexol (Omnipaque 350 Mg/ml) 100 ml 1X ONCE IV Last administered on 07/27/19at 20:50; Start 07/27/19 at 19:15; Stop 07/27/19 at 19:16; Status DC Info (CONTRAST GIVEN -- Rx MONITORING) 1 each PRN DAILY PRN MC SEE COMMENTS; Start 07/27/19 at 19:30; Stop 07/29/19 at 19:29; Status DC Furosemide (Lasix) 40 mg BID92 IVP Last administered on 07/28/19at 15:06; Start 07/28/19 at 09:00; Stop 07/28/19 at 16:16; Status DC Furosemide (Lasix) 40 mg DAILY IVP Last administered on 07/29/19at 09:37; Start 07/29/19 at 09:00; Stop 07/29/19 at 11:58; Status DC Furosemide (Lasix) 20 mg DAILY PO Last administered on 07/30/19 08:46; Start 07/30/19 at 09:00 Atorvastatin Calcium (Lipitor) 10 mg QHS PO Last administered on 07/30/19 21:18; Start 07/29/19 at 21:00 Aspirin (Ecotrin) 81 mg DAILYWBKFT PO Last administered on 07/30/19 08:46; Start 07/30/19 at 08:00 Doxycycline Hyclate 100 mg/ Dextrose 100 ml @ 50 mls/hr 1X ONCE IV Last administered on 07/29/19at 15:18; Start 07/29/19 at 15:00; Stop 07/29/19 at 16:59; Status DC Doxycycline Hyclate (Vibra-Tab) 100 mg BID PO ; Start 07/29/19 at 21:00; Stop 07/29/19 at 21:48; Status DC Lorazepam (Ativan Inj) 0.25 mg PRN Q6HRS PRN IVP ANXIETY / AGITATION Last administered on 07/29/19at 20:16; Start 07/29/19 at 20:15 Lorazepam (Ativan Inj) 0.5 mg PRN Q6HRS PRN IVP ANXIETY / AGITATION; Start 07/29/19 at 20:15 Doxycycline Hyclate 100 mg/ Dextrose 100 ml @ 50 mls/hr Q12HR IV Last administered on 07/30/19 21:19; Start 07/29/19 at 22:00 Lactobacillus Rhamnosus (Culturelle) 1 cap BID PO Last administered on 07/30/19at 21:18; Start 07/30/19 at 21:00 Vitals/I & O Vital Sign - Last 24 Hours 07/30/19 07/30/19 07/30/19 07/30/19 08:46 08:47 11:02 11:58 Temp 97.6 97.6 Pulse 110 Resp 24 B/P (MAP) 117/85 (96) Pulse Ox 94 94 99 O2 Delivery Nasal Cannula Nasal Cannula Venturi Mask Venturi Mask O2 Flow Rate 3.0 3.0 15.0 9.0 07/30/19 07/30/19 07/30/19 07/30/19 15:00 15:46 19:00 19:48 Temp 98.7 98.6 98.7 98.6 Pulse 100 93 Resp 24 28 B/P (MAP) 116/67 (83) 120/64 (82) Pulse Ox 93 93 94 O2 Delivery Nasal Cannula Nasal Cannula Nasal Cannula Nasal Cannula O2 Flow Rate 3.0 3.0 3.0 3.0 07/30/19 07/30/19 07/30/19 07/31/19 20:29 21:52 23:00 00:01 Temp 98.5 98.5 Pulse 77 Resp 24 B/P (MAP) 98/83 (88) Pulse Ox 93 93 98 95 O2 Delivery Nasal Cannula BiPAP/CPAP Nasal Cannula BiPAP/CPAP O2 Flow Rate 3.0 3.0 07/31/19 07/31/19 07/31/19 07/31/19 02:54 03:00 04:59 07:21 Temp 97.2 97.2 Pulse 80 Resp 20 B/P (MAP) 127/78 (94) Pulse Ox 98 94 95 96 O2 Delivery BiPAP/CPAP Nasal Cannula BiPAP/CPAP BiPAP/CPAP O2 Flow Rate 3.0 07/31/19 07:26 Temp 97.9 97.9 Pulse 72 Resp 20 B/P (MAP) 128/82 (97) Pulse Ox 95 O2 Delivery Nasal Cannula O2 Flow Rate 3.0 Intake and Output 07/30/19 07/30/19 07/31/19 14:59 22:59 06:59 Intake Total 0 ml 200 ml Output Total 300 ml 300 ml Balance -300 ml 0 ml -100 ml Nutrition Consultation Dietary Evaluation: Recommendations by RD: Increase Calorie Intake, Protein supplementation Comments: Continue w/regular diet as ordered, honor food preferences, and provide snacks as requested REC Ensure pudding (vanilla) w/dinner Expected Outcomes/Goals: PO intake to meet >75% est needs Malnutrition Findings: Food and Nutrition Intake (Mod: <75% est energy req 7days Body Fat Depletion (Non Severe: Mild Depletion Weight Status: Appropriate NUHA AMANDA MD Jul 31, 2019 08:34
[2019-07-31] MEDS: DOXYCYCLINE HYCLATE 100 MG in IV DEXTROSE 5% 100ML 100 ML IV SCH ×2 (08:48→21:04)
[2019-07-31] MEDS: FUROSEMIDE 20 MG TABLET PO SCH (08:52)
[2019-07-31] MEDS: LACTOBACILLUS RHAMNOSUS GG 1 CAPSULE. PO SCH ×2 (08:52→21:03)
[2019-07-31] MEDS: ENOXAPARIN 40 MG/0.4 ML SYRINGE. SQ SCH (08:53)
[2019-07-31] MEDS: ASPIRIN ENTERIC COATED 81 MG TABLET.DR. PO SCH (08:53)
[2019-07-31 09:22] LABS: BASO % 0 % (0-3); EOS % 0 % (0-3); HEMATOCRIT 49.8 % (39.0-53.0); HEMOGLOBIN 16.2 g/dL (13.0-17.5); LYMPH # 0.5 x10^3/uL (1.0-4.8); LYMPH % 13 % (24-48); MEAN CORPUSCULAR HEMOGLOBIN 32 pg (25-35); MEAN CORPUSCULAR HGB CONC 33 g/dL (31-37); MEAN CORPUSCULAR VOLUME 100 fL (79-100); MONO # 0.5 x10^3/uL (0.0-1.1); MONO % 14 % (0-9); NEUT # 2.6 x10^3/uL (1.8-7.7); NEUT % 73 % (31-73); PLATELET COUNT 137 x10^3/uL (140-400); RED CELL DISTRIBUTION WIDTH 13.7 % (11.5-14.5); WHITE BLOOD COUNT 3.5 x10^3/uL (4.0-11.0)
[2019-07-31 09:57] LABS: ALBUMIN 2.9 g/dL (3.4-5.0); ALBUMIN/GLOBULIN RATIO 0.6 (1.0-1.7); ALK PHOS 87 U/L (46-116); ALT (SGPT) 108 U/L (16-63); AST (SGOT) 31 U/L (15-37); BLOOD UREA NITROGEN 25 mg/dL (8-26); BUN/CREATININE RATIO 31 (6-20); CALCIUM 9.1 mg/dL (8.5-10.1); CHLORIDE 94 mmol/L (98-107); CREATININE 0.8 mg/dL (0.7-1.3); GLUCOSE 120 mg/dL (70-99); MAGNESIUM 2.3 mg/dL (1.8-2.4); POTASSIUM 5.2 mmol/L (3.5-5.1); SODIUM 141 mmol/L (136-145); TOTAL PROTEIN 7.4 g/dL (6.4-8.2)
[2019-07-31 10:01] LABS: CARBON DIOXIDE > 45 mmol/L (21-32)
--- NOTE | 2019-07-31 10:10 | PDOC ---
PROGRESS NOTES Assessment Possible dementia, but he keeps improving, this may all be metabolic. Consider frontal temporal dementia, semantic type, or a variation of Alzheimer's disease. Slightly elevated sedimentation rate, not clinically relevant Plan Treat medical issues Physical and occupational therapy Follow-up in my office in 6-8 weeks Subjective No complaints Objective Vital Signs Date Time Temp Pulse Resp B/P (MAP) Pulse Ox O2 Delivery O2 Flow Rate FiO2 07/31/19 08:00 Bi-pap 07/31/19 08:00 3.0 07/31/19 07:26 97.9 72 20 128/82 (97) 95 97.9 Intake and Output 07/31/19 06:59 Intake Total 200 ml Output Total 600 ml Balance -400 ml Intake Oral 100 ml IV Total 100 ml Output Urine Total 600 ml # Voids 1 # Bowel Movements 1 PHYSICAL EXAM Alert. Oriented to place and person, one day off on the date, normal language PERRL. EOMI. CN: no focal findings. Muscle tone: normal. Muscle strength: 5/5 DTR: 2+ Plantar reflex: flexor Gait: not examined in bed. Sensory exam: no abnormal findings. No cerebellar signs elicited. Review of Relevant I have reviewed the following items paris (where applicable) has been applied. Labs Laboratory Tests Test 07/29/19 20:30 07/29/19 22:36 07/30/19 09:00 07/30/19 11:27 O2 Saturation 93 % (92-99) 92 % (92-99) 92 % (92-99) Arterial Blood pH 7.22 (7.35-7.45) 7.32 (7.35-7.45) 7.44 (7.35-7.45) Arterial Blood pCO2 at Patient Temp 142 mmHg (35-46) 105 mmHg (35-46) 73 mmHg (35-46) Arterial Blood pO2 at Patient Temp 81 mmHg (65-108) 68 mmHg (65-108) 66 mmHg (65-108) Arterial Blood HCO3 56 mmol/L (21-28) 53 mmol/L (21-28) 48 mmol/L (21-28) Arterial Blood Base Excess 20 mmol/L (-3-3) 19 mmol/L (-3-3) 19 mmol/L (-3-3) FiO2 36 40 35% Lactic Acid Level 2.1 mmol/L (0.4-2.0) Test 07/30/19 15:35 07/31/19 09:00 Lactic Acid Level 2.6 mmol/L (0.4-2.0) White Blood Count 3.5 x10^3/uL (4.0-11.0) Red Blood Count 5.00 x10^6/uL (4.30-5.70) Hemoglobin 16.2 g/dL (13.0-17.5) Hematocrit 49.8 % (39.0-53.0) Mean Corpuscular Volume 100 fL (79-100) Mean Corpuscular Hemoglobin 32 pg (25-35) Mean Corpuscular Hemoglobin Concent 33 g/dL (31-37) Red Cell Distribution Width 13.7 % (11.5-14.5) Platelet Count 137 x10^3/uL (140-400) Neutrophils (%) (Auto) 73 % (31-73) Lymphocytes (%) (Auto) 13 % (24-48) Monocytes (%) (Auto) 14 % (0-9) Eosinophils (%) (Auto) 0 % (0-3) Basophils (%) (Auto) 0 % (0-3) Neutrophils # (Auto) 2.6 x10^3/uL (1.8-7.7) Lymphocytes # (Auto) 0.5 x10^3/uL (1.0-4.8) Monocytes # (Auto) 0.5 x10^3/uL (0.0-1.1) Eosinophils # (Auto) 0.0 x10^3/uL (0.0-0.7) Basophils # (Auto) 0.0 x10^3/uL (0.0-0.2) Sodium Level 141 mmol/L (136-145) Potassium Level 5.2 mmol/L (3.5-5.1) Chloride Level 94 mmol/L (98-107) Carbon Dioxide Level > 45 mmol/L (21-32) Anion Gap (6-14) Blood Urea Nitrogen 25 mg/dL (8-26) Creatinine 0.8 mg/dL (0.7-1.3) Estimated GFR (Cockcroft-Gault) 112.0 BUN/Creatinine Ratio 31 (6-20) Glucose Level 120 mg/dL (70-99) Calcium Level 9.1 mg/dL (8.5-10.1) Magnesium Level 2.3 mg/dL (1.8-2.4) Total Bilirubin 1.0 mg/dL (0.2-1.0) Aspartate Amino Transf (AST/SGOT) 31 U/L (15-37) Alanine Aminotransferase (ALT/SGPT) 108 U/L (16-63) Alkaline Phosphatase 87 U/L (46-116) Total Protein 7.4 g/dL (6.4-8.2) Albumin 2.9 g/dL (3.4-5.0) Albumin/Globulin Ratio 0.6 (1.0-1.7) Laboratory Tests Test 07/30/19 11:27 07/30/19 15:35 07/31/19 09:00 Lactic Acid Level 2.1 mmol/L (0.4-2.0) 2.6 mmol/L (0.4-2.0) White Blood Count 3.5 x10^3/uL (4.0-11.0) Red Blood Count 5.00 x10^6/uL (4.30-5.70) Hemoglobin 16.2 g/dL (13.0-17.5) Hematocrit 49.8 % (39.0-53.0) Mean Corpuscular Volume 100 fL (79-100) Mean Corpuscular Hemoglobin 32 pg (25-35) Mean Corpuscular Hemoglobin Concent 33 g/dL (31-37) Red Cell Distribution Width 13.7 % (11.5-14.5) Platelet Count 137 x10^3/uL (140-400) Neutrophils (%) (Auto) 73 % (31-73) Lymphocytes (%) (Auto) 13 % (24-48) Monocytes (%) (Auto) 14 % (0-9) Eosinophils (%) (Auto) 0 % (0-3) Basophils (%) (Auto) 0 % (0-3) Neutrophils # (Auto) 2.6 x10^3/uL (1.8-7.7) Lymphocytes # (Auto) 0.5 x10^3/uL (1.0-4.8) Monocytes # (Auto) 0.5 x10^3/uL (0.0-1.1) Eosinophils # (Auto) 0.0 x10^3/uL (0.0-0.7) Basophils # (Auto) 0.0 x10^3/uL (0.0-0.2) Sodium Level 141 mmol/L (136-145) Potassium Level 5.2 mmol/L (3.5-5.1) Chloride Level 94 mmol/L (98-107) Carbon Dioxide Level > 45 mmol/L (21-32) Anion Gap (6-14) Blood Urea Nitrogen 25 mg/dL (8-26) Creatinine 0.8 mg/dL (0.7-1.3) Estimated GFR (Cockcroft-Gault) 112.0 BUN/Creatinine Ratio 31 (6-20) Glucose Level 120 mg/dL (70-99) Calcium Level 9.1 mg/dL (8.5-10.1) Magnesium Level 2.3 mg/dL (1.8-2.4) Total Bilirubin 1.0 mg/dL (0.2-1.0) Aspartate Amino Transf (AST/SGOT) 31 U/L (15-37) Alanine Aminotransferase (ALT/SGPT) 108 U/L (16-63) Alkaline Phosphatase 87 U/L (46-116) Total Protein 7.4 g/dL (6.4-8.2) Albumin 2.9 g/dL (3.4-5.0) Albumin/Globulin Ratio 0.6 (1.0-1.7) Medications Current Medications Ondansetron HCl (Zofran) 4 mg PRN Q4HRS PRN IV NAUSEA/VOMITING; Start 07/27/19 at 16:30 Acetaminophen (Tylenol) 650 mg PRN Q4HRS PRN PO TEMP OVER 100.4F OR MILD PAIN; Start 07/27/19 at 16:30 Docusate Sodium (Colace) 100 mg PRN BID PRN PO CONSTIPATION; Start 07/27/19 at 16:30 Albuterol Sulfate (Ventolin Neb Soln) 2.5 mg PRN Q4HRS PRN NEB SHORTNESS OF BREATH; Start 07/27/19 at 16:30 Albuterol/ Ipratropium (Duoneb) 3 ml Q4H NEB Last administered on 07/31/19at 07:20; Start 07/27/19 at 16:30 Enoxaparin Sodium (Lovenox 40mg Syringe) 40 mg DAILY SQ Last administered on 07/31/19 08:53; Start 07/28/19 at 09:00 Methylprednisolone Sodium Succinate (SOLU-Medrol 40MG VIAL) 40 mg Q8HRS IV Last administered on 07/31/19at 06:01; Start 07/27/19 at 22:00 Buspirone HCl (Buspar) 5 mg PRN TID PRN PO anxiety; Start 07/27/19 at 16:30 Trazodone HCl (Desyrel) 50 mg PRN QHS PRN PO INSOMNIA; Start 07/27/19 at 16:30 Budesonide (Pulmicort) 0.5 mg RTBID NEB Last administered on 07/31/19 07:20; Start 07/27/19 at 20:00 Iohexol (Omnipaque 350 Mg/ml) 100 ml 1X ONCE IV Last administered on 07/27/19at 20:50; Start 07/27/19 at 19:15; Stop 07/27/19 at 19:16; Status DC Info (CONTRAST GIVEN -- Rx MONITORING) 1 each PRN DAILY PRN MC SEE COMMENTS; Start 07/27/19 at 19:30; Stop 07/29/19 at 19:29; Status DC Furosemide (Lasix) 40 mg BID92 IVP Last administered on 07/28/19at 15:06; Start 07/28/19 at 09:00; Stop 07/28/19 at 16:16; Status DC Furosemide (Lasix) 40 mg DAILY IVP Last administered on 07/29/19at 09:37; Start 07/29/19 at 09:00; Stop 07/29/19 at 11:58; Status DC Furosemide (Lasix) 20 mg DAILY PO Last administered on 07/31/19at 08:52; Start 07/30/19 at 09:00 Atorvastatin Calcium (Lipitor) 10 mg QHS PO Last administered on 07/30/19 21:18; Start 07/29/19 at 21:00 Aspirin (Ecotrin) 81 mg DAILYWBKFT PO Last administered on 07/31/19at 08:53; Start 07/30/19 at 08:00 Doxycycline Hyclate 100 mg/ Dextrose 100 ml @ 50 mls/hr 1X ONCE IV Last administered on 07/29/19at 15:18; Start 07/29/19 at 15:00; Stop 07/29/19 at 16:59; Status DC Doxycycline Hyclate (Vibra-Tab) 100 mg BID PO ; Start 07/29/19 at 21:00; Stop 07/29/19 at 21:48; Status DC Lorazepam (Ativan Inj) 0.25 mg PRN Q6HRS PRN IVP ANXIETY / AGITATION Last administered on 07/29/19at 20:16; Start 07/29/19 at 20:15 Lorazepam (Ativan Inj) 0.5 mg PRN Q6HRS PRN IVP ANXIETY / AGITATION; Start 07/29/19 at 20:15 Doxycycline Hyclate 100 mg/ Dextrose 100 ml @ 50 mls/hr Q12HR IV Last administered on 07/31/19at 08:48; Start 07/29/19 at 22:00 Lactobacillus Rhamnosus (Culturelle) 1 cap BID PO Last administered on 07/31/19at 08:52; Start 07/30/19 at 21:00 Vitals/I & O Vital Sign - Last 24 Hours 07/30/19 07/30/19 07/30/19 07/30/19 11:02 11:58 15:00 15:46 Temp 97.6 98.7 97.6 98.7 Pulse 110 100 Resp 24 24 B/P (MAP) 117/85 (96) 116/67 (83) Pulse Ox 99 93 93 O2 Delivery Venturi Mask Venturi Mask Nasal Cannula Nasal Cannula O2 Flow Rate 15.0 9.0 3.0 3.0 07/30/19 07/30/19 07/30/19 07/30/19 19:00 19:48 20:29 21:52 Temp 98.6 98.6 Pulse 93 Resp 28 B/P (MAP) 120/64 (82) Pulse Ox 94 93 93 O2 Delivery Nasal Cannula Nasal Cannula Nasal Cannula BiPAP/CPAP O2 Flow Rate 3.0 3.0 3.0 07/30/19 07/31/19 07/31/19 07/31/19 23:00 00:01 02:54 03:00 Temp 98.5 97.2 98.5 97.2 Pulse 77 80 Resp 24 20 B/P (MAP) 98/83 (88) 127/78 (94) Pulse Ox 98 95 98 94 O2 Delivery Nasal Cannula BiPAP/CPAP BiPAP/CPAP Nasal Cannula O2 Flow Rate 3.0 3.0 07/31/19 07/31/19 07/31/19 07/31/19 04:59 07:21 07:26 08:00 Temp 97.9 97.9 Pulse 72 Resp 20 B/P (MAP) 128/82 (97) Pulse Ox 95 96 95 O2 Delivery BiPAP/CPAP BiPAP/CPAP Nasal Cannula O2 Flow Rate 3.0 3.0 07/31/19 08:00 O2 Delivery Bi-pap Intake and Output 07/30/19 07/30/19 07/31/19 14:59 22:59 06:59 Intake Total 0 ml 200 ml Output Total 300 ml 300 ml Balance -300 ml 0 ml -100 ml BARBIE ELISE MD Jul 31, 2019 10:10
--- NOTE | 2019-07-31 10:12 | PDOC ---
PULMONARY PROGRESS NOTES Subjective MORE ALERT TODAY SOA WITH MINIMAL EXERTION Vitals Vital Signs Date Time Temp Pulse Resp B/P (MAP) Pulse Ox O2 Delivery O2 Flow Rate FiO2 07/31/19 08:00 Bi-pap 07/31/19 08:00 3.0 07/31/19 07:26 97.9 72 20 128/82 (97) 95 97.9 ROS: No Nausea, No Chest Pain, No Abdominal Pain, No Increase Cough General: Alert Lungs: Wheezing, Crackles Cardiovascular: S1, S2 Abdomen: Soft Neuro Exam: Alert Extremities: No Edema Skin: Warm Labs Laboratory Tests Test 07/29/19 20:30 07/29/19 22:36 07/30/19 09:00 07/30/19 11:27 O2 Saturation 93 % (92-99) 92 % (92-99) 92 % (92-99) Arterial Blood pH 7.22 (7.35-7.45) 7.32 (7.35-7.45) 7.44 (7.35-7.45) Arterial Blood pCO2 at Patient Temp 142 mmHg (35-46) 105 mmHg (35-46) 73 mmHg (35-46) Arterial Blood pO2 at Patient Temp 81 mmHg (65-108) 68 mmHg (65-108) 66 mmHg (65-108) Arterial Blood HCO3 56 mmol/L (21-28) 53 mmol/L (21-28) 48 mmol/L (21-28) Arterial Blood Base Excess 20 mmol/L (-3-3) 19 mmol/L (-3-3) 19 mmol/L (-3-3) FiO2 36 40 35% Lactic Acid Level 2.1 mmol/L (0.4-2.0) Test 07/30/19 15:35 07/31/19 09:00 Lactic Acid Level 2.6 mmol/L (0.4-2.0) White Blood Count 3.5 x10^3/uL (4.0-11.0) Red Blood Count 5.00 x10^6/uL (4.30-5.70) Hemoglobin 16.2 g/dL (13.0-17.5) Hematocrit 49.8 % (39.0-53.0) Mean Corpuscular Volume 100 fL (79-100) Mean Corpuscular Hemoglobin 32 pg (25-35) Mean Corpuscular Hemoglobin Concent 33 g/dL (31-37) Red Cell Distribution Width 13.7 % (11.5-14.5) Platelet Count 137 x10^3/uL (140-400) Neutrophils (%) (Auto) 73 % (31-73) Lymphocytes (%) (Auto) 13 % (24-48) Monocytes (%) (Auto) 14 % (0-9) Eosinophils (%) (Auto) 0 % (0-3) Basophils (%) (Auto) 0 % (0-3) Neutrophils # (Auto) 2.6 x10^3/uL (1.8-7.7) Lymphocytes # (Auto) 0.5 x10^3/uL (1.0-4.8) Monocytes # (Auto) 0.5 x10^3/uL (0.0-1.1) Eosinophils # (Auto) 0.0 x10^3/uL (0.0-0.7) Basophils # (Auto) 0.0 x10^3/uL (0.0-0.2) Sodium Level 141 mmol/L (136-145) Potassium Level 5.2 mmol/L (3.5-5.1) Chloride Level 94 mmol/L (98-107) Carbon Dioxide Level > 45 mmol/L (21-32) Anion Gap (6-14) Blood Urea Nitrogen 25 mg/dL (8-26) Creatinine 0.8 mg/dL (0.7-1.3) Estimated GFR (Cockcroft-Gault) 112.0 BUN/Creatinine Ratio 31 (6-20) Glucose Level 120 mg/dL (70-99) Calcium Level 9.1 mg/dL (8.5-10.1) Magnesium Level 2.3 mg/dL (1.8-2.4) Total Bilirubin 1.0 mg/dL (0.2-1.0) Aspartate Amino Transf (AST/SGOT) 31 U/L (15-37) Alanine Aminotransferase (ALT/SGPT) 108 U/L (16-63) Alkaline Phosphatase 87 U/L (46-116) Total Protein 7.4 g/dL (6.4-8.2) Albumin 2.9 g/dL (3.4-5.0) Albumin/Globulin Ratio 0.6 (1.0-1.7) Laboratory Tests Test 07/30/19 11:27 07/30/19 15:35 07/31/19 09:00 Lactic Acid Level 2.1 mmol/L (0.4-2.0) 2.6 mmol/L (0.4-2.0) White Blood Count 3.5 x10^3/uL (4.0-11.0) Red Blood Count 5.00 x10^6/uL (4.30-5.70) Hemoglobin 16.2 g/dL (13.0-17.5) Hematocrit 49.8 % (39.0-53.0) Mean Corpuscular Volume 100 fL (79-100) Mean Corpuscular Hemoglobin 32 pg (25-35) Mean Corpuscular Hemoglobin Concent 33 g/dL (31-37) Red Cell Distribution Width 13.7 % (11.5-14.5) Platelet Count 137 x10^3/uL (140-400) Neutrophils (%) (Auto) 73 % (31-73) Lymphocytes (%) (Auto) 13 % (24-48) Monocytes (%) (Auto) 14 % (0-9) Eosinophils (%) (Auto) 0 % (0-3) Basophils (%) (Auto) 0 % (0-3) Neutrophils # (Auto) 2.6 x10^3/uL (1.8-7.7) Lymphocytes # (Auto) 0.5 x10^3/uL (1.0-4.8) Monocytes # (Auto) 0.5 x10^3/uL (0.0-1.1) Eosinophils # (Auto) 0.0 x10^3/uL (0.0-0.7) Basophils # (Auto) 0.0 x10^3/uL (0.0-0.2) Sodium Level 141 mmol/L (136-145) Potassium Level 5.2 mmol/L (3.5-5.1) Chloride Level 94 mmol/L (98-107) Carbon Dioxide Level > 45 mmol/L (21-32) Anion Gap (6-14) Blood Urea Nitrogen 25 mg/dL (8-26) Creatinine 0.8 mg/dL (0.7-1.3) Estimated GFR (Cockcroft-Gault) 112.0 BUN/Creatinine Ratio 31 (6-20) Glucose Level 120 mg/dL (70-99) Calcium Level 9.1 mg/dL (8.5-10.1) Magnesium Level 2.3 mg/dL (1.8-2.4) Total Bilirubin 1.0 mg/dL (0.2-1.0) Aspartate Amino Transf (AST/SGOT) 31 U/L (15-37) Alanine Aminotransferase (ALT/SGPT) 108 U/L (16-63) Alkaline Phosphatase 87 U/L (46-116) Total Protein 7.4 g/dL (6.4-8.2) Albumin 2.9 g/dL (3.4-5.0) Albumin/Globulin Ratio 0.6 (1.0-1.7) Impression . IMPRESSION: 1. Progressive dyspnea secondary to acute exacerbation of chronic obstructive pulmonary disease. ACUTE/CHRONIC HYPERCAPNEA RESP FAILURE 2. Abnormal CT chest revealing centrilobular emphysema and mild nodular infiltrates in the bases. 3. Secondary pulmonary hypertension. 4. Tobacco dependent. 5. Bilateral hilar adenopathy, suspect reactive. 6. ENCE SEC TO HYPERCAPNEA Plan . ABG NOTED BIPAP QHS AVOID INCREASE FIO2 DELIVERY WILL NEED 02 A HOME PRN BIPAP REPEAT CT IN 8 WEEKS ANTIBX DB COLBY MOSELEY MD Jul 31, 2019 10:12
[2019-07-31 10:27] VITALS: BP 109/72
--- NOTE | 2019-07-31 14:12 | NUR ---
SS following up with discharge planning. SS received notification that [facility] has declined pt for assisted unit. Peer to peer option given and SS provided peer to peer information to Dr. Su. Peer to peer to be completed by 1500 today by contacting [phone] Su agreeable to completing peer to peer. SS will continue to follow for discharge planning.
[2019-07-31 14:24] VITALS: BP 97/54
[2019-07-31 15:20] LABS: BASE EXCESS ABG 16 mmol/L (-3-3); HCO3 ABG 44 mmol/L (21-28); PO2 ABG 64 mmHg (65-108); SAT O2 ABG 92 % (92-99)
[2019-07-31 15:40] LABS: FIO2 ABG 28%; PCO2 ABG 64 mmHg (35-46)
--- NOTE | 2019-07-31 15:55 | NUR ---
SS following up with discharge planning. SS received notification from Dr. Su that [facility] overturned denial for prison unit. SS left voicemail for Marley at [facility], ; fax [phone]. SS will fax discharge orders once received. Pt's RN notified.
--- NOTE | 2019-07-31 16:28 | NUR ---
SS following up with discharge planning. Pt's family requested to meet with SS to complete DPOA paperwork. DPOA paperwork completed and notarized. SS notified pt and family that insurance overturned denial for [facility] and that SS was trying to reach [facility] and have left messages. SS notified pt and family that once [facility] contacts us we would make arrangements for discharge. Pt's RN notified.
[2019-07-31 19:00] VITALS: BP 118/73
[2019-07-31] MEDS: ATORVASTATIN CALCIUM 10 MG TABLET. PO SCH (21:03)
[2019-07-31 23:00] VITALS: BP 110/79
[2019-08-01 03:00] VITALS: BP 116/68
[2019-08-01] MEDS: IPRATRPIUM/ALBUTEROL 0.5/2.5MG 3 ML NEBU. NEB SCH ×3 (03:51→11:45)
[2019-08-01] MEDS: methylPREDNISolone SOD SUCC PF 40 MG/ML VIAL. IV SCH ×2 (06:00→14:32)
[2019-08-01 07:05] VITALS: BP 109/73
[2019-08-01] MEDS: BUDESONIDE 0.5 MG/2 ML NEBU. NEB SCH (07:39)
[2019-08-01] MEDS: LACTOBACILLUS RHAMNOSUS GG 1 CAPSULE. PO SCH (08:44)
[2019-08-01] MEDS: ASPIRIN ENTERIC COATED 81 MG TABLET.DR. PO SCH (08:44)
[2019-08-01] MEDS: ENOXAPARIN 40 MG/0.4 ML SYRINGE. SQ SCH (08:45)
[2019-08-01] MEDS: FUROSEMIDE 20 MG TABLET PO SCH (08:45)
[2019-08-01] MEDS: DOXYCYCLINE HYCLATE 100 MG in IV DEXTROSE 5% 100ML 100 ML IV SCH (08:47)
[2019-08-01 10:27] VITALS: BP 111/64
[2019-08-01] MEDS ORDERED: BUSP5TAB PO (12:31)
[2019-08-01] MEDS ORDERED: BUDE0.5A NEB (12:31)
[2019-08-01] MEDS ORDERED: PRED20TA PO (12:31)
[2019-08-01] MEDS ORDERED: ATOR10TA60 PO (12:31)
[2019-08-01] MEDS ORDERED: ASPI-612 PO (12:31)
[2019-08-01] MEDS ORDERED: FURO20TA3 PO (12:31)
[2019-08-01] MEDS ORDERED: IPRA3AMP29 NEB (12:31)
[2019-08-01] MEDS ORDERED: DOXY100C14 PO (12:31)
[2019-08-01] MEDS ORDERED: TRAZ-118 PO (12:31)
[2019-08-01] MEDS ORDERED: ACET325T9 PO (12:31)
--- NOTE | 2019-08-01 12:37 | SNU/HH DC ---
DISCHARGE ORDERS DISCHARGE INFORMATION: DISCHARGE DATE: Aug 01, 2019 FINAL DIAGNOSIS Acute hypoxic hypercapnic respiratory failure CONDITION ON DISCHARGE: Stable CODE STATUS: Code Status: Full DETENTION: SNF STAY <30 DAYS: Yes POST DISCHARGE ORDERS: ACTIVITY ORDERS: Resume previous activity WEIGHT BEARING STATUS: Full weight bearing DIET AFTER DISCHARGE: Cardiac CHECKS AFTER DISCHARGE: CHECKS AFTER DISCHARGE: Check blood press - daily, Check your Temp as needed TREATMENT/EQUIPMENT ORDERS: RESPIRATORY EQUIPMENT NEEDED: Oxygen (2L), Nebulizer, BiPAP (12/5 QHS, 40% FiO2) Physical Therapy For: Evalulation/Treatment Occupational Therapy For: Evaluation/Treatment DISCHARGE MEDICATIONS: Home Meds Active Scripts Doxycycline Monohydrate (DOXYCYCLINE MONOHYDRATE) 100 Mg Capsule, 1 CAP PO BID for COPD for 5 Days, #10 CAP Prov:NUHA AMANDA MD 08/01/19 Prednisone (PREDNISONE) 20 Mg Tablet, 1 TAB PO DAILY for COPD for 5 Days, #5 TAB Prov:NUHA AMANDA MD 08/01/19 Furosemide (FUROSEMIDE) 20 Mg Tablet, 20 MG PO DAILY for Pulmonary edema for 30 Days, #30 TAB Prov:NUHA AMANDA MD 08/01/19 Budesonide (BUDESONIDE) 0.5 Mg/2 Ml Ampul.neb, 0.5 MG NEB RTBID for COPD for 30 Days, #60 EACH Prov:NUHA AMANDA MD 08/01/19 Buspirone Hcl (BUSPIRONE HCL) 5 Mg Tablet, 5 MG PO PRN TID PRN for anxiety for 30 Days, #90 TAB Prov:NUHA AMANDA MD 08/01/19 Trazodone Hcl (TRAZODONE HCL) 50 Mg Tablet, 50 MG PO PRN QHS PRN for INSOMNIA for 30 Days, #30 TAB Prov:NUHA AMANDA MD 08/01/19 Acetaminophen (TYLENOL) 325 Mg Tablet, 650 MG PO PRN Q4HRS PRN for TEMP OVER 100.4F OR MILD PAIN for 30 Days, #120 TAB Prov:NUHA AMANDA MD 08/01/19 Aspirin (ASPIRIN EC) 81 Mg Tablet.dr, 81 MG PO DAILYWBKFT for CAD for 30 Days, #30 TAB.SR Prov:NUHA AMANDA MD 08/01/19 Atorvastatin Calcium (ATORVASTATIN CALCIUM) 10 Mg Tablet, 10 MG PO QHS for HLD for 30 Days, #30 TAB Prov:NUHA AMANDA MD 08/01/19 Ipratropium/Albuterol Sulfate (DUONEB 0.5-3(2.5) MG/3 ML) 3 Ml Ampul.neb, 3 ML NEB Q4H for COPD for 30 Days, #180 EACH Prov:NUHA AMANDA MD 08/01/19 NUHA AMANDA MD Aug 01, 2019 12:37
--- NOTE | 2019-08-01 12:45 | PDOC ---
PROGRESS NOTES Chief Complaint Chief Complaint A/P: Acute hypoxic respiratory failure - no formal diagnosis of COPD but has emphysematous changes on CXR and CT Emphysema - by CXR. Will consult pulm. This is an acute COPD exacerbation, will give tong, pulm consultation Smoker - counseled on cessation. Has smoked almost Elevated troponin - denies CP, likely this is demand ischemia, will trend troponins. Advise cardiology of admit and admit to [facility] Transaminitis - he stopped drinking 20 years ago, concerning for underlying liver disease. Will trend Pulmonary infiltrates - likely this is interstitial fluid, given lasix in ED Thrombocytopenia - will monitor, uncertain etiology Macrocytosis - no anemia, does not drink. Will check B12 level SEPSIS - present on admission, secondary to acute COPD exacerbation, has Leukopenia - WBC 2.9, tachycardia, tachypnea Tachycardia - concerning with his obvious smoking history and emphysema. D dimer was elevated, had CTPA to check for acute pulmonary embolism, negative FEN - Cardiac diet PPX - lovenox FULL CODE Dispo - inpatient for new hypoxia, likely to SNF in next day History of Present Illness History of Present Illness Mr Dow is an 84yo M w/ PMHx OA, smoker with almost 60 pack year history, ex drinker (stopped 20 years ago) who has not seen a physician in years who presen natanael to [facility] at [facility] ED feeling short of breath for the past 10 months but particularly so the past 2 days. It is worsened by exertion. No recent sick contacts. In ED at [facility] he was found hypoxic to 86% despite 2L NCO2. He underwent CXR showing diffuse bilateral infiltrates and apical emphysematous changes. Labs significant for K of 5.1, Cr 1.1ALT 173, AST 217, platelets 176, MCV 101. D dimer was 586, troponin 0.11. EKG showed sinus tachycardia, RVH criteria, biatrial enlargement and ST elevat ions in julia-lateral leads. He was given 40mg IV lasix in the ED and duonebs with only mild improvement. Still required O2. He lives at home in his . 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 He is retired [employer]. 07/28: CTPA negative for PE. Definitive emphysema. notes that he has been having trouble with word finding difficulty for a few weeks prior to admit. He feels a bit better today. Seen by Neurology, Cardiology, and Pulmonology 07/29: Word finding improved. Seen by PARTNER MANAGER today. PT/OT due to weakness, recommending SNF. Diuresed, changed to PO lasix now. MRI per neurology as CT shows concern for prior infarcts - confirmed old lacunar infarcts, no new infarcts. 07/30: Last night was confused, ABG 7.22/142/81 --> 7.32/105/68 with BIPAP, then overnight improved to remove it, but he was removing his NCO2, so was placed on venti-mask. He is in good spirits, voice is more clear. He is still clearly somewhat confused. Accepted for placement but his respiratory status is still too tenuous, likely can d/c tomorrow. Will monitor ABG, likely he chronically retains a significant amount of CO2. Speech is much more clear today. ABG has improved to 7.44/73/66. Therapy recommending skilled placement and given his deconditioning from being on BIPAP the past 2 days this is appropriate with all his new diagnoses and need for recovery from COPD exacerbation with new diagnosis of severe COPD. Vitals Vitals Vital Signs Date Time Temp Pulse Resp B/P (MAP) Pulse Ox O2 Delivery O2 Flow Rate FiO2 08/01/19 11:47 96 Nasal Cannula 2.0 08/01/19 10:27 98.1 89 24 111/64 (80) 98.1 Physical Exam General: Alert, Oriented X3, Cooperative, No acute distress Heart: Regular rate (SR/ST), Other (distant heart sounds) Lungs: Wheezing, Crackles Abdomen: Soft Extremities: No cyanosis, No edema Skin: No breakdown, No significant lesion Labs LABS Laboratory Tests Test 07/31/19 15:00 O2 Saturation 92 % (92-99) Arterial Blood pH 7.45 (7.35-7.45) Arterial Blood pCO2 at Patient Temp 64 mmHg (35-46) Arterial Blood pO2 at Patient Temp 64 mmHg (65-108) Arterial Blood HCO3 44 mmol/L (21-28) Arterial Blood Base Excess 16 mmol/L (-3-3) FiO2 28% Comment Review of Relevant I have reviewed the following items paris (where applicable) has been applied. Labs Laboratory Tests Test 07/30/19 15:35 07/31/19 09:00 07/31/19 15:00 Lactic Acid Level 2.6 mmol/L (0.4-2.0) White Blood Count 3.5 x10^3/uL (4.0-11.0) Red Blood Count 5.00 x10^6/uL (4.30-5.70) Hemoglobin 16.2 g/dL (13.0-17.5) Hematocrit 49.8 % (39.0-53.0) Mean Corpuscular Volume 100 fL (79-100) Mean Corpuscular Hemoglobin 32 pg (25-35) Mean Corpuscular Hemoglobin Concent 33 g/dL (31-37) Red Cell Distribution Width 13.7 % (11.5-14.5) Platelet Count 137 x10^3/uL (140-400) Neutrophils (%) (Auto) 73 % (31-73) Lymphocytes (%) (Auto) 13 % (24-48) Monocytes (%) (Auto) 14 % (0-9) Eosinophils (%) (Auto) 0 % (0-3) Basophils (%) (Auto) 0 % (0-3) Neutrophils # (Auto) 2.6 x10^3/uL (1.8-7.7) Lymphocytes # (Auto) 0.5 x10^3/uL (1.0-4.8) Monocytes # (Auto) 0.5 x10^3/uL (0.0-1.1) Eosinophils # (Auto) 0.0 x10^3/uL (0.0-0.7) Basophils # (Auto) 0.0 x10^3/uL (0.0-0.2) Sodium Level 141 mmol/L (136-145) Potassium Level 5.2 mmol/L (3.5-5.1) Chloride Level 94 mmol/L (98-107) Carbon Dioxide Level > 45 mmol/L (21-32) Anion Gap (6-14) Blood Urea Nitrogen 25 mg/dL (8-26) Creatinine 0.8 mg/dL (0.7-1.3) Estimated GFR (Cockcroft-Gault) 112.0 BUN/Creatinine Ratio 31 (6-20) Glucose Level 120 mg/dL (70-99) Calcium Level 9.1 mg/dL (8.5-10.1) Magnesium Level 2.3 mg/dL (1.8-2.4) Total Bilirubin 1.0 mg/dL (0.2-1.0) Aspartate Amino Transf (AST/SGOT) 31 U/L (15-37) Alanine Aminotransferase (ALT/SGPT) 108 U/L (16-63) Alkaline Phosphatase 87 U/L (46-116) Total Protein 7.4 g/dL (6.4-8.2) Albumin 2.9 g/dL (3.4-5.0) Albumin/Globulin Ratio 0.6 (1.0-1.7) O2 Saturation 92 % (92-99) Arterial Blood pH 7.45 (7.35-7.45) Arterial Blood pCO2 at Patient Temp 64 mmHg (35-46) Arterial Blood pO2 at Patient Temp 64 mmHg (65-108) Arterial Blood HCO3 44 mmol/L (21-28) Arterial Blood Base Excess 16 mmol/L (-3-3) FiO2 28% Laboratory Tests Test 07/31/19 15:00 O2 Saturation 92 % (92-99) Arterial Blood pH 7.45 (7.35-7.45) Arterial Blood pCO2 at Patient Temp 64 mmHg (35-46) Arterial Blood pO2 at Patient Temp 64 mmHg (65-108) Arterial Blood HCO3 44 mmol/L (21-28) Arterial Blood Base Excess 16 mmol/L (-3-3) FiO2 28% Microbiology 07/30/19 Blood Culture - Preliminary, Resulted NO GROWTH AFTER 2 DAYS Medications Current Medications Ondansetron HCl (Zofran) 4 mg PRN Q4HRS PRN IV NAUSEA/VOMITING; Start 07/27/19 at 16:30 Acetaminophen (Tylenol) 650 mg PRN Q4HRS PRN PO TEMP OVER 100.4F OR MILD PAIN; Start 07/27/19 at 16:30 Docusate Sodium (Colace) 100 mg PRN BID PRN PO CONSTIPATION; Start 07/27/19 at 16:30 Albuterol Sulfate (Ventolin Neb Soln) 2.5 mg PRN Q4HRS PRN NEB SHORTNESS OF BREATH; Start 07/27/19 at 16:30 Albuterol/ Ipratropium (Duoneb) 3 ml Q4H NEB Last administered on 08/01/19at 11:45; Start 07/27/19 at 16:30 Enoxaparin Sodium (Lovenox 40mg Syringe) 40 mg DAILY SQ Last administered on 08/01/19 08:45; Start 07/28/19 at 09:00 Methylprednisolone Sodium Succinate (SOLU-Medrol 40MG VIAL) 40 mg Q8HRS IV Last administered on 08/01/19at 06:00; Start 07/27/19 at 22:00 Buspirone HCl (Buspar) 5 mg PRN TID PRN PO anxiety; Start 07/27/19 at 16:30 Trazodone HCl (Desyrel) 50 mg PRN QHS PRN PO INSOMNIA; Start 07/27/19 at 16:30 Budesonide (Pulmicort) 0.5 mg RTBID NEB Last administered on 08/01/19 07:39; Start 07/27/19 at 20:00 Iohexol (Omnipaque 350 Mg/ml) 100 ml 1X ONCE IV Last administered on 07/27/19at 20:50; Start 07/27/19 at 19:15; Stop 07/27/19 at 19:16; Status DC Info (CONTRAST GIVEN -- Rx MONITORING) 1 each PRN DAILY PRN MC SEE COMMENTS; Start 07/27/19 at 19:30; Stop 07/29/19 at 19:29; Status DC Furosemide (Lasix) 40 mg [id number] IVP Last administered on 07/28/19 15:06; Start 07/28/19 at 09:00; Stop 07/28/19 at 16:16; Status DC Furosemide (Lasix) 40 mg DAILY IVP Last administered on 07/29/19 09:37; Start 07/29/19 at 09:00; Stop 07/29/19 at 11:58; Status DC Furosemide (Lasix) 20 mg DAILY PO Last administered on 08/01/19 08:45; Start 07/30/19 at 09:00 Atorvastatin Calcium (Lipitor) 10 mg QHS PO Last administered on 07/31/19 21:03; Start 07/29/19 at 21:00 Aspirin (Ecotrin) 81 mg DAILYWBKFT PO Last administered on 08/01/19 08:44; Start 07/30/19 at 08:00 Doxycycline Hyclate 100 mg/ Dextrose 100 ml @ 50 mls/hr 1X ONCE IV Last administered on 10/30/19at 15:18; Start 07/29/19 at 15:00; Stop 07/29/19 at 16:59; Status DC Doxycycline Hyclate (Vibra-Tab) 100 mg BID PO ; Start 07/29/19 at 21:00; Stop 07/29/19 at 21:48; Status DC Lorazepam (Ativan Inj) 0.25 mg PRN Q6HRS PRN IVP ANXIETY / AGITATION Last administered on 07/29/19at 20:16; Start 07/29/19 at 20:15; Stop 07/31/19 at 11:19; Status DC Lorazepam (Ativan Inj) 0.5 mg PRN Q6HRS PRN IVP ANXIETY / AGITATION; Start 07/29/19 at 20:15; Stop 07/31/19 at 11:19; Status DC Doxycycline Hyclate 100 mg/ Dextrose 100 ml @ 50 mls/hr Q12HR IV Last administered on 08/01/19at 08:47; Start 07/29/19 at 22:00 Lactobacillus Rhamnosus (Culturelle) 1 cap BID PO Last administered on 08/01/19at 08:44; Start 07/30/19 at 21:00 Active Scripts Active Doxycycline Monohydrate 100 Mg Capsule 1 Cap PO BID 5 Days Prednisone 20 Mg Tablet 1 Tab PO DAILY 5 Days Furosemide 20 Mg Tablet 20 Mg PO DAILY 30 Days Budesonide 0.5 Mg/2 Ml Ampul.neb 0.5 Mg NEB RTBID 30 Days Buspirone Hcl 5 Mg Tablet 5 Mg PO PRN TID PRN 30 Days Trazodone Hcl 50 Mg Tablet 50 Mg PO PRN QHS PRN 30 Days Tylenol (Acetaminophen) 325 Mg Tablet 650 Mg PO PRN Q4HRS PRN 30 Days Aspirin Ec (Aspirin) 81 Mg Tablet.dr 81 Mg PO DAILYWBKFT 30 Days Atorvastatin Calcium 10 Mg Tablet 10 Mg PO QHS 30 Days Duoneb 0.5-3(2.5) Mg/3 Ml (Albuterol/Ipratropium) 3 Ml Ampul.neb 3 Ml NEB Q4H 30 Days Vitals/I & O Vital Sign - Last 24 Hours 07/31/19 07/31/19 07/31/19 07/31/19 14:24 15:10 19:00 20:00 Temp 98.8 98.4 98.8 98.4 Pulse 98 97 Resp 20 24 B/P (MAP) 97/54 (68) 118/73 (88) Pulse Ox 95 95 91 O2 Delivery Nasal Cannula Nasal Cannula Nasal Cannula Nasal Cannula O2 Flow Rate 3.0 2.0 3.0 2.0 07/31/19 07/31/19 07/31/19 08/01/19 20:03 23:00 23:40 01:26 Temp 98.4 98.4 Pulse 93 Resp 32 B/P (MAP) 110/79 (89) Pulse Ox 93 95 100 100 O2 Delivery Nasal Cannula Nasal Cannula BiPAP/CPAP BiPAP/CPAP O2 Flow Rate 2.0 3.0 08/01/19 08/01/19 08/01/19 08/01/19 03:00 03:00 03:36 07:05 Temp 97.9 97.9 97.5 97.9 97.9 97.5 Pulse 86 86 87 Resp 24 24 24 B/P (MAP) 116/68 (84) 116/68 (84) 109/73 (85) Pulse Ox 96 96 98 97 O2 Delivery Nasal Cannula Nasal Cannula BiPAP/CPAP BiPAP/CPAP O2 Flow Rate 3.0 3.0 08/01/19 08/01/19 08/01/19 08/01/19 07:41 08:00 10:27 11:47 Temp 98.1 98.1 Pulse 89 Resp 24 B/P (MAP) 111/64 (80) Pulse Ox 98 97 96 O2 Delivery Nasal Cannula Nasal Cannula Nasal Cannula Nasal Cannula O2 Flow Rate 3.0 3.0 3.0 2.0 Intake and Output 07/31/19 07/31/19 08/01/19 15:00 23:00 07:00 Intake Total 500 ml 100 ml Output Total 150 ml 250 ml Balance -150 ml 250 ml 100 ml Nutrition Consultation Dietary Evaluation: Recommendations by RD: Increase Calorie Intake, Protein supplementation Comments: Continue w/regular diet as ordered, honor food preferences, and provide snacks as requested Continue w/Ensure pudding (vanilla) w/dinner Expected Outcomes/Goals: PO intake to meet >75% est needs - met at times, goal ongoing Malnutrition Findings: Food and Nutrition Intake (Mod: <75% est energy req 7days Body Fat Depletion (Non Severe: Mild Depletion Weight Status: Appropriate NUHA AMANDA MD 2, 2019 12:45
--- NOTE | 2019-08-01 12:48 | PDOC3 ---
Discharge Summary Visit Information Date of Admission: Jul 27, 2019 Date of Discharge: Aug 01, 2019 Admitting Diagnosis: Acute hypoxic and hypercapnic respiratory failure Final Diagnosis Acute hypoxic and hypercapnic respiratory failure Brief Hospital Course Allergies Allergies Coded Allergies Type Severity Reaction Last Updated Verified No Known Drug Allergies 07/27/19 No Vital Signs Vital Signs Date Time Temp Pulse Resp B/P (MAP) Pulse Ox O2 Delivery O2 Flow Rate FiO2 08/01/19 11:47 96 Nasal Cannula 2.0 08/01/19 10:27 98.1 89 24 111/64 (80) 98.1 Lab Results Laboratory Tests Test 07/30/19 15:35 07/31/19 09:00 07/31/19 15:00 Lactic Acid Level 2.6 mmol/L (0.4-2.0) White Blood Count 3.5 x10^3/uL (4.0-11.0) Red Blood Count 5.00 x10^6/uL (4.30-5.70) Hemoglobin 16.2 g/dL (13.0-17.5) Hematocrit 49.8 % (39.0-53.0) Mean Corpuscular Volume 100 fL (79-100) Mean Corpuscular Hemoglobin 32 pg (25-35) Mean Corpuscular Hemoglobin Concent 33 g/dL (31-37) Red Cell Distribution Width 13.7 % (11.5-14.5) Platelet Count 137 x10^3/uL (140-400) Neutrophils (%) (Auto) 73 % (31-73) Lymphocytes (%) (Auto) 13 % (24-48) Monocytes (%) (Auto) 14 % (0-9) Eosinophils (%) (Auto) 0 % (0-3) Basophils (%) (Auto) 0 % (0-3) Neutrophils # (Auto) 2.6 x10^3/uL (1.8-7.7) Lymphocytes # (Auto) 0.5 x10^3/uL (1.0-4.8) Monocytes # (Auto) 0.5 x10^3/uL (0.0-1.1) Eosinophils # (Auto) 0.0 x10^3/uL (0.0-0.7) Basophils # (Auto) 0.0 x10^3/uL (0.0-0.2) Sodium Level 141 mmol/L (136-145) Potassium Level 5.2 mmol/L (3.5-5.1) Chloride Level 94 mmol/L (98-107) Carbon Dioxide Level > 45 mmol/L (21-32) Anion Gap (6-14) Blood Urea Nitrogen 25 mg/dL (8-26) Creatinine 0.8 mg/dL (0.7-1.3) Estimated GFR (Cockcroft-Gault) 112.0 BUN/Creatinine Ratio 31 (6-20) Glucose Level 120 mg/dL (70-99) Calcium Level 9.1 mg/dL (8.5-10.1) Magnesium Level 2.3 mg/dL (1.8-2.4) Total Bilirubin 1.0 mg/dL (0.2-1.0) Aspartate Amino Transf (AST/SGOT) 31 U/L (15-37) Alanine Aminotransferase (ALT/SGPT) 108 U/L (16-63) Alkaline Phosphatase 87 U/L (46-116) Total Protein 7.4 g/dL (6.4-8.2) Albumin 2.9 g/dL (3.4-5.0) Albumin/Globulin Ratio 0.6 (1.0-1.7) O2 Saturation 92 % (92-99) Arterial Blood pH 7.45 (7.35-7.45) Arterial Blood pCO2 at Patient Temp 64 mmHg (35-46) Arterial Blood pO2 at Patient Temp 64 mmHg (65-108) Arterial Blood HCO3 44 mmol/L (21-28) Arterial Blood Base Excess 16 mmol/L (-3-3) FiO2 28% Laboratory Tests Test 07/31/19 15:00 O2 Saturation 92 % (92-99) Arterial Blood pH 7.45 (7.35-7.45) Arterial Blood pCO2 at Patient Temp 64 mmHg (35-46) Arterial Blood pO2 at Patient Temp 64 mmHg (65-108) Arterial Blood HCO3 44 mmol/L (21-28) Arterial Blood Base Excess 16 mmol/L (-3-3) FiO2 28% Brief Hospital Course Mr Dow is an 84yo M w/ PMHx OA, smoker with almost 60 pack year history, ex drinker (stopped 20 years ago) who has not seen a physician in years who presented to [facility] ED feeling short of breath for the past 10 months but particularly so the past 2 days. It is worsened by exertion. No recent sick contacts. In ED at [facility] he was found hypoxic to 86% despite 2L NCO2. He underwent CXR showing diffuse bilateral infiltrates and apical emphysematous changes. Labs significant for K of 5.1, Cr 1.1ALT 173, AST 217, platelets 176, MCV 101. D dimer was 586, troponin 0.11. EKG showed sinus tachycardia, RVH criteria, biatrial enlargement and ST elevations in julia-lateral leads. He was given 40mg IV lasix in the ED and duonebs with only mild improvement. Still required O2. He lives at home in his . 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 He is retired [employer]. 07/28: CTPA negative for PE. Definitive emphysema. notes that he has been having trouble with word finding difficulty for a few weeks prior to admit. He feels a bit better today. Seen by Neurology, Cardiology, and Pulmonology 07/29: Word finding improved. Seen by RAIL SIGNAL DESIGNER today. PT/OT due to weakness, recommending SNF. Diuresed, changed to PO lasix now. MRI per neurology as CT shows concern for prior infarcts - confirmed old lacunar infarcts, no new infarcts. 07/30: Last night was confused, ABG 7.22/142/81 --> 7.32/105/68 with BIPAP, then overnight improved to remove it, but he was removing his NCO2, so was placed on venti-mask. He is in good spirits, voice is more clear. He is still clearly somewhat confused. Accepted for placement but his respiratory status is still too tenuous, likely can d/c tomorrow. Will monitor ABG, likely he chronically retains a significant amount of CO2. Speech is much more clear today. ABG has improved to 7.44/73/66. Therapy recommending skilled placement and given his deconditioning from being on BIPAP the past 2 days this is appropriate with all his new diagnoses and need for recovery from COPD exacerbation with new diagnosis of severe COPD. Plan to rehab at SNF A/P: Acute hypoxic respiratory failure - no formal diagnosis of COPD but has emphysematous changes on CXR and CT Emphysema - by CXR. Will consult pulm. This is an acute COPD exacerbation, will give nebs, pulm consultation Smoker - counseled on cessation. Has smoked almost Elevated troponin - denies CP, likely this is demand ischemia, will trend troponins. Advise cardiology of admit and admit to [facility] Transaminitis - he stopped drinking 20 years ago, concerning for underlying liver disease. Will trend Pulmonary infiltrates - likely this is interstitial fluid, given lasix in ED Thrombocytopenia - will monitor, uncertain etiology Macrocytosis - no anemia, does not drink. Will check B12 level SEPSIS - present on admission, secondary to acute COPD exacerbation, has Leukopenia - WBC 2.9, tachycardia, tachypnea Tachycardia - concerning with his obvious smoking history and emphysema. D dimer was elevated, had CTPA to check for acute pulmonary embolism, negative Greater than 30 minutes spent on d/c Discharge Information Condition at Discharge: Improved Follow Up: Weeks (2) Disposition/Orders: D/C to Another Facility Scheduled Aspirin (Aspirin Ec) 81 Mg Tablet.dr, 81 MG PO DAILYWBKFT for CAD for 30 Days, #30 Prescribed by: NUHA AMANDA MD on 08/01/19 1231 Atorvastatin Calcium (Atorvastatin Calcium) 10 Mg Tablet, 10 MG PO QHS for HLD for 30 Days, #30 Prescribed by: NUHA AMANDA MD on 08/01/19 1231 Budesonide (Budesonide) 0.5 Mg/2 Ml Ampul.neb, 0.5 MG NEB RTBID for COPD for 30 Days, #60 Prescribed by: NUHA AMANDA MD on 08/01/19 1231 Doxycycline Monohydrate (Doxycycline Monohydrate) 100 Mg Capsule, 1 CAP PO BID for COPD for 5 Days, #10 Prescribed by: NUHA AMANDA MD on 08/01/19 1231 Furosemide (Furosemide) 20 Mg Tablet, 20 MG PO DAILY for Pulmonary edema for 30 Days, #30 Prescribed by: NUHA AMANDA MD on 08/01/19 1231 Ipratropium/Albuterol Sulfate (Duoneb 0.5-3(2.5) Mg/3 Ml) 3 Ml Ampul.neb, 3 ML NEB Q4H for COPD for 30 Days, #180 Prescribed by: NUHA AMANDA MD on 08/01/19 1231 Prednisone (Prednisone) 20 Mg Tablet, 1 TAB PO DAILY for COPD for 5 Days, #5 Prescribed by: NUHA AMANDA MD on 08/01/19 1231 Scheduled PRN Acetaminophen (Tylenol) 325 Mg Tablet, 650 MG PO PRN Q4HRS PRN for TEMP OVER 100.4F OR MILD PAIN for 30 Days, #120 Prescribed by: NUHA AMANDA MD on 08/01/19 1231 Buspirone Hcl (Buspirone Hcl) 5 Mg Tablet, 5 MG PO PRN TID PRN for anxiety for 30 Days, #90 Prescribed by: NUHA AMANDA MD on 08/01/19 1231 Trazodone Hcl (Trazodone Hcl) 50 Mg Tablet, 50 MG PO PRN QHS PRN for INSOMNIA for 30 Days, #30 Prescribed by: NUHA AMANDA MD on 08/01/19 1231 NUHA AMANDA MD Aug 01, 2019 12:48
[2019-08-01 14:18] VITALS: BP 93/51
--- NOTE | 2019-08-01 15:20 | PDOC ---
PULMONARY PROGRESS NOTES Subjective Patient admitted with COPD exacerbation. CT compatible with atypical pneumonia. On Doxycycline, antibiotics, steroids and oxygen. No longer on bipap at night. SOA improving. cough improving. Vitals Vital Signs Date Time Temp Pulse Resp B/P (MAP) Pulse Ox O2 Delivery O2 Flow Rate FiO2 08/01/19 14:18 98.4 89 24 93/51 (65) 96 Nasal Cannula 3.0 98.4 ROS: No Nausea, No Chest Pain, No Abdominal Pain, No Increase Cough General: Alert Lungs: Other (equal, markedly diminished breath sounds with no rales or wheezing.) Cardiovascular: S1, S2 Abdomen: Soft Neuro Exam: Alert Extremities: No Edema Skin: Warm Labs Laboratory Tests Test 07/30/19 15:35 07/31/19 09:00 07/31/19 15:00 Lactic Acid Level 2.6 mmol/L (0.4-2.0) White Blood Count 3.5 x10^3/uL (4.0-11.0) Red Blood Count 5.00 x10^6/uL (4.30-5.70) Hemoglobin 16.2 g/dL (13.0-17.5) Hematocrit 49.8 % (39.0-53.0) Mean Corpuscular Volume 100 fL (79-100) Mean Corpuscular Hemoglobin 32 pg (25-35) Mean Corpuscular Hemoglobin Concent 33 g/dL (31-37) Red Cell Distribution Width 13.7 % (11.5-14.5) Platelet Count 137 x10^3/uL (140-400) Neutrophils (%) (Auto) 73 % (31-73) Lymphocytes (%) (Auto) 13 % (24-48) Monocytes (%) (Auto) 14 % (0-9) Eosinophils (%) (Auto) 0 % (0-3) Basophils (%) (Auto) 0 % (0-3) Neutrophils # (Auto) 2.6 x10^3/uL (1.8-7.7) Lymphocytes # (Auto) 0.5 x10^3/uL (1.0-4.8) Monocytes # (Auto) 0.5 x10^3/uL (0.0-1.1) Eosinophils # (Auto) 0.0 x10^3/uL (0.0-0.7) Basophils # (Auto) 0.0 x10^3/uL (0.0-0.2) Sodium Level 141 mmol/L (136-145) Potassium Level 5.2 mmol/L (3.5-5.1) Chloride Level 94 mmol/L (98-107) Carbon Dioxide Level > 45 mmol/L (21-32) Anion Gap (6-14) Blood Urea Nitrogen 25 mg/dL (8-26) Creatinine 0.8 mg/dL (0.7-1.3) Estimated GFR (Cockcroft-Gault) 112.0 BUN/Creatinine Ratio 31 (6-20) Glucose Level 120 mg/dL (70-99) Calcium Level 9.1 mg/dL (8.5-10.1) Magnesium Level 2.3 mg/dL (1.8-2.4) Total Bilirubin 1.0 mg/dL (0.2-1.0) Aspartate Amino Transf (AST/SGOT) 31 U/L (15-37) Alanine Aminotransferase (ALT/SGPT) 108 U/L (16-63) Alkaline Phosphatase 87 U/L (46-116) Total Protein 7.4 g/dL (6.4-8.2) Albumin 2.9 g/dL (3.4-5.0) Albumin/Globulin Ratio 0.6 (1.0-1.7) O2 Saturation 92 % (92-99) Arterial Blood pH 7.45 (7.35-7.45) Arterial Blood pCO2 at Patient Temp 64 mmHg (35-46) Arterial Blood pO2 at Patient Temp 64 mmHg (65-108) Arterial Blood HCO3 44 mmol/L (21-28) Arterial Blood Base Excess 16 mmol/L (-3-3) FiO2 28% Medications Active Scripts Medications Dose Route/Sig Max Daily Dose Days Date Category Doxycycline Monohydrate 100 Mg Capsule 1 Cap PO BID 08/01/19 Rx Prednisone 20 Mg Tablet 1 Tab PO DAILY 08/01/19 Rx Furosemide 20 Mg Tablet 20 Mg PO DAILY 08/01/19 Rx Budesonide 0.5 Mg/2 Ml Ampul.neb 0.5 Mg NEB RTBID 08/01/19 Rx Buspirone Hcl 5 Mg Tablet 5 Mg PO PRN TID PRN 30 08/01/19 Rx Trazodone Hcl 50 Mg Tablet 50 Mg PO PRN QHS PRN 30 08/01/19 Rx Tylenol (Acetaminophen) 325 Mg Tablet 650 Mg PO PRN Q4HRS PRN 30 08/01/19 Rx Aspirin Ec (Aspirin) 81 Mg Tablet.dr 81 Mg PO DAILYWBKFT 08/01/19 Rx Atorvastatin Calcium 10 Mg Tablet 10 Mg PO QHS 08/01/19 Rx Duoneb 0.5-3(2.5) Mg/3 Ml (Albuterol/Ipratropium) 3 Ml Ampul.neb 3 Ml NEB Q4H 08/01/19 Rx Impression . IMPRESSION: 1. Progressive dyspnea secondary to acute exacerbation of chronic obstructive pulmonary disease. ACUTE/CHRONIC HYPERCAPNEA RESP FAILURE, improving 2. Abnormal CT chest revealing centrilobular emphysema and mild nodular infiltrates in the bases, probable atypical pneumonia, improving. 3. Secondary pulmonary hypertension. 4. Tobacco dependent. 5. Bilateral hilar adenopathy, suspect reactive. Plan . Cont doxy, bronchodilators, steroids and low flow oxygen REPEAT CT IN 8 WEEKS Discussed importance of smoking cessation after discharge. CRYSTAL HERNANDEZ MD Aug 01, 2019 15:20
--- NOTE | 2019-08-01 16:10 | NUR ---
Discharge Note: RONAL [facility] [address] [place] Discharge instructions and discharge home medications reviewed with Other facility and a copy given. All questions have been answered and understanding verbalized. The following instructions and handouts were given: new med info, discharge instructions, smoking cessation info, malnutrition info, COPD info, respiratory failure info. Discontinued lines and drains: Peripheral IV intact. Patient discharged to Intermediate Facility with transportation via Wheel[facility] at 1610.
== END 2019-08-01 16:10 | DRG 871 ==
LOC: 2 NORTH 15:58
PROVIDERS: ADMIT Internal Medicine; ATTEND Internal Medicine
PROC: 5A09357 Assistance with Respiratory Ventilation, Less than 24 Consecutive Hours, Continuous Positive Airway Pressure (ICD-10-PCS; principal; 2019-07-29)
PROC: 5A09357 Assistance with Respiratory Ventilation, Less than 24 Consecutive Hours, Continuous Positive Airway Pressure (ICD-10-PCS; 2019-07-30)
PROC: 5A09357 Assistance with Respiratory Ventilation, Less than 24 Consecutive Hours, Continuous Positive Airway Pressure (ICD-10-PCS; 2019-07-31)
PROC: 5A09357 Assistance with Respiratory Ventilation, Less than 24 Consecutive Hours, Continuous Positive Airway Pressure (ICD-10-PCS; 2019-08-01)
DX: A41.9 Sepsis, unspecified organism (principal); J96.01 Acute respiratory failure with hypoxia; J18.9 Pneumonia, unspecified organism; J96.02 Acute respiratory failure with hypercapnia; I50.43 Acute on chronic combined systolic (congestive) and diastolic (congestive) heart failure; D69.6 Thrombocytopenia, unspecified; E88.81 Metabolic syndrome and other insulin resistance; F17.210 Nicotine dependence, cigarettes, uncomplicated; I27.29 Other secondary pulmonary hypertension; Z82.49 Family history of ischemic heart disease and other diseases of the circulatory system; Z86.73 Personal history of transient ischemic attack (TIA), and cerebral infarction without residual deficits; M19.90 Unspecified osteoarthritis, unspecified site; Z79.899 Other long term (current) drug therapy; Z71.6 Tobacco abuse counseling; J43.9 Emphysema, unspecified
CPT/HCPCS: 36415; 36600; 70450; 70551; 71275; 80053; 80061; 81001; 82140; 82565; 82607; 82805; 83036; 83605; 83735; 83880; 84145; 84443; 84484; 84520; 85007; 85025; 85027; 85610; 85651; 87040; 93005; 93306; 94640; 94660; 94760; J1650; J1940; J2060; J2920; J3490; J7620; J7626; Q9967; 92523; 97110; 97116; 97530; 97535; G0378